=== PATIENT | female | born 1970 | race Caucasian/White ===

== ENCOUNTER 2022-05-29 10:12 | Inpatient (IN) | payer OTHER, SELFPAY ==
[2022-05-29] VITALS (39 sets, daily range): BP systolic 112–138; BP diastolic 49–92; PULSE 73–92; RESP 12–18; TEMP 36.4–37.7; O2SAT 97–100; BMI 30.4
[2022-05-29] MEDS: LACTATED RINGERS 1000 ML 1,000 ML 100 ML IV ×2 (10:40→12:06)
[2022-05-29] MEDS: SODIUM CHLORIDE 0.9 % (FLUSH) 10 ML SYRINGE IVF (10:40)
[2022-05-29 11:00] LABS: Hemoglobin* 11.3 gm/dL (12.0-16.0)
[2022-05-29] MEDS: CLINDAMYCIN 900 MG/50 ML-D5W IVPB (11:11)
[2022-05-29 11:19] LABS: Creatinine* 0.7 mg/dL (0.5-1.5); Est. Creatinine Clearance* 87.48; Estimated Glomerular Filt Rate 106 ml/min
[2022-05-29 11:25] LABS: Ur HCG Qualitative* Negative (Negative)
--- NOTE | 2022-05-29 11:25 | W.PM.NB ---
Nerve Block Nerve Block Time Seen by Provider: 11:13 Date Seen: 05/29/22 Type of block requested by surgeon for post-operative analgesia: TAP Side: bilateral Time out performed: Yes Verification of patient name: Yes Verification of date of : Yes Site marking: site marked Name of person performing procedure: Melvin Continuous monitoring Was continuous monitoring of O2 sat, B/P, secured entrance monitor, recorded every 15 minutes?: Yes Procedure Checklist: sterile prep, needles and gloves Ultrasound guided. Images saved: Yes Medications given in 5ml increments after negative aspiration: Marcaine %: 0.25 mL: 30 Needle gauge: 20 and Exparel mL: 10 Patient tolerated procedure well: Yes Additional comments: Needle noted adjacent to nerve Block Charges Block Charge (with Pro Fee): TAP Bilateral Use of Ultrasound Machine for Block: Yes- US Guidance/pain block
[2022-05-29] MEDS: BUPIVACAINE 0.5 %/EPI 1:200K 30 ML INJECTION (12:50)
--- NOTE | 2022-05-29 14:14 | W.ANESCHARGE ---
Anesthesia Charges Start Date/Time Anesthesia Start Date: 05/29/22 Anesthesia Start Time: 11:03 Stop Date/Time Anesthesia Stop Date: 05/29/22 Anesthesia Stop Time: 14:14
[2022-05-29] MEDS: HYDROmorphone 0.5 mg/0.5 ml inj IVP (14:25)
--- NOTE | 2022-05-29 14:34 | P.PCNOB_ITS ---
Procedure Type of Hysterectomy: Total Abdominal Pre-op/Post-op diagnoses: Pre-Op/Post-Op Diagnoses Operation Date: 05/29/22 11:50 <No data on this case meets the specified criteria> Procedure: Procedures Operation Date: 05/29/22 11:50 Actual Procedure Side Surgeon Diagnostic Laparoscopy and bilateral salpingectomy Open Total Abdominal Hysterectomy Bilateral Jovana Sorto MD Radiological Defense Officer: Sabrina Boyce Estimated blood loss (mL): 200 Anesthesia type: General Complications: none Fluid amount (mL): 1,800 Urine output (mL): 1,000 Weight of Uterus: 416 g Specimen: uterus, left tube and right tube Disposition: PACU Narrative: PREOPERATIVE DIAGNOSIS: 51-year-old with abnormal uterine bleeding - fibroids POSTOPERATIVE DIAGNOSIS: Same. NAME OF PROCEDURE: 1. Diagnostic laparoscopy 2. Laparoscopic bilateral salpingectomy 3. Conversion to total abdominal hysterectomy SURGEON: Jovana Sorto MD PERFECT BIND MACHINE OPERATOR: Sabrina Boyce MD. ANESTHESIA: General endotracheal, TAP block, and Local COMPLICATIONS: None ESTIMATED BLOOD LOSS: 200 mL URINE OUTPUT: 1000 mL clear urine at the end of the procedure IV FLUID: 1800 mL DRAINS: Aguero to gravity. FINDINGS: Exam under anesthesia: Mons normal, clitoris normal, urethral meatus normal. Labia minora and majora normal in appearance bilaterally. Perineum and anus normal appearance. Vaginal introitus normal appearance. Vaginal pink and well rugated with scant white discharge. Cervix pink and without lesion. Uterus sounded to 9 cm. Laparoscopy: Enlarged uterus that occupies most of the pelvic space. Minimal filmy adhesions of sigmoid colon to left sidewall. Filshie clip noted near the cornua of the left fallopian tube. The right fallopian tube appeared intact. However, after right salpingectomy, Essure coils were noted protruding from the right cornua. Normal bilateral ovaries. Normal-appearing liver. PROCEDURE IN DETAIL: Patient was taken to the operating room with IV running. She received clindamycin 900 mg and gentamicin 5mg/kg as preoperative prophylaxis. She was positioned in dorsal lithotomy position with her legs fully supported in Yellofin stirrups. General anesthesia was administered. She was prepped and draped in the usual sterile fashion. Pelvic exam under anesthesia was performed for the above-noted findings. Speculum was inserted. Cervix visualized and grasped along its anterior lip with a single-tooth tenaculum. Cervix was dilated with Hegar dilators to accommodate the VCare uterine manipulator. A medium-sized colpotomizer cup was selected. The tip of the uterine manipulator was inserted through the cervix into the uterine cavity and the balloon was inflated. The speculum was removed. The colpotomy cup was advanced, surrounding the cervix, and the proximal occluder was moved up along the shaft of the VCare and fixed in place. Aguero catheter was placed. Patient's legs were then placed in neutral position. Attention was turned to patient's abdomen. Infraumbilical area was infiltrated with a small amount of 0.5% Bupivacain. A 5 mm infraumbilical incision was made with a scalpel and carried down to the underlying layer of fascia with the hemostat. 5 mm camera was placed within the 5 mm Fios Kii trocar, and advanced under direct visualization through the anterior abdominal wall into the peritoneal cavity, while tenting up the anterior abdominal wall. The trocar was removed. The balloon was inflated, holding the port in place. Pneumoperitoneum was achieved. Survey of the abdomen and pelvis revealed the above-noted findings. Three additional port sites were created. The first was in the patient's left lower quadrant, just superomedial to the left ASIS. The second was a hand's breadth superior to and slightly medial to the first. The third was in the patient's right lower quadrant, just superomedial to the right ASIS. An 11 mm incision was made in the left lower quadrant, and a 5 mm incision was made at the other 2 sites, after assuring that large vessels were out of harm's way. A 11 mm Fios Kii port was inserted at the left lower quadrant site, and a 5 mm Fios Kii port at each of the other 2 sites, under direct visualization and without complication. The balloon on each of the four ports was inflated, holding each in place. Attention was first turned to the right fallopian tube, which was divided from the mesosalpinx, using the Powerseal device, proceeding laterally to medially, and the tube was amputated at the right uterine cornua. After removal of the fallopian tube, Essure coils were noted protruding from the right cornua. This was removed through the port site and sent to pathology. This procedure was repeated on the patient's left side, and the right fallopian tube was also amputated at the cornua and removed from the patient's abdomen. This was also sent to pathology for further analysis. The left round ligament was cauterized and transected with the Malena shaw. The utero-ovarian ligament was cauterized and transected, and the remnants of the right broad ligament were cauterized and transected between these two structures. The bladder flap was created on the patient's left side, moving laterally to medially. At this point, visualization was too obscured from the enlarged uterus to safely cauterize and transect the left uterine artery. There was minimal movement with the uterine manipulator despite multiple tries. Unable to safely to operate on right adnexa as well due to limited visualization. At this point, decision was made to convert from laparoscopic hysterectomy to an open abdominal hysterectomy. The fascia of the 11 mm LLQ port was closed with Luis Angel-Dheeraj laparoscopic closure device. Attention was then turned toward the open abdominal hysterectomy. A Pfannenstiel skin incision was made with a scalpel. This incision was carried down to the underlying layer of fascia with the Bovie. The fascia was incised in the midli ne and the incision extended laterally. The superior and inferior aspects of the fascial incision were grasped with Romaine clamps and the underlying rectus muscles dissected off sharply. The rectus muscles were in the midline. The underlying peritoneum was identified and entered bluntly. The peritoneal incision was extended superiorly and inferiorly with good visualization of the bladder. The patient was placed in some mild Trendelenburg positioning. The bowels were packed cephalad using a large moistened laparotomy sponge. The Robert O retractor was placed in the incision with care to make sure that all bowels were out of the way. This provided excellent visualization of the pelvis. [place] clamps were placed at the cornua bilaterally for traction. Both ureters were identified along their courses within the pelvic sidewall by palpation, patient body habitus made limited visualization. The right round ligament cauterized and ligated with the Powerseal. The anterior leaf of the broad ligament was opened to the midline from the right side. Down to the level of the cervix. The Powerseal was then used to cauterize and ligate towards the uterine arteries. The uterine vessels were skeletonized on the right side. The vessels were cauterized and transected. Excellent hemostasis was obtained. Attention was then turned to the left side. The anterior leaf of the broad ligament was opened from the left side to the midline durin the laparoscopic portion of this procedure. The bladder flap was then created bluntly. The bladder was further pushed caudally with a sponge stick. Again, the Powerseal was used to cauterize and ligate along the uterine body and down toward the left uterine vessels. Hemostasis was visualized. The left uterine vessels were ske letonized and then cauterized and transected. Subsequent pedicles were taken to reach the colpotomy cup. This was done There was bleeding noted near left uterine artery pedicle so a figure of eight was placed with 2-0 vicryl. After placement of the figure of eight, excellent hemostasis was obtained. At this point, bovie was moved along the circumference of the colpotomizer cup, until the uterus and cervix were freed from their attachments to the pelvis. The uterus with attached cervix was then passed off the field. The vaginal cuff was grasp with two Allis clamps. Excess bleeding was noted on the posterior vaginal cuff lowers the left side that was not amenable to bovie cautery. I placed continuous locking stitch with 0-vicryl along the later third of the posterior vaginal cuff towards the left vaginal angle. Afterwards, excellent hemostasis was obtained. The vaginal cuff was then closed with 0 vicryl continuous locking due to increased bleeding at the vaginal cuff. The abdomen and pelvis were then copiously irrigated and not active bleeding was identified. All laparotomy sponges and instruments were then removed. The subfascial tissues were carefully inspected and hemostasis assured. The fascia was re-approximated in a running fashion with 0 vicryl. The subcutaneous tissues were copiously irrigated and hemostasis assured. The subcutaneous adipose layer was re-approximated in 1 layers 4-0 vicryl in a running manner. The skin was closed in a subcuticular fashion with 4-0 Vicryl. A silver dressing was applied. The skin of each port site was closed in a subcuticular fashion with 4 0 Monocryl. Surgical glue was applied above this. The patient tolerated the procedure well. Sponge, lap, needle, instrument counts were reported as correct x2. After the drapes were removed, patient noted to have a 2 cm length superficial burn underneath her xyphoid, likely from laparoscopic light cord. loss control manager was notified to inspect the light cord in question for any malfunction. Bacitracin, 4x4 and Tegaderm was applied to the area. The patient was taken to recovery room awake and in stable condition. The uterus was weighed at the conclusion of the procedure, weight was 416 g in the operating room. PATHOLOGY SPECIMEN(S): Uterus, cervix, left fallopian tube, right fallopian tube.
[2022-05-29 15:35] LABS: Hemoglobin* 10.7 gm/dL (12.0-16.0)
[2022-05-29] MEDS: ONDANSETRON 2 MG/ML inj 4 MG IVP ×2 (15:42→21:59)
[2022-05-29] MEDS: levETIRAcetam 500 MG TABLET 1500 MG PO (16:21)
[2022-05-29] MEDS: lamoTRIgine 100 MG TABLET 300 MG PO (16:21)
[2022-05-29] MEDS: HYDROCODONE-ACETAMIN 5-325 MG 1 TAB PO ×2 (17:37→19:37)
[2022-05-29] MEDS: IBUPROFEN 600 MG TABLET PO ×2 (17:37→23:44)
--- NOTE | 2022-05-29 19:07 | PC.NURSE ---
shift note: Pt back from surgery at 1455, A&O, VSS on RA. Pt reporting pain at 6/10 but referring to the pain as tolerable and declined medication. Aqua-K pad given for comfort with pt reporting relief. PRN Zofran given for nausea with pt reporting relief, no emesis. Pt given PRN Rudyard and scheduled Ibuprofen around 1745, pt reported good relief, declined need for further pain medication. Surgical dressings C/D/I, abdominal binder in place. Aguero patent and draining clear, pale yellow urine. Pt tolerated pudding, jello, and water with no emesis. Pt resting in bed with call light within reach.
[2022-05-29] MEDS: lamoTRIgine 100 MG TABLET 150 MG PO (20:59)
[2022-05-29] MEDS: ZOLPIDEM 5 MG TABLET PO (21:00)
[2022-05-29] MEDS: OXYCODONE 5 MG TABLET PO (23:44)
[2022-05-29] MEDS: LACTATED RINGERS 1000 ML 1,000 ML 25 ML IV (23:44)
[2022-05-30 03:00] VITALS: BP 122/74; PULSE 79; RESP 20; TEMP 37; O2SAT 97
[2022-05-30] MEDS: HYDROCODONE-ACETAMIN 5-325 MG 1 TAB PO ×4 (04:42→22:08)
[2022-05-30] MEDS: IBUPROFEN 600 MG TABLET PO ×3 (06:04→19:44)
[2022-05-30] MEDS: lamoTRIgine 100 MG TABLET 300 MG PO ×3 (06:05→16:06)
--- NOTE | 2022-05-30 06:26 | PC.NURSE ---
END OF SHIFT NOTE: PT PLEASANT AND COOPERATIVE. DENIES CP, SOB, N/V. AMBULATES WITH SBA/A1. VSS ON RA; AFEBRILE. GILLESPIE PATENT. LR@100ML/HR TO RIGHT HAND IV. PT RATES ABDOMINAL PAIN 5-8/10 WITH RELIEF FROM SCHEDULED AND PRN PAIN MEDS (SEE eMAR), HEAT FROM AQUA-K PAD AND ABD BINDER. PT TOLERATING REGULAR DIET. WALKED VELOZ x1 (100FT). ABDOMINAL INCISION AND LAP SITES C/D/I.
[2022-05-30 07:00] VITALS: BP 137/81; PULSE 79; RESP 18; TEMP 37.3; O2SAT 96
--- NOTE | 2022-05-30 08:24 | P.GYNPN_ITS ---
FOOD PREPARATION SUPERVISOR - A/P Assessment and plan (1) Anemia: Status: Acute Plan Postoperative Review: - Admitted for: Surgery - Surgical procedure: NAME OF PROCEDURE: 1. Diagnostic laparoscopy 2. Laparoscopic bilateral salpingectomy 3. Conversion to total abdominal hysterectomy - Skin incision: 4 laparoscopic port sites. Pfannestiel - Closure: sutures - Estimated blood loss: 200 mL - Intraoperative Complications: none - Urine output: adequate - Preop H/H: 10.7 - Postop H/H: 9.7 Postoperative care: - Diet: Advance as tolerated - Fluid: Encourage oral intake - Activity: Encourage ambulation and incentive spirometry - Pain: [place], tylenol and Ibuprofen - DVT prophylaxis: SCDs and TEDs when not ambulating Dispo: Patient is POD#1. Need the following milestones: increase ambulation and urinate without schmidt. Anticipate discharge POD#2. Postoperative Procedures: Procedures Operation Date: 05/29/22 11:50 Actual Procedure Side Surgeon p Attempted Laparoscopic and converted to Total Abdominal Hysterectomy, Bilateral Salpingectomy, Cystoscopy Bilateral Jovana Nasima Sorto MD Postoperative day: 1 Time Spent With Patient Time: Total time spent is greater than 50% in coordination of care (as documented) at patient's floor/unit and/or counseling patient: Time with patient: less than 15 minutes FOOD PREPARATION SUPERVISOR- PN:Subj Post-Op Subjective Time Seen by Provider: 08:24 Date Seen: 05/30/22 Interval history: Overnight patient did well. Only complains of mild gas pain and fatigue. She took a walk around the unit at 4 am and tolerated it well. Her pain is well controlled on oral pain medications. She is tolerating a regular diet. She has passed flatus. She is ambulating without difficulty. She had great urine output. Schmidt will come out this AM. Patient denies chest pain, SOB, n/v, headache, or dizziness. Discussed with patient that there was a?2 cm length superficial burn underneath her xiphoid. She states that's where she had a mole removed and had some irritation before. She also state that her new detergent has been given her rashes on her face as well so she wonders if that could be. I discuss with her it's most likely a superficial burn from our light cord. Bacitracin should help. Denies denies any irritation from it currently. Post Operative Details: Post-operative day number #1: status post diagnostic laparoscopy, laparoscopic bilateral salpingectomy, and conversion to total abdominal hysterectomy. FOOD PREPARATION SUPERVISOR-PN: Obj Exam Physical Exam: Vital signs: Temp Pulse Resp BP Pulse Ox O2 Del Method 99.1 F 79 18 137/81 96 05/30/22 07:00 05/30/22 07:00 05/30/22 07:00 05/30/22 07:00 05/30/22 07:00 05/30/22 07:00 Narrative: VITAL SIGNS: See nursing notes in the medical record above. She is afebrile. GENERAL: Pleasant, fatigued woman in no acute distress. PSYCHIATRIC: Alert and oriented x3. Normal speech pattern and affect. HEART: Regular rate and rhythm. LUNGS: Clear to auscultation bilaterally. ABDOMEN: Soft, appropriately tender, and mildly distended with positive bowel sounds throughout. INCISION(S): Port sites (4): All clean, dry and intact. The skin adhesive gel is partially removed. No evidence of erythema, induration, skin separation or hernia. Pfannenstiel incision: covered with silver dressing. PELVIC: Deferred. EXTREMITIES: Without cyanosis, clubbing, or edema. SCDs on NEUROLOGIC: Grossly intact Urinary Catheter Management: Schmidt: Cath placed during this visit: yes Urethral indwelling: Yes Reason for continuing: surgical procedure Insertion date: 05/29/22 Insertion time: 11:05 FOOD PREPARATION SUPERVISOR - PN: Obj Data Labs Labs: Laboratory Results - last 24 hr 05/29/22 05/29/22 05/29/22 10:30 10:51 10:51 Hgb 11.3 L Creatinine 0.7 Estimated Creat Clear 87.48 Estimated GFR 106 Urine HCG, Qual Negative Blood Type Antibody Screen 05/29/22 05/29/22 10:51 15:27 Hgb 10.7 L Creatinine Estimated Creat Clear Estimated GFR Urine HCG, Qual Blood Type A Positive Antibody Screen NEGATIVE
[2022-05-30] MEDS: SIMETHICONE 80 MG TAB.CHEW 160 MG PO (09:39)
[2022-05-30] MEDS: DOCUSATE SODIUM 100 MG CAPSULE PO (09:39)
[2022-05-30] MEDS: ONDANSETRON 2 MG/ML inj 4 MG IVP ×2 (11:02→16:25)
[2022-05-30 11:29] LABS: Hemoglobin* 9.7 gm/dL (12.0-16.0)
[2022-05-30 15:00] VITALS: BP 126/84; PULSE 73; RESP 16; TEMP 37.4; O2SAT 99
[2022-05-30 15:20] VITALS: TEMP 37.4
[2022-05-30] MEDS: levETIRAcetam 500 MG TABLET 1500 MG PO (16:05)
[2022-05-30] MEDS: SODIUM CHLORIDE 0.9 % (FLUSH) 10 ML SYRINGE IVF (16:25)
--- NOTE | 2022-05-30 17:16 | PC.NURSE ---
End of shift-- Very pleasant and cooperative, alert and oriented patient. VSS and pt is afebrile. SPO2 maintained >90% on RA. Pain appears well managed with [place] and Motrin. Dressing to lower abdomen is dry and intact with old, dry drainage present. Pt also has 2x lap sites GEODETIC SURVEY DIRECTOR with steri strips and 1 small area of skin irritation on upper abdomen covered with a small dressing that is C/D/I. LS CTA. BS+ x4 and pt is passing flatus. She denied nausea, but did request Zofran to prevent it. She tolerated a regular diet, but ate only very small amounts today. Aguero drained approximately 1150ml of urine today and was DC'd. Pt has voided since. She has had a small amount of vaginal bleeding including 1x quarter sized clot. She ambulated in hallway with SBA and was up to BR independently and tolerated it well. Report to RITU Portillo.
[2022-05-30 19:00] VITALS: BP 117/83; PULSE 80; RESP 16; TEMP 37.4; O2SAT 96
[2022-05-30] MEDS: levETIRAcetam 500 MG TABLET PO (21:02)
[2022-05-30] MEDS: lamoTRIgine 100 MG TABLET 150 MG PO (21:02)
[2022-05-30 23:00] VITALS: BP 118/66; PULSE 84; RESP 16; TEMP 37.5; O2SAT 96
[2022-05-31] MEDS: IBUPROFEN 600 MG TABLET PO ×2 (02:00→06:03)
[2022-05-31 03:00] VITALS: BP 105/72; PULSE 80; RESP 16; TEMP 36.6; O2SAT 96
[2022-05-31] MEDS: HYDROCODONE-ACETAMIN 5-325 MG 1 TAB PO ×2 (04:03→10:11)
--- NOTE | 2022-05-31 05:50 | PC.NURSE ---
Shift note: Pt is doing well, able to ambulate to the BR independently. Pain has been between 3 and 6. No SOB, Cough, and n/v noted. Dressing appears clean and dry. Able to urinate many times after catheter removal. Vitally stable.
[2022-05-31] MEDS: levETIRAcetam 500 MG TABLET 1500 MG PO (06:03)
[2022-05-31] MEDS: lamoTRIgine 100 MG TABLET 300 MG PO (06:03)
[2022-05-31 07:45] VITALS: BP 123/74; PULSE 76; RESP 16; TEMP 36.8; O2SAT 97
--- NOTE | 2022-05-31 09:27 | P.DS_ITS ---
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 Indication for surgery: Severe menorrhagia with known uterine leiomyoma. Intraoperative findings were notable for: Exam under anesthesia: Mons normal, clitoris normal, urethral meatus normal. L abia minora and majora normal in appearance bilaterally. Perineum and anus normal appearance.? Vaginal introitus normal appearance.? Vaginal pink and well rugated with scant white discharge. Cervix pink and without lesion. Uterus sounded to 9 cm. Laparoscopy:? Enlarged uterus that occupies most of the pelvic space. Minimal filmy adhesions of sigmoid colon to left sidewall.? Filshie clip noted near the cornua of the left fallopian tube.? The right fallopian tube appeared intact.? However, after right salpingectomy, Essure coils were noted protruding from the right cornua.? Normal bilateral ovaries.? Normal-appearing liver. She had a diagnostic laparoscopy that was converted to total abdominal hysterectomy. Postoperative course has been uneventful. Vitals have been stable. She has remained afebrile. Today, on postoperative day 1, she reports the pain is well controlled. She has been able to ambulate Without difficulty. She is tolerating regular diet. She is passing flatus. Aguero catheter has been removed, and she is voiding without difficulty. 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 See nursing notes in the medical record above. She is afebrile. GENERAL:? Pleasant, fatigued woman in no acute distress. PSYCHIATRIC: Alert and oriented x3. Normal speech pattern and affect. HEART:? Regular rate and rhythm. LUNGS:? Clear to auscultation bilaterally. ABDOMEN:? Soft, appropriately tender, and soft positive bowel sounds throughout. INCISION(S): Port sites (4): All clean, dry and intact. The skin adhesive gel is partially removed. No evidence of erythema, induration, skin separation or hernia. Pfannenstiel incision: covered with silver dressing. Silver dressing intact. PELVIC:? Deferred. EXTREMITIES:? Without cyanosis, clubbing, or edema. SCDs on NEUROLOGIC:? 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 - DS: Data Data Completed and Pending Labs on day of discharge: Labs from last 24 hours 05/30/22 11:22 Hgb 9.7 L Procedures Procedures: Procedures Operation Date: 05/29/22 11:50 Actual Procedure Side Surgeon p Attempted Laparoscopic and converted to Total Abdominal Hysterectomy, Bilateral Salpingectomy, Cystoscopy Bilateral Jovana Sorto MD Complications: none Discharge Plan Discharge Disposition: Home, Self-Care Date of Admission: 05/29/22 10:12 Attending Provider on Discharge: Jovana Sorto Primary Care Provider: Jose Sosa Condition: Stable Anticipated Discharge Date/Time: 05/31/22 10:03 Discharge Medications: New acetaminophen 325 mg Tablet 650 mg PO Q4H PRN (Reason: minor pain) 30 Days Qty: 180 0RF docusate sodium 100 mg Capsule 100 mg PO BID PRN (Reason: Constipation) 30 Days Qty: 60 0RF ibuprofen 600 mg Tablet 600 mg PO Q6H 30 Days Qty: 120 0RF simethicone 80 mg Tablet,Chewable 160 mg PO Q4H PRN30 Days Qty: 180 0RF sennosides [Senna Lax] 8.6 mg tablet 8.6 mg PO DAILY Qty: 30 0RF ferrous sulfate 27 mg iron tablet 27 mg PO DAILY Qty: 30 0RF hydrocodone-acetaminophen 5-325 mg tablet 1 tab PO Q6H PRN (Reason: pain) Qty: 20 0RF Continued lamotrigine [Lamictal] 100 mg tablet 150 - 300 mg PO QID Rx Instructions: 300MG AM, NOON, SUPPER AND 150MG HS levetiracetam [Keppra] 500 mg tablet 500 - 1,500 mg PO TID Rx Instructions: 1500MG AM AND SUPPER, 500MG HS lorazepam 1 mg tablet 1 mg PO DAILY PRN Label Comments: TAKE ONE TABLET BY MOUTH NEEDED FOR SEIZURE AURA triamcinolone acetonide 0.5 % ointment 1 applic TOPICAL BID PRN Label Comments: APPLY TOPICALLY TO AFFECTED AREA(S) TWO TIMES DAILY. USE FOR UP TO 2 WEEKS. TAKE A WEEK OFF AND REPEAT. Discharge Orders: Discharge Order (Routine); Ordered 05/31/22 Ordered By: Jovana Sorto Patient Education: Iron Supplements (By mouth), Acetaminophen (By mouth), Hydrocodone/Acetaminophen (By mouth) (Vicodin, [place], Lortab), Ibuprofen (By mouth), Simethicone (By mouth), Laxative, Stool Softeners (By mouth) (Doculax, Colace, Colace Clear, DSS), Senna (By mouth), Hysterectomy (DC) Activity Level: Activity as Tolerated Discharge Diet: Regular Follow Up Appointments: Jose oSsa MD [Primary Care Provider] - Forms: [facility] Info Instructions Discharge Comments: Total Abdominal Hysterectomy POSTOPERATIVE INSTRUCTIONS ACTIVITY No heavy lifting/pushing/pulling for 4-6 weeks. Do not lift anything more than about 5-10 lbs (such as laundry, groceries, children, pets), vacuum, push heavy doors or grocery carts, etc. You may climb stairs as tolerated. Do not put anything in the vagina for 6 weeks after surgery unless otherwise ins tructed by your doctor (including tampons, douching, sexual intercourse, etc). No driving for about 2 weeks after surgery, while you are taking narcotic pain medication, or until you feel that you are ready. Practice checking your blind spot and stepping hard on the brake. Avoid sitting or lying in bed for more than 2 hours at a time while you are awake to reduce your risk of blood clots. You may return to work when directed by your physician. Please contact your doctor if you need any return to work letters or medical leave paperwork to be completed. WOUND CARE You will have one large incision on your abdomen. There will be dissolvable stitches under your skin that do not need to be removed. You will also have a silver dressing that comes off in 1 week. If the seal is broken on that silver dressing, it's ok to take it off early. Shower daily after surgery. Clean your incision with mild antibacterial soap and water. Pat your incision dry with a clean towel. No tub baths until wound is completely healed. Wash your hands frequently, especially before touching your incision, changing any dressings, after using the restroom, and before eating. PAIN MANAGEMENT Take your oral pain medication as needed. You should be taking Ibuprofen 600mg every 6 hours with 650 gram of Tylenol every 6 hours. You can take these together every six hours or alternate them every 3 hours. You should then take the [place] 5 as needed if you have breakthrough pain on top of the Tylenol and Ibuprofen. Some pain medications can cause constipation so you should take a stool softener (i.e. colace/senna) while you are on these medications. You may also take milk of magnesia or Miralax for constipation. WHAT TO EXPECT AT HOME Recovery from surgery is generally 4-6 weeks, but sometimes longer for more strenuous activity. It is normal to be very tired during this time. It is normal to have some drainage or a small amount of vaginal bleeding after surgery which may last up to 6 weeks. You will most likely experience gas pain, abdominal swelling, or shoulder pain for 24-72 hours after surgery. This is from the carbon dioxide gas put into your abdomen to better visualize your organs. A warm shower, heating pad, and/or walking may help. WHEN TO CALL YOUR DOCTOR: Fever (>100.4?F or 38.0?C) or chills. Incision problems such as redness, warmth, swelling, or foul smelling drainage. Severe nausea or persistent vomiting. Bright red vaginal bleeding (soaking >1 pad/hour) or foul smelling vaginal drainage. Severe pain not relieved with pain medication. Pain and swelling in your legs, especially if it is only on one side and not the other. Pain with urination, cloudy urine, or foul smelling urine. Or if you have any other problems or questions. CALL 911 OR GO TO THE EMERGENCY ROOM IF YOU HAVE: Any shortness of breath, difficulty breathing, or chest pain.
--- NOTE | 2022-06-09 10:24 | P.GYNHP_ITS ---
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 Indication for surgery: menorrhagia and pelvic pain likely secondary to fibroids TVUS on 04/09/2022: Heterogenously hypoechoic/isoechoic mass arising from the uterine fundus measuring 4.8 x 6.3 x 4.1 cm. The uterus measures 10.7x7.3x7.5 cm. Endometrium measures 6 millimeters. The ovaries are not visualized. Final impression: Large uterine fibroid measuring 6.3 cm. No changes since her last visit. She did see her PCP for preop clearance, Dr. Melly huntley. Recommendations include: Take scheduled seizure medication as close to on time schedule as possible.. Medications: 1. Lamictal - 300 mg TID QD + 150 mg at bedtime 2. Keppra - take 1500 mg morning and dinner, 500 mg at bedtime Past surgical hx 1. BTL 2010 No interval changes in her history. Review of Systems Status of ROS: Reports: 10 or more systems reviewed and unremarkable except as noted in History and below [facility] Medical History (Updated 05/31/22 @ 09:45 by Jovana Sorto MD) Asthma Seizure disorder Surgical History (Updated 04/15/22 @ 12:47 by Mayela Miller) History of surgery on wrist (2005) History of tubal ligation (2010) Family History (Updated 04/15/22 @ 12:49 by Mayela Miller) Mother Coronary artery disease Father High cholesterol Maternal Grandfather Coronary artery disease Stroke Maternal Grandmother Coronary artery disease Stroke Paternal Grandfather High cholesterol High blood pressure Diabetes Paternal Grandmother High cholesterol High blood pressure Diabetes Social History Smoking Status: Never smoker Do you use any of these nicotine containing products: None Second hand tobacco smoke exposure: No How often do you have six or more drinks on one occasion: Never AUDIT-C Alcohol total score: 0 Non-prescribed substance use: denies use service: No Meds Home Medications and Allergies Home Medications Medication Instructions Recorded Confirmed Type lamotrigine 100 mg tablet 150 - 300 mg PO QID 04/16/22 05/29/22 History (Lamictal) levetiracetam 500 mg tablet 500 - 1,500 mg PO TID 04/16/22 05/29/22 History (Keppra) lorazepam 1 mg tablet 1 mg PO DAILY PRN 05/27/22 05/29/22 History triamcinolone acetonide 0.5 % 1 applic topical BID PRN 05/27/22 05/29/22 History topical ointment Allergies Allergy/AdvReac Type Severity Reaction Status Date / Time penicillin V Allergy Unknown Unknown Verified 05/29/22 10:40 [employer] - Exam Physical Exam: Vital signs: Temp Pulse Resp BP Pulse Ox O2 Del Method 98.3 F 76 16 123/74 97 05/31/22 07:45 05/31/22 07:45 05/31/22 07:45 05/31/22 07:45 05/31/22 07:45 05/31/22 07:45 Narrative: Physical exam: General: No acute distress Psych: Alert and oriented x3, full affect Heart: Regular rate and rhythm, no murmur rub or gallop Lungs: Clear to auscultation bilaterally Abdomen: Soft, no tenderness, rebound, or guarding, no masses Skin: No lesions or rashes Lower extremities: No edema or erythema Pelvic exam: Deferred to OR Assessment and Plan Assessment and plan (1) Uterine fibroid: Status: Acute (2) Menorrhagia: Status: Acute (3) Anemia: Status: Acute Plan - Will proceed with scheduled surgery - Plan for inpatient admission after surgery
== END 2022-05-31 10:45 | disposition home or self-care (01) | DRG 742 ==
PROVIDERS: Admitting Provider Obstetrics & Gynecology; PCP Family Medicine; Visit Provider Obstetrics & Gynecology
PROC: 0UT94ZZ Resection of Uterus, Percutaneous Endoscopic Approach (ICD-10-PCS; principal; 2022-05-29 11:30)
DX: N92.0 Excessive and frequent menstruation with regular cycle (principal); D62 Acute posthemorrhagic anemia; D25.9 Leiomyoma of uterus, unspecified; J45.909 Unspecified asthma, uncomplicated; G40.909 Epilepsy, unspecified, not intractable, without status epilepticus; Z53.31 Laparoscopic surgical procedure converted to open procedure; T21.11XA Burn of first degree of chest wall, initial encounter; Y81.3 Surgical instruments, materials and general- and plastic-surgery devices (including sutures) associated with adverse incidents; Y92.234 Operating room of hospital as the place of occurrence of the external cause
CPT/HCPCS: 00840; 36415; 64488; 76942; 81025; 82565; 85018; 86850; 86900; 86901; 88307; A9270; C9290; J0131; J0330; J1100; J1170; J1580; J1885; J2250; J2405; J2704; J3010; J3475; J3490; J7120; S0077

== ENCOUNTER 2023-05-12 08:19 | Outpatient (CLI) | payer BC, SELFPAY | END 2023-05-12 08:20 | disposition home or self-care (01) | PROVIDERS: PCP Internal Medicine; Visit Provider Emergency Medicine | DX: R56.9 Unspecified convulsions (principal); R41.82 Altered mental status, unspecified | CPT/HCPCS: A0425; A0427 ==

== ENCOUNTER 2023-05-12 09:07 | Emergency (ER) | payer BC, SELFPAY ==
[2023-05-12] VITALS (17 sets, daily range): BP systolic 123–153; BP diastolic 82–105; PULSE 72–90; RESP 16–18; TEMP 36.8–37.4; O2SAT 94–99; BMI 28.2
--- NOTE | 2023-05-12 09:05 | ED.GENADULT ---
HPI - General Adult General Time Seen by Provider: 09:05 Date Seen: 05/12/23 Chief complaint: Seizure Stated complaint: seizures Source: patient Mode of arrival: EMS History of Present Illness HPI narrative: Tashia is a 52-year-old female, past medical history includes complex partial seizures, generalized anxiety disorder, presents emergency department via EMS with a seizure. According to family, including and daughter, father got up around 4:00 a.m., is going to let the dog out, spoke with the patient she explained that she was feeling too tired, he went and got his coffee. Daughter heard some noise in the bathroom, she went there and behind the bed her mom was having a seizure, she says it lasted around a minute, by the time father got there are it resolved, she was confused and postictal, once EMS arrived they did not give her any medications. Patient did have some diarrhea on Thursday otherwise he just came back from [facility], she had a good vacation. Patient has not had a seizure for over 9 years. Patient is currently on Lamictal and Briviact she has being seeing Dr. Paloma Herrmann ([facility], and since insurance changed, she saw her 2 months ago. Patient denies any pain at this time. Related Data Home Medications Medication Instructions Recorded Confirmed lorazepam 1 mg tablet 1 mg PO DAILY PRN 05/27/22 05/12/23 brivaracetam 100 mg tablet 100 mg PO BID 04/23/23 05/12/23 (Briviact) brivaracetam 50 mg tablet 50 mg PO BID 04/23/23 04/23/23 (Briviact) citalopram 10 mg tablet mg PO 04/23/23 04/23/23 citalopram 20 mg tablet 20 mg PO DAILY 04/23/23 04/23/23 lamotrigine 100 mg tablet 150 - 400 mg PO QID 04/23/23 05/12/23 (Lamictal) Previous Rx's Medication Instructions Recorded acetaminophen 325 mg tablet 650 mg (2 x 325 mg) PO Q4H PRN 05/31/22 minor pain 30 days #180 tabs brivaracetam 100 mg tablet 200 mg (2 x 100 mg) PO BID #60 tabs 05/12/23 (Briviact) Allergies Allergy/AdvReac Type Severity Reaction Status Date / Time penicillin V Allergy Unknown Unknown Verified 05/12/23 09:07 Review of Systems Status of ROS: Reports: 10 or more systems reviewed and unremarkable except as noted in History and below [facility] Surgical History (Updated 04/23/23 @ 14:45 by Macy Payton MD) History of bilateral salpingectomy ?Z90.79 - Acquired absence of other genital organ(s) (ICD-10) History of abdominal hysterectomy ?Z90.710 - Acquired absence of both cervix and uterus (ICD-10) History of tubal ligation (2010) ?Z98.51 - Tubal ligation status (ICD-10) Family History (Updated 04/15/22 @ 12:49 by Mayela Miller) Mother Coronary artery disease Father High cholesterol Maternal Grandfather Coronary artery disease Stroke Maternal Grandmother Coronary artery disease Stroke Paternal Grandfather High cholesterol High blood pressure Diabetes Paternal Grandmother High cholesterol High blood pressure Diabetes Social History (Updated 04/23/23 @ 16:32 by Samia Hammonds ~ CTA) What is your current living situation?: I presently have a place to live Problems where you live: no known problems In the past 12 months, utilities in danger of being shut off: no In past 12 months, lack of transportation kept you from medical appts, meetings, work, or getting things needed for daily living: no In the past 12 mos, have been you worried that your food would run out before you had money to buy more?: never true In the past 12 mos, the food you bought just didn't last and you didn't have money to buy more?: never true Smoking Status: Never smoker Do you use any of these nicotine containing products: None Second hand tobacco smoke exposure: No How often do you have six or more drinks on one occasion: Never AUDIT-C Alcohol total score: 0 Non-prescribed substance use: denies use How often does anyone, including family, friends and others, physically hurt you: never How often does anyone, including family, friends and others, insult or talk down to you: never How often does anyone, including family, friends and others, threaten you with harm: never How often does anyone, including family, friends and others, scream or curse at you: never Little interest or pleasure in doing things: not at all Feeling down, depressed, or hopeless: not at all service: No Exam Narrative: Exam Narrative: General: Patient has mildly postictal, no obvious distress HEENT: Head is atraumatic, tympanic membranes within normal limits bilaterally, pupils equal round reactive to light, extraocular muscles intact Tongue is atraumatic, dentition intact Neck: Nontender to palpation cervical spine, supple full range of motion Lungs: Clear to auscultation bilaterally Heart: Normal sinus rhythm S1-S2 Abdomen: Soft nontender, bowel sounds present Neuro: Mild confusion. Alert and awake. Muscle skeletal: +5 strength in lower extremities, +5 strength upper extremities Const: Vital Signs, click to edit/add: Vital Signs - 24 hr 05/12/23 08:57 05/12/23 09:48 05/12/23 09:49 Temperature 98.3 F Pulse Rate 83 81 Pulse Rate [Right Pulse Oximeter] 88 Respiratory Rate 18 16 Blood Pressure 140/95 H Blood Pressure [Ri ght Upper Arm] 138/105 H Pulse Oximetry 98 94 96 Oxygen Delivery Me thod Room Air 05/12/23 10:00 05/12/23 10:02 05/12/23 10:15 Temperature Pulse Rate 90 90 79 Pulse Rate [Right Pulse Oximeter] Respiratory Rate Blood Pressure 153/97 H Blood Pressure [Ri ght Upper Arm] Pulse Oximetry 97 97 95 Oxygen Delivery Me thod 05/12/23 10:43 05/12/23 10:45 05/12/23 11:00 Temperature Pulse Rate 90 89 78 Pulse Rate [Right Pulse Oximeter] Respiratory Rate Blood Pressure Blood Pressure [Ri ght Upper Arm] Pulse Oximetry 97 99 97 Oxygen Delivery Me thod 05/12/23 11:02 05/12/23 11:03 05/12/23 12:15 Temperature Pulse Rate 80 83 81 Pulse Rate [Right Pulse Oximeter] Respiratory Rate 16 16 Blood Pressure 133/82 123/91 H Blood Pressure [Ri ght Upper Arm] Pulse Oximetry 97 96 94 Oxygen Delivery Me thod 05/12/23 12:16 05/12/23 12:30 05/12/23 12:32 Temperature Pulse Rate 72 76 79 Pulse Rate [Right Pulse Oximeter] Respiratory Rate Blood Pressure 128/86 Blood Pressure [Ri ght Upper Arm] Pulse Oximetry 97 96 95 Oxygen Delivery Co thod Course Course ED Course: 9:10 AM: AIDET performed. vitals are normal. Workup will include IV peripheral, 0.9 normal saline bolus, will obtain CBC, lactate, CMP, magnesium, urinalysis, Lamictal level, Briviact level. To reach out to [facility] Neurology. differential includes but not limited to epilepsy, drug toxin ingestion, blood sugar abnormalities, cancer, syncope and electrolyte imbalances, CVA,. This includes a life-threatening complication of drug toxic ingestants or cancer. Suspect breakthrough seizure. Less likely CVA. Reevaluation(s) Time of Reevaluation #1: 10:53 Reevaluation #1: Spoke to patient's neurologist Dr. Bruno, her recommendations were to increase her Briavact to 200 mg bid and follow up with someone from the epilepsy clinic. workup showed a EKG with normal sinus rhythm, bpm 81, no ectopy or acute ST changes, troponin point of care, negative, CBC showed mildly elevated neutrophils but normal leukocytes, metabolic panel showed mildly elevated blood glucose 118, otherwise unremarkable, lactate within normal limit. urinalysis showed trace protein, and otherwise unremarkable. recommendations were to go ahead with further imaging, CT head without IV contrast, CT head and neck angiogram based on patient's continual aphasia, however patient has a history of mild aphasia post seizure per neurology. this was explained with patient and family they were in agreement, She also recommended additional 100 mg oral or IV Briavact here in the ED. Time of Reevaluation #2: 11:35 Reevaluation #2: CT head without IV contrast: IMPRESSION: 1. No intracranial hemorrhage or territorial infarction. 2. Mild microangiopathic changes and diffuse parenchymal volume loss. CTA head: IMPRESSION: Patent proximal intracranial vasculature. CTA neck MPRESSION: 1. Patent cervical vasculature. 2. 2.8cm heterogeneous right thyroid lesion. Further evaluation with ultrasound is recommended. Time of Reevaluation #3: 12:46 Reevaluation #3: MR Brain without contrast: IMPRESSION: 1. No acute infarction, mass effect, or intracranial hemorrhage. 2. Few punctate FLAIR hyperintensities in the supratentorial white matter are nonspecific, though typical for sequelae of minimal chronic microvascular ischemic changes or migraine headaches. Patient was updated on the imaging results, she did well during stay in emergency department, no recurrence of seizure activity, her mentation improved during her stay, she was given oral Briavact 100 mg since unable to give IV, plan would be to discharge, she will be taking her original Lamictal as prescribed, increase her Briviact to 200 mg b.i.d., patient needs to follow-up with primary care provider here at the [facility] to receive a referral to [facility]rology over the next few weeks, for ER follow-up and recheck, reasons to return were given. Vital Signs Vital signs: Initial Vital Signs Temperature 98.3 F 05/12/23 08:57 Temperature Source Temporal Artery Scan 05/12/23 08:57 Pulse Rate 88 05/12/23 08:57 Pulse Rhythm Regular 05/12/23 08:57 Respiratory Rate 18 05/12/23 08:57 Blood Pressure 138/105 H 05/12/23 08:57 Blood Pressure Mean 116 H 05/12/23 08:57 Blood Pressure Position Semi-Fowlers 05/12/23 08:57 Pulse Oximetry 98 05/12/23 08:57 Oxygen Delivery Method Room Air 05/12/23 08:57 Vital Signs Temperature 98.3 F 05/12/23 08:57 Pulse Rate 88 05/12/23 08:57 Respiratory Rate 18 05/12/23 08:57 Blood Pressure 138/105 H 05/12/23 08:57 Pulse Oximetry 98 05/12/23 08:57 Oxygen Delivery Method Room Air 05/12/23 08:57 Temperature 98.3 F 05/12/23 08:57 Pulse Rate 79 05/12/23 12:32 Respiratory Rate 16 05/12/23 12:15 Blood Pressure 128/86 05/12/23 12:32 Pulse Oximetry 95 05/12/23 12:32 Oxygen Delivery Method Room Air 05/12/23 08:57 Medications Administered Medications: Discontinued Medications Generic Name Dose Route Start Last Admin Trade Name Freq PRN Reason Stop Dose Admin Sodium Chloride 1,000 mls @ 1,000 mls/hr 05/12/23 09:27 05/12/23 09:42 0.9 % Sodium Chloride 1000 Ml IV 05/12/23 10:26 1,000 mls/hr .Q1H MADELYN Administration Lorazepam 1 mg 05/12/23 11:13 05/12/23 11:21 Lorazepam 1 Mg Tablet PO 05/12/23 11:14 1 mg ONCE ONE Administration Medical Decision Making Lab Data Labs: Lab Results 05/12/23 05/12/23 05/12/23 Range/Units 09:28 09:36 10:00 WBC 4.41 L (4.50-11.00) K/uL RBC 4.74 (4.00-5.20) m/uL Hgb 14.3 (12.0-16.0) gm/dL Hct 43.5 (33.0-51.0) % MCV 92 (80-100) fL MCH 30 (26-34) pg MCHC 33 (32-36) gm/dL RDW Coeff of Rebecca 12.6 (11.5-15.5) % Plt Count 217 (140-440) K/uL Neut % (Auto) 84.5 H (42.0-72.0) % Lymph % (Auto) 7.7 L (20-44) % [place] % (Auto) 7.3 (0.0-11.0) % Eos % (Auto) 0.5 (0.0-7.0) % Baso % (Auto) 0.0 (0.0-3.0) % Neut # (Auto) 3.70 (1.7-7.0) K/uL Lymph # (Auto) 0.30 L (0.90-2.90) K/uL [place] # (Auto) 0.30 (0.00-0.90) K/UL Eos # (Auto) 0.00 (0.00-0.50) K/uL Baso # (Auto) 0.00 (0.00-0.30) K/uL Abs Immat Gran (auto) 0.00 (0.00-0.30) K/uL Imm/Tot Granulo (auto) 0.0 % Sodium 137 (135-149) mmol/L Potassium 4.8 (3.6-5.1) mmol/L Chloride 104 (96-114) mmol/L Carbon Dioxide 27 (20-32) mmol/L Anion Gap 6 L (7-15) mEq/L BUN 11 (7-30) mg/dL Creatinine 0.7 (0.5-1.5) mg/dL Estimated Creat Clear 93.50 Estimated GFR 105 ml/min Glucose 118 H (60-115) mg/dL Lactate 0.8 (0.5-1.9) mmol/L Calcium 9.0 (8.4-10.6) mg/dL Magnesium 1.9 (1.5-2.6) mg/dL Total Bilirubin 0.5 (0.1-1.5) mg/dL AST 31 (12-35) U/L ALT 23 (4-35) U/L Alkaline Phosphatase 89 (40-150) U/L Total Protein 7.7 (6.0-8.3) g/dL Albumin 4.5 (3.3-5.0) g/dL Urine Color Yellow (Yellow) Urine Appearance Slightly Cloudy A (Clear) Urine pH 8.5 (5.0-8.5) Ur Specific Sawyer 1.015 (1.000-1.030) Urine Protein Trace A (Negative) Urine Glucose (UA) Negative (Negative) Urine Ketones Negative (Negative) Urine Blood Negative (Negative) Urine Nitrite Negative (Negative) Urine Bilirubin Negative (Negative) Urine Urobilinogen 0.2 (0.2-1.0) Ur Leukocyte Esterase Negative (Negative) Urine RBC 0-2 (0-2) Urine WBC 0-2 (0-5) Ur Squamous Epith Cells Moderate A (None-Few) Urine Bacteria None (None) POC Troponin I 0.01 (0.01-0.04) ng/ml Discharge Plan Discharge Clinical Impression: Thyroid lesion, Seizure, Complex partial seizure disorder Patient Disposition: Home, Self-Care Condition: Improved Instructions: Recurrent Seizures in Adults (ED) Additional Instructions: To follow-up with primary care provider here at [facility], to get a referral to see Neurology at [facility], To increase Briviact to 200 mg twice daily, return if worsening symptoms. Prescriptions: New Briviact 100 mg tablet 200 mg PO BID Qty: 60 0RF No Action Briviact 100 mg tablet 100 mg PO BID Briviact 50 mg tablet 50 mg PO BID citalopram 20 mg tablet 20 mg PO DAILY citalopram 10 mg tablet PO lamotrigine [Lamictal] 100 mg tablet 150 - 400 mg PO QID Rx Instructions: 300MG AM, 4 at NOON, 3 at SUPPER AND 150MG HS lorazepam 1 mg tablet 1 mg PO DAILY PRN Patient Comments: TAKE ONE TABLET BY MOUTH NEEDED FOR SEIZURE AURA acetaminophen 325 mg Tablet 650 mg PO Q4H PRN (Reason: minor pain) 30 Days Qty: 180 0RF Follow Up/Referrals: Jose Sosa MD [Staff Physician] - Stand Alone Forms: OROS Info Instructions
--- OUTSIDE RECORDS SUMMARY | 2023-05-12 09:32 | XMS_ITS | Continuity of Care Document ---
Author Name Unknown Organization [facility] Address [address] [place] [address] Phone Care Team Providers Care Street Car Inspector Name Role Phone Jimmy Sue MD Unavailable Unavailable Allergies, Adverse Reactions, Alerts Substance Reaction Status Criticality Penicillins Active No Information Medications Medication Instructions Dosage Effective Dates (start - stop) Status Comments LAMICTAL (unknown strength) Not Available - Active KEPPRA (unknown strength) Not Available - Active ZONEGRAN (unknown strength) Not Available - Active ACYCLOVIR (unknown strength) Not Available - Active Procedures Procedure Date Office/outpatient visit,[facility] [place] Advance Directives Directive Yes / No Effective Date File Name Resuscitation Not Answered N/A N/A Life Support Not Answered N/A N/A Intubation Not Answered N/A N/A Antibiotics Not Answered N/A N/A IV Fluid Support Not Answered N/A N/A Tube Feed Not Answered N/A N/A Other Directive N/A N/A WARNING:The information contained in this section is historical and is provided for information only and does not constitute a legal document or any assurance that the information is still accurate. Please verify the information with the horvath of the legal document before using it for clinical purposes. Encounters Encounter Description Practice Location Reason(s) For Visit Diagnoses Date Provider Providers Copied on Encounter [facility], [address] [place], [place] [address] [place] [address], [address], [place] tel:[phone] [facility] No Information Vikram Marquez. [facility], [address], [address], [place], [place], [id number] , [place]. tel:[phone] Office/outpat ient visit,new, mod [facility], [address], [place], [address], [place] tel:[phone] [facility] No Information Vikram Marquez. [facility], [address], [address], [place], [place], [id number] , [place]. [phone] Referring Provider: Patrick Pickard, [address], [place], [address]. tel:[phone] Family History Family Member Type Diagnosis Age At Onset Mother Problem (finding) low back problems Father Problem (finding) hypertension Mother Problem (finding) Heart disease Payers Payer name Insurance type Covered green party ID Authoriza tion(s) No Information Social History Type Description Quantity Date Captured Comments Alcohol Use Details Unknown Caffeine Use Details Unknown Tobacco Use Status No Information Smoking Status Never smoker Sex Female Vital Signs Date / Time: Height Weight BMI Pulse Rate Blood Pressure Temperature Respiratory Rate Body Surface Area Head Circumference Head Circ. Percentile Wt./Nish. Percentile BMI percentile Pulse Ox Inhaled Ox 9:17 AM 66.00 in 78.744 kg (173.60 lbs) 28.0 2 kg/m eter (2) 80 /min 121/76 mm[Hg] Chief Complaint And Reason For Visit No Information Reason For Referral Reason For Referral No Information History Of Present Illness Encounter Date Complaint History Of Prese nt Illness No Information Functional Status Date Functional Assessmen t No Information Instructions Date Instruction Additional Infor mation No Information Assessments Type Assessment Date No Information Patient Care Teams Name Effective Dates (start - stop) Status Members No Information
--- OUTSIDE RECORDS SUMMARY | 2023-05-12 09:32 | XMS_ITS | Patient Health Record ---
Author Name Unknown Organization [facility] Address [address] [place] [address] Care Team Providers Care Calender Wind Up Helper Name Role Phone Ina BAKER, Jose Primary Care Provider Paloma Mijares Unavailable [phone] ALLERGIES Allergen (clinical drug ingredient) Drug/Non Drug Allergy documented on EMR Reaction Allergy Type Onset Date Status Penicillin V-potassium Unknown Drug Allergy Active REASON FOR REFERRAL No Information MEDICATIONS Medication SIG (Take, Route, Frequency, Duration) Notes Start Date End Date Status LaMICtal 100 MG as directed Orally 3 tablets (300mg) in am, 4 tablets (400mg) at midday, 3 tablets (300mg) in pm, 1.5 tablets (150mg) at bedtime for 30 days DAW1. Please file until requested, thanks 08/21/2022 Active Fenofexadine prn Maame Active LORazepam 1 mg 1 tablet as needed buccally prn seizure/aura may repeat if auras continue at 5 minutes - Max dose in 24 hours is 2mg for 30 days Active Brivaracetam 100 MG 1 tablet (100mg) Orally Twice a day (take with 50mg tablet for total daily dose of 150mg BID) for 30 days 08/26/2022 Active Brivaracetam 50 MG 1 tablet (50mg) Orally Twice a day (take with 100mg tablet for total daily dose of 150mg BID) for 30 days 08/26/2022 Active SOCIAL HISTORY Sex Assigned At : Social History Observation Description Sex Assigned At Unknown Alcohol Question Answer Notes Did you have a drink contain ing alcohol in the past year? Yes How often did you have a dri nk containing alcohol in the past year? Two to four times a month (2 points) How many drinks did you have on a typical day when you were drinking in the past year? 1 or 2 (0 points) How often did you have six o r more drinks on one occasion in the past year? Never (0 points) Points 2 Interpretation Negative Tobacco Use Question Answer Notes Are you a: nonsmoker Additional Findings: Tobacco Non-User Current no n-smoker PROBLEMS Problem Type ICD Code Onset Dates Problem Status W/U Status Risk SNOMED Code Notes Problem Localization-rela eleni (focal) (partial) symptomatic epilepsy and epileptic syndromes with complex partial seizures, intractable, without status epilepticus (G40.219) Active confirmed Epilepsy characterized by intractable complex partial seizures (479117026) Problem Allergic rhinitis, unspecified (J30.9) Active confirmed Allergic rhinit is (41314168) Problem Other intervertebral disc displacement, 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) Active confirmed Displacement of lumbar intervertebral disc without myelopathy (67355376) Problem Other interceptor operator (current) drug therapy (Z79.899) Active confirmed Long-term current use of drug therapy (076981014) Problem Family history of ischemic heart disease and other diseases of the circulatory system (Z82.49) Active confirmed Family histo ry of ischemic heart disease (257734579) VITAL SIGNS Heart Rate 79 /min 08/21/2022 Blood pressure diastolic 83 mm Hg 08/21/2022 Height-cm 167.64 cm 11/26/2022 11/26/22: vitals deferred d/t televisit Height 66 in 11/26/2022 11/26/22: vitals deferred d/t televisit Blood pressure systolic 134 mm Hg 08/21/2022 Weight 82.3 kg 08/21/2022 BMI 29.28 kg/m2 08/21/2022 Encounters Encounter Location Date Provider Diagnosis [facility] [address] [place] [address] 08/21/2022 Paloma Herrmann Localization-related (focal) (partial) symptomatic epilepsy and epileptic syndromes with complex partial seizures, intractable, without status epilepticus G40.219 and Other interceptor operator (current) drug therapy Z79.899 [facility] [address] [place] [address] 11/26/2022 Paloma Herrmann Localization-related (focal) (partial) symptomatic epilepsy and epileptic syndromes with complex partial seizures, intractable, without status epilepticus G40.219 and Other shelter (current) drug therapy Z79.899 [facility] [address] [place] [address] 04/30/2023 Paloma Herrmann [facility] [address] [place] [address] 07/31/2022 Paloma Herrmann [facility] [address] [place] [address] 07/31/2022 Paloma Herrmann Localization-related (focal) (partial) symptomatic epilepsy and epileptic syndromes with complex partial seizures, intractable, without status epilepticus G40.219 [facility] [address] [place] [address] 08/21/2022 Paloma Herrmann [facility] [address] [place] [address] 09/02/2022 Paloma Herrmann [facility] [address] [place] [address] 02/05/2023 Paloma Herrmann Localization-related (focal) (partial) symptomatic epilepsy and epileptic syndromes with complex partial seizures, intractable, without status epilepticus G40.219 [facility] [address] [place] [address] 02/12/2023 Paloma Herrmann Other interceptor operator (current) drug therapy Z79.899 [facility] [address] [place] [address] 04/15/2023 Paloma Herrmann Localization-related (focal) (partial) symptomatic epilepsy and epileptic syndromes with complex partial seizures, intractable, without status epilepticus G40.219 [facility] [address] [place] [address] 08/25/2022 Paloma Herrmann Localization-related (focal) (partial) symptomatic epilepsy and epileptic syndromes with complex partial seizures, intractable, without status epilepticus G40.219 and Other interceptor operator (current) drug therapy Z79.899 [facility] [address] [place] [address] 09/04/2022 Paloma Herrmann [facility] [address] [place] [address] 03/25/2023 Paloma Herrmann Other interceptor operator (current) drug therapy Z79.899 ; Localization-related (focal) (partial) symptomatic epilepsy and epileptic syndromes with complex partial seizures, intractable, without status epilepticus G40.219 and Localization-related (focal) (partial) symptomatic epilepsy and epileptic syndromes with complex partial seizures, intractable, without status epilepticus G40.219 ASSESSMENTS Encounter Date Diagnosis Assessment Notes Treatment Notes Treatment Clinical Notes 07/31/2022 Localization-related (focal) (partial) symptomatic epilepsy and epileptic syndromes with complex partial seizures, intractable, without status epilepticus (ICD-10 - G40.219) 08/21/2022 Localization-related (focal) (partial) symptomatic epilepsy and epileptic syndromes with complex partial seizures, intractable, without status epilepticus (ICD-10 - G40.219) 08/21/2022 Other shelter (current) drug therapy (ICD-10 - Z79.899) 08/25/2022 Localization-related (focal) (partial) symptomatic epilepsy and epileptic syndromes with complex partial seizures, intractable, without status epilepticus (ICD-10 - G40.219) 08/25/2022 Other shelter (current) drug therapy (ICD-10 - Z79.899) 11/26/2022 Localization-related (focal) (partial) symptomatic epilepsy and epileptic syndromes with complex partial seizures, intractable, without status epilepticus (ICD-10 - G40.219) 11/26/2022 Other interceptor operator (current) drug therapy (ICD-10 - Z79.899) 02/05/2023 Localization-related (focal) (partial) symptomatic epilepsy and epileptic syndromes with complex partial seizures, intractable, without status epilepticus (ICD-10 - G40.219) 02/12/2023 Other interceptor operator (current) drug therapy (ICD-10 - Z79.899) 03/25/2023 Other shelter (current) drug therapy (ICD-10 - Z79.899) 04/15/2023 Localization-related (focal) (partial) symptomatic epilepsy and epileptic syndromes with complex partial seizures, intractable, without status epilepticus (ICD-10 - G40.219) 03/25/2023 Localization-related (focal) (partial) symptomatic epilepsy and epileptic syndromes with complex partial seizures, intractable, without status epilepticus (ICD-10 - G40.219) 03/25/2023 Localization-related (focal) (partial) symptomatic epilepsy and epileptic syndromes with complex partial seizures, intractable, without status epilepticus (ICD-10 - G40.219) PLAN OF TREATMENT Pending Test Test Name Order Date COMPREHENSIVE METABOLIC PANEL 09/27/2019 CBC (INCLUDES DIFF/PLT) 09/27/2019 LAMOTRIGINE 09/27/2019 LEVETIRACETAM 09/27/2019 Future Test Test Name Order Date DEXA Scan 08/25/2016 HEPATIC FUNCTION PANEL 11/26/2022 CBC (INCLUDES DIFF/PLT) 11/26/2022 LAMOTRIGINE 11/26/2022 Brivaracetam (Briviact) 11/26/2022 Insurance Providers Payer Name Payer Address Payer Phone Subscriber Number Group Number Insured Name Patient Relationship to Insured Coverage Start Date Coverage End Date [facility] [address] [facility] [place] [id number] TobyTashia riojas Self - patient is the insured MEDICAL (GENERAL) HISTORY Medical History History ICD Code Intractable Partial Epilepsy. Depression. L4-5 ruptured disc Surgical History Surgery Date(Month/Year) Tubal ligation 2010 [place] Unlisted Procedure Hand/Fingers- tend on reconnected 2003 Total hysterectomy 05/29/2022 Hospitalization History Reason Date(Month/Year) Total hysterectomy 05/29/2022
--- OUTSIDE RECORDS SUMMARY | 2023-05-12 09:32 | XMS_ITS | Clinical Summary ---
Author Name Unknown Organization [facility] Address [place], [place] [address] Care Team Providers Care Supervisor Inventory Merchandising Name Role Phone Unavailable Primary Care Provider Unavailabl e Allergies Active Allergy Reactions Criticality Noted Date Comments Penicillins *Unknown - Childhood Rxn 01/20/2007 Medications Medication Sig Dispensed Refills Start Date End Date Status LORazepam (ATIVAN) 1 mg tablet Take 1 Tablet by mouth. As needed for seizures or aura - Dr. Herrmann 0 08/13/2021 Active triamcinolone (ARISTOCORT) 0.5 % ointmentIndications: Dermatitis Apply topically to affected area(s) two times daily. Use for up to 2 weeks. Take a week off and repeat. 30 g 1 03/31/2022 Active lamoTRIgine (LAMICTAL) 100 mg tabletIndications:Lo calization-related (focal) (partial) symptomatic epilepsy and epileptic syndromes with complex partial seizures, intractable, without status epilepticus (HC) Take 300 mg in AM, 300 mg at noon, 300 mg in the PM, and 150 mg before bedtime 120 Tablet 0 05/26/2022 Active brivaracetam (BRIVIACT) 100 mg tablet Take 100 mg by mouth two times daily. Take with 50 mg tablet (total 150 mg) twice per day. Do not crush or chew. 0 Active brivaracetam (BRIVIACT) 50 mg tablet Take 50 mg by mouth two times daily. Take with 100 mg tablet (total 150 mg) twice per day. Do not crush or chew. 0 Active citalopram (CELEXA) 20 mg tabletIndications:An xious depression Take 1 Tablet (20 mg) by mouth once daily. 90 Tablet 3 01/20/2023 Active Active Problems Problem Noted Date Diagnosed Date Complex partial seizure disorder 03/05/2010 Overview: Followed by Dr. Bruno at [facility]. 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 01/20/2007 03/05/20 10 Encounters Date Type Department Care Team Description 04/13/2023 Medical Messaging [facility] [address] [place] [address] Jose Sosa MD Neurology Referral 03/16/2023 Refill [facility] [address] [place] [address] Jose Sosa MD Refill Request (Citalopram) from Last 3 Months Immunizations Name Administration Dates Next Due COVID-19 vaccine (Moderna 100mcg/0.5mL) PF, MDV 02/28/2021,08/15/2020,07/20/2020 Influenza Virus, Unspecified 01/17/2016 Influenza, IIV3 (Age 6-35 mos) 01/15/2009 Influenza, IIV3 (Age >=3 years) 12/22/19 14,02/01/2013,01/27/2012,2010,01/08/2010,03/30/2007,03/07/2005,1 05/08/2002 Influenza, IIV4 01/20/2023, 2,03/16/2021,2019,03/06/2019 Influenza, IIV4 (=>6mos) MDV 01/26/2018 Influenza,CCIIV4 PRESERV FREE 05/25/2017 Td (Age >=7 Years) 02/14/2004 Tdap 10/27/2019 Zoster (Shingrix-RZV, recombinant) 01/20/2023 Family History Medical History Relation Name Comments Other Father epileptic Heart Disease Mother at ag e 39; congenital heart disease, hypertrophic cardiomyopathy Relation Name Status Comments Father Mother Social History Tobacco Use Types Packs/Day Years Used Date Smoking Tobacco: Never Passive Smoke Exposure: Never Smokeless Tobacco: Never Tobacco Cessation:Counseling Given: Yes Alcohol Use Standard Drinks/Week Comments Yes 2 (1 standard drink = 0.6 oz pur e alcohol) PHQ-2 Answer Date Recorded PHQ-2 TOTAL SCORE 0 01/20/2023 Social Connections Answer Date Recorded Frequency of Communication with Friends and Fami ly Not on file 04/08/2023 Financial Resource Strain Answer Date R ecorded Difficulty of Paying Living Expenses 3 03/31/2022 Difficulty of Paying Living Expenses Not on file 03/31/2022 Food Insecurity Answer Date Recorded Worried About Running Out of Food in the Last Ye ar 1 03/31/2022 Transportation Needs Answer Date Record ed Lack of Transportation (Medical) 1 03/31/2022 Housing Stability Answer Date Recorded Unable to Pay for Housing in the Last Year 1 03/31/2022 Sex and Gender Information Value Date Recorded Sex Assigned at Female 10/25/2019 2:50 PM CDT Gender Identity Female 10/25/2019 2:50 PM CDT Sexual Orientation Straight 10/25/2019 2: 50 PM CDT Obstetrics History Para Term AB IAB SAB Ectopic Multiple Livin g Live Births 1 1 1 1 Date Outcome GA Total Labor Labor/2nd/3rd Weight Sex Delivery Anes PTL Sara A1 A5 Name Cl in Term Last Filed Vital Signs Vital Sign Reading Time Taken Comments Blood Pressure 107/76 01/20/2023 10:17 AM CDT Pulse 73 01/20/2023 10:17 AM CDT Temperature 36.8 ??C (98.3 ??F) 04/28/2022 2:11 PM CS T Respiratory Rate 16 11/07/2013 12:13 PM CDT Oxygen Saturation 99% 01/20/2023 10:17 AM CDT Inhaled Oxygen Concentration - - Weight 80.6 kg (177 lb 9.6 oz) 01/20/2023 10:08 AM CDT Height 167.6 cm (5' 5.98) 05/26/2022 2:14 PM CS T Body Mass Index 28.68 05/26/2022 2:14 PM 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 Plan of Treatment Health Maintenance Due Date Last Done Comments HIV for age 15-65 09/04/1987 Hepatitis C screening for age 18-79 1990 Colonoscopy through age 75 2017 COVID-19 vaccine series (2022- season) 2022 01/24/2022, 02/28/2021, 08/15/2020, Additional history exists Zoster (shingles) series for age 50+ (2 of 2) 03/17/2023 01/20/2023 Mammogram for age 45-75 04/02/2023 04/02/20 22, 03/27/2022, 11/18/2019 BMI (ht and wt on same day) for age 18+ 05/26/2023 05/26/2022, 04/28/2022, 03/31/2022, Additional history exists Depression screening for age 12+ 01/21/2024 01/20/2023, 08/21/2022, 03/31/2022, Additional history exists Lipids for age 45-75 11/17/2024 11/18/2019, 05/16/19 11 Pap test for age 21-65 04/16/2025 , 04/16/2022, 11/18/2019, Additional history exists Tetanus booster 10/26/2029 10/27/2019, 02/14/2004 Tdap Completed 10/27/2019 Influenza for age 50-64 Completed 01/21/20 23, 01/07/2022, 03/16/2021, Additional history exists Pneumococcal series for age 6-64 Aged Out No longer eligible based on patient's age to complete this topic
[2023-05-12] MEDS: 0.9 % SODIUM CHLORIDE 1000 ml 1,000 ML IV (09:42)
[2023-05-12 09:43] LABS: Eosinophils Percent Auto 0.5 % (0.0-7.0); Hematocrit 43.5 % (33.0-51.0); Hemoglobin* 14.3 gm/dL (12.0-16.0); Lymphocytes Percent Auto 7.7 % (20-44); Mean Corpuscular HGB Conc 33 gm/dL (32-36); Mean Corpuscular Hemoglobin 30 pg (26-34); Mean Corpuscular Volume 92 fL (80-100); Monocytes Percent Auto 7.3 % (0.0-11.0); Neutrophils Percent Auto 84.5 % (42.0-72.0); Platelet Count* 217 K/uL (140-440); RDW Coefficient of Variation % 12.6 % (11.5-15.5); Red Blood Count 4.74 m/uL (4.00-5.20); White Blood Count* 4.41 K/uL (4.50-11.00)
--- NOTE | 2023-05-12 09:45 | ED.NURSE ---
MD notified that patient is having a hard time finding her words. She can answer yes and no but unable to come up with more than a few words.
[2023-05-12 09:46] LABS: Lactate* 0.8 mmol/L (0.5-1.9)
[2023-05-12 09:47] LABS: Slide Review Reflex No
[2023-05-12 09:50] LABS: Troponin, Point-of-Care* 0.01 ng/ml (0.01-0.04)
[2023-05-12 10:03] LABS: Albumin* 4.5 g/dL (3.3-5.0); Chloride* 104 mmol/L (96-114); Sodium* 137 mmol/L (135-149)
[2023-05-12 10:04] LABS: Potassium* 4.8 mmol/L (3.6-5.1)
[2023-05-12 10:06] LABS: Alanine Aminotransferase* 23 U/L (4-35); Alkaline Phosphatase* 89 U/L (40-150); Anion Gap 6 mEq/L (7-15); Aspartate Amino Transferase* 31 U/L (12-35); Bilirubin Total* 0.5 mg/dL (0.1-1.5); Blood Urea Nitrogen* 11 mg/dL (7-30); Carbon Dioxide* 27 mmol/L (20-32); Creatinine* 0.7 mg/dL (0.5-1.5); Estimated Glomerular Filt Rate 105 ml/min; Glucose* 118 mg/dL (60-115); Total Protein* 7.7 g/dL (6.0-8.3)
[2023-05-12 10:07] LABS: Magnesium* 1.9 mg/dL (1.5-2.6)
[2023-05-12 10:19] LABS: Appearance Urine Slightly Cloudy (Clear); Bilirubin Urine Negative (Negative); Blood Urine Negative (Negative); Color Urine Yellow (Yellow); Glucose Urine Negative (Negative); Ketones Urine Negative (Negative); Leukocyte Esterase Urine Negative (Negative); Nitrite Urine Negative (Negative); Protein Urine Trace (Negative); Specific Gravity Urine 1.015 (1.000-1.030); Urobilinogen Urine 0.2 (0.2-1.0); pH Urine 8.5 (5.0-8.5)
--- NOTE | 2023-05-12 10:19 | CRLHL7_ITS ---
For Patients: As a result of the Century Cures Act, medical imaging exams and procedure reports are released immediately into your electronic medical record. You may view this report before your referring provider. If you have questions, please contact your health care provider. CT ANGIOGRAM NECK DATE: 05/12/2023 CLINICAL HISTORY: Patient with aphasia. TECHNIQUE: Standard helical CT image acquisition of the neck up to the skull base after bolus intravenous contrast enhancement. 2D and 3D MIP images for post-processing were performed and interpreted on an independent workstation and 3D images were permanently archived. COMPARISON: CT same day. FINDINGS: The origins of the great vessels from the aortic arch are patent. The origin of the right vertebral artery is patent. The origin of the left vertebral artery is patent. The common carotid arteries are patent. There is no stenosis at the origin of the right internal carotid artery. There is no stenosis at the origin of the left internal carotid artery. The rest of the cervical segments of the internal carotid arteries are patent up to the skull base. The ;eft vertebral artery is dominant. The cervical segments of the vertebral arteries are patent up to the skull base. The visualized lung apices are unremarkable. The thyroid gland demonstrates a 2.8cm heterogeneous lesion in its right lobe. The soft tissues of the neck are unremarkable. There are degenerative changes in the cervical spine. IMPRESSION: 1. Patent cervical vasculature. 2. 2.8cm heterogeneous right thyroid lesion. Further evaluation with ultrasound is recommended. Please note that all CT scans at this facility use dose modulation, iterative reconstruction, and/or weight-based dosing when appropriate to reduce radiation dose to as low as reasonably achievable. Dictated by: Kaitlynn Samano MD @ 05/12/2023 11:12:45 (Electronically Signed)
--- NOTE | 2023-05-12 10:19 | CRLHL7_ITS ---
For Patients: As a result of the Century Cures Act, medical imaging exams and procedure reports are released immediately into your electronic medical record. You may view this report before your referring provider. If you have questions, please contact your health care provider. CT ANGIOGRAM HEAD DATE: 05/12/2023 CLINICAL HISTORY: Patient with aphasia. TECHNIQUE: Standard helical CT image acquisition through the intracranial circulation following intravenous administration of contrast material with bolus tracking. 2D and 3D MIP images for post-processing were performed and interpreted on an independent workstation and 3D images were permanently archived. COMPARISON: CT same day. FINDINGS: There is no proximal intracranial large vessel occlusion. There is no intracranial aneurysm. The right internal carotid artery is normal. The right middle cerebral artery and its branches are normal. The right anterior cerebral artery and its branches are normal. The left internal carotid artery is normal. The left middle cerebral artery and its branches are normal. The left anterior cerebral artery and its branches are normal. The anterior communicating artery is well visualized and appears normal, demonstrating a fenestration. The right vertebral artery and PICA are normal. The left vertebral artery and PICA are normal. The left vertebral artery is dominant. The basilar artery is patent and appears normal. The right posterior cerebral artery is normal. The left posterior cerebral artery is normal. The visualized venous structures are patent. IMPRESSION: Patent proximal intracranial vasculature. Please note that all CT scans at this facility use dose modulation, iterative reconstruction, and/or weight-based dosing when appropriate to reduce radiation dose to as low as reasonably achievable. Dictated by: Kaitlynn Samano MD @ 05/12/2023 11:14:35 (Electronically Signed)
--- NOTE | 2023-05-12 10:19 | CRLHL7_ITS ---
For Patients: As a result of the Century Cures Act, medical imaging exams and procedure reports are released immediately into your electronic medical record. You may view this report before your referring provider. If you have questions, please contact your health care provider. CT HEAD DATE: 05/12/2023 CLINICAL HISTORY: Patient with aphasia. TECHNIQUE: Standard CT scanning of the head was performed. COMPARISON: None. FINDINGS: There is no intracranial hemorrhage. There is no territorial infarction. There are mild microangiopathic changes. There is diffuse parenchymal volume loss. There is no mass effect or midline shift. The calvarium is unremarkable. The orbits are unremarkable. The paranasal sinuses are unremarkable. The mastoid air cells are unremarkable. The soft tissues are unremarkable. IMPRESSION: 1. No intracranial hemorrhage or territorial infarction. 2. Mild microangiopathic changes and diffuse parenchymal volume loss. Please note that all CT scans at this facility use dose modulation, iterative reconstruction, and/or weight-based dosing when appropriate to reduce radiation dose to as low as reasonably achievable. Dictated by: Kaitlynn Samano MD @ 05/12/2023 11:01:21 (Electronically Signed)
[2023-05-12 10:27] LABS: RBC Urine 0-2 (0-2); Squamous Epithelial Cell Urine Moderate (None-Few); WBC Urine 0-2 (0-5)
--- NOTE | 2023-05-12 11:11 | PC.NURSE ---
requested patient to take her own Brivaracetam 100mg and to increase her daily dose to 200mg BID. Patient took 100mg of Brivaracetam from her home med supply per Dr. Nguyen request.
--- NOTE | 2023-05-12 11:12 | CRLHL7_ITS ---
For Patients: As a result of the Century Cures Act, medical imaging exams and procedure reports are released immediately into your electronic medical record. You may view this report before your referring provider. If you have questions, please contact your health care provider. INDICATION: Aphasia. Seizure. TECHNIQUE: Multiplanar multisequence noncontrast MR images of the brain. COMPARISON: CT brain 05/12/2023. FINDINGS: Prominence of the ventricles and sulci compatible with minimal diffuse cerebral volume loss. No mass effect or midline shift. Few punctate FLAIR hyperintensities in the supratentorial white matter, nonspecific. No intracranial hemorrhage or pathologic extra-axial fluid collection. No diffusion restriction to suggest acute infarction. The major arterial flow voids of the skullbase are preserved. The globes are symmetric. The paranasal sinuses are well aerated. The mastoid air cells are clear. IMPRESSION: 1. No acute infarction, mass effect, or intracranial hemorrhage. 2. Few punctate FLAIR hyperintensities in the supratentorial white matter are nonspecific, though typical for sequelae of minimal chronic microvascular ischemic changes or migraine headaches. Dictated by Varun Richardson MD @ 05/12/2023 12:38:21 PM (Electronically Signed)
[2023-05-12] MEDS: LORazepam 1 MG TABLET PO (11:21)
--- NOTE | 2023-05-12 11:22 | PC.NURSE ---
Patient due for her midday lamotrigine- 4 tabs given per MD recommendation.
[2023-05-14 02:57] LABS: Lamotrigine 15.5 ug/mL (3.0-15.0)
--- NOTE | 2023-05-14 10:30 | ED.NURSE ---
Spoke with [facility] regarding a prescribing question. 30 day supply of Briviact was authorized instead of 15 as was originally authorized.
== END 2023-05-12 13:17 | disposition home or self-care (01) ==
PROVIDERS: Emergency Provider Student in an Organized Health Care Education/Training Program; PCP Internal Medicine
DX: G40.209 Localization-related (focal) (partial) symptomatic epilepsy and epileptic syndromes with complex partial seizures, not intractable, without status epilepticus (principal); D34 Benign neoplasm of thyroid gland
CPT/HCPCS: 36415; 70450; 70496; 70498; 70551; 80053; 80175; 81003; 81015; 83605; 83735; 84484; 85025; 93005; 99282; 99285; A9270; J7030; Q9967

== ENCOUNTER 2023-07-07 14:50 | Outpatient (CLI) | payer BC, SELFPAY ==
--- NOTE | 2023-07-07 15:00 | MM_ITS ---
Patient: CLAUDIA CARROLL Facility:?[facility] Patient ID:?[id number] Site Patient ID:?[id number]. Site :?[id number] Study:?XRay-Breast Bilateral 3D W/CAD-07/07/2023 2:35:18 PM Ordering Physician:Macy Higgins Final Report: BILATERAL SCREENING MAMMOGRAM WITH COMPUTER-AIDED DETECTION AND TOMOSYNTHESIS TECHNIQUE: CC and MLO views were obtained. These mammographic images have been obtained using full-field digital technique. These mammographic images were interpreted with the benefit of computer-aided detection. Breast Tomosynthesis was used in this interpretation. COMPARISON FILM: 03/27/22, 10/29/19. FINDINGS: The breasts are heterogeneously dense, which may obscure small masses. IMPRESSION: There is no radiographic evidence for malignancy. ASSESSMENT: BI-RADS Category 2: Benign RECOMMENDATION: Routine screening mammogram in 1 year. A lay language report of this examination will be provided to the patient. Dionisio Storm M.D. Diagnostic Radiologist [email or web address] DSM/sp R& Transcribed: 6:05 p.m. SP/Dictated by: Dionisio Storm MD @ 07/17/2023 8:39:00 AM Signed by:?Dionisio Storm MD @07/17/2023 8:19:19 PM (Electronic Signature)
== END 2023-07-07 14:51 | disposition home or self-care (01) ==
LOC: MAMMO 14:50
PROVIDERS: PCP Internal Medicine; Visit Provider Internal Medicine
DX: Z12.31 Encounter for screening mammogram for malignant neoplasm of breast (principal); R92.2 Inconclusive mammogram
CPT/HCPCS: 77063; 77067

== ENCOUNTER 2023-08-17 22:46 | Outpatient (REF) | payer BC, SELFPAY ==
--- OUTSIDE RECORDS SUMMARY | 2023-08-17 22:49 | XMS_ITS | Clinical Summary ---
Author Name Unknown Organization [facility] Address [address] [place] [address] Care Team Providers Care Compilation Clerk Name Role Phone Unavailable Primary Care Provider Unavailabl e Source Comments Patient records contain information from all sites at [facility]. For routine questions regarding patient records, call [phone] during business hours, M-F 8:00 AM - 5:00 PM Central Time. Record requests for emergency care only can be directed to [phone] at any time.[facility] Allergies Active Allergy Reactions Criticality Noted Date Comments Penicillins Other (see comments) 1970 Happened as unsure of reaction Valproic Acid Rash 06/07/2023 Medications Medication Sig Dispensed Refills Start Date End Date Status citalopram (CeleXA) 20 mg tablet Take 20 mg by mouth daily. Active Briviact 100 mg tablet tabletIndications: Epilepsy Seizure Intractable Without Status Epilepticus (HCC) TAKE TWO TABLETS (200MG) BY MOUTH TWICE A DAY 120 tablet 2 06/17/2023 Active LORazepam (ATIVAN) 1 mg tabletIndications: Epilepsy Seizure Intractable Without Status Epilepticus (HCC) Take 1 tablet (1 mg total) by mouth as needed (BREAKTHROUGH SEIZURE GTC >5 minutes or focal seizure >10 minutes). 30 tablet 1 06/17/2023 Active perampaneL (FYCOMPA) 8 mg tabletIndications: Epilepsy Seizure Intractable Without Status Epilepticus (HCC) Take 1 tablet (8 mg total) by mouth at bedtime. 1 (one) tablet At Bedtime. Begin after completing 2 mg tablet prescription. 90 tablet 07/16/2023 01/12/2024 Active lamoTRIgine ER (LaMICtaL XR) 200 mg 24 hr tabletIndications: Epilepsy Seizure Intractable Without Status Epilepticus (HCC) Take 2 tablets (400 mg total) by mouth 2 (two) times a day. 120 tablet 1 07/16/2023 07/15/2024 Active Briviact 50 mg tabletIndications: Epilepsy Seizure Intractable Without Status Epilepticus (HCC) Take 1 tablet (50 mg total) by mouth 2 (two) times a day. 60 tablet 3 07/17/2023 Active Active Problems Problem Noted Date Diagnosed Date Epilepsy Seizure Intractable Without Status Epil epticus 06/05/2023 Adjustment Disorder With Anxious Mood 06/05/2023 Rhinitis Allergic 06/05/2023 Encounters Date Type Department Care Team Description 07/17/2023 Orders Only Department of Neurology in [place], [place] [address] [place] [phone] Megan Mcgrath M.B.B.S. 07/17/2023 Orders Only Department of Neurology in [place], [place] [address] [place] [phone] Megan Mcgrath M.B.B.S. Epilepsy Seizure Intractable Without Status Epilepticus (HCC) (Primary Dx) 07/17/2023 Clinical Communication Department of Neurology in [place], [place] [address] [place] [phone] Megan Mcgrath M.B.B.S. New Med Request (Tanwir) 07/16/2023 4:00 PM CDT Telemedicine Department of Neurology in [place], [place] [address] [place] [phone] Megan Mcgrath M.B.B.S. Epilepsy Seizure Intractable Without Status Epilepticus (HCC) (Primary Dx) 07/03/2023 Documentation Department of Neurology in [place], [place] [address] [place] [phone] Megan Mcgrath M.B.B.S. 06/25/2023 Documentation Department of Neurology in [place], [place] [address] [place] [phone] Dipika Rebollar M.D. 06/16/2023 Refill Department of Neurology in [place], [place] [address] [place] [phone] Megan Mcgrath M.B.B.S. Med Refill 06/05/2023 7:29 AM CROP PRODUCTION ADVISOR - 06/08/2023 12:39 PM CROP PRODUCTION ADVISOR Hospital Encounter [facility], [facility], Second floor [address] [place] [phone] Ab Calzada M.D. So, Elson, M.D. Epilepsy Seizure Intractable Without Status Epilepticus (HCC) (Primary Dx); Seizure Partial Complex (HCC) Discharge Disposition: Home or Self Care 06/04/2023 9:48 AM CROP PRODUCTION ADVISOR - 06/04/2023 11:59 PM CROP PRODUCTION ADVISOR Hospital Encounter Department of Radiology, [facility] in [place], [place] [address] [place] [phone] Megan Mcgrath M.B.B.S. Seizure Partial Complex (HCC) Discharge Disposition: Home or Self Care 06/03/2023 11:56 AM CROP PRODUCTION ADVISOR - 06/03/2023 11:59 PM CROP PRODUCTION ADVISOR Hospital Encounter Department of Laboratory Medicine and Pathology, [facility] in [place], [place] [address] [place] [phone] Megan Mcgrath M.B.B.S. Seizure Partial Complex (HCC) Discharge Disposition: Home or Self Care 06/03/2023 10:00 AM CROP PRODUCTION ADVISOR Virtual Visit Department of Neurology in [place], [place] [address] [place] [phone] Megan Mcgrath M.B.B.SAdy Epilepsy Seizure Generalized Convulsive (HCC) (Primary Dx); Seizure Partial Complex (HCC) 06/03/2023 Documentation Department of Neurology in [place], [place] [address] [place] [phone] Jaswant Verduzco M.D. 06/03/2023 Virtual Visit Department of Neurology in [place], [place] [address] [place] [phone] Jaswant Verduzco M.D. Seizure Partial Complex (HCC) (Primary Dx) 06/02/2023 1:31 PM CROP PRODUCTION ADVISOR - 06/02/2023 11:59 PM CROP PRODUCTION ADVISOR Hospital Encounter Department of Neurology in [place], [place] [address] [place] [phone] Megan Mcgrath M.B.BAdyS. Seizure Partial Complex (HCC) Discharge Disposition: Home or Self Care 05/27/2023 11:30 AM CROP PRODUCTION ADVISOR Clinical Communication Virtual Review in [place], [place] [address] [place] [phone] Pre-visit Intake from Last 3 Months Family History Medical History Relation Name Comments Seizures Father Levy Stewart Lung cancer Maternal Grandfather Christiano Abreu Genetic disease Maternal Grandmother Destiney Bustamante i Hypertrophic cardiomyopathy Genetic disease Mother Kristi Stewart Hypertr ophic cardiomyopathy Genetic disease Mother's Brother Christiano Abreu J r. Hypertrophic cardiomyopathy Genetic disease Mother's Sister Concepcion Melgar Hypertr ophic cardiomyopathy Relation Name Status Comments Father Levy Stewart Maternal Grandfather Christiano Abreu Maternal Grandmother Destiney Abreu Mother Kristi Stewart Mother's Brother Christiano Abreu Jr. Mother's Sister Concepcion Melgar Social History Tobacco Use Types Packs/Day Years Used Date Smoking Tobacco: Never Smokeless Tobacco: Never Alcohol Use Standard Drinks/Week Comments Not Currently 3 (1 standard drink = 0.6 oz pur e alcohol) Before quitting [facility] Utilities Answer Date Recorded In the past 12 months has [facility], gas, oil, or water Mobile Location, IP threatened to shut off services in your home? No 06/05/2023 Humiliation, Afraid, Rape, and Kick questionnair e Answer Date Recorded Within the last year, have y ou been afraid of your partner or ex-partner? No 06/05/2023 Within the last year, have y ou been humiliated or emotionally abused in other ways by your partner or ex-partner? No Within the last year, have y ou been kicked, hit, slapped, or otherwise physically hurt by your partner or ex-partner? No 06/05/2023 Within the last year, have y ou been raped or forced to have any kind of sexual activity by your partner or ex-partner? No 06/05/2023 Exercise Vital Sign Answer Date Recorde d On average, how many days pe r week do you engage in moderate to strenuous exercise (like a brisk walk)? 5 days 05/31/2023 On average, how many minutes do you engage in exercise at this level? 10 min 05/31/2023 Hunger Vital Sign Answer Date Recorded Within the past 12 months, y ou worried that your food would run out before you got the money to buy more. Never true 06/05/19 24 Within the past 12 months, t he food you bought just didn't last and you didn't have money to get more. Never true 06/05/2023 PRAPARE - Transportation Answer Date Re corded In the past 12 months, has l ack of transportation kept you from medical appointments or from getting medications? No 12/2023 In the past 12 months, has l ack of transportation kept you from meetings, work, or from getting things needed for daily living? No 06/05/2023 Nutrition Answer Date Recorded Nutrition: EVOO Fat Source Unknown 05/31 On average, how many serving s of fruits and vegetables do you eat per day (serving size is equal to 1 cup or approximately the size of a tennis ball)? 0-2 05/31/2023 Dental Answer Date Recorded Dental: Regular Dentist Yes 05/31/19 Employment Answer Date Recorded Employment status Employed and actively working without restrictions 05/31/2023 Housing Stability Answer Date Recorded What is your living situation today? I have a [facility] place to live 06/05/2023 Sex and Gender Information Value Date Recorded Sex Assigned at Female 05/24/2023 12:13 PM CROP PRODUCTION ADVISOR Gender Identity Female 05/24/2023 12:13 PM CROP PRODUCTION ADVISOR Sexual Orientation Straight 05/24/2023 12 :13 PM CROP PRODUCTION ADVISOR Last Filed Vital Signs Vital Sign Reading Time Taken Comments Blood Pressure 114/77 06/08/2023 12:10 PM CROP PRODUCTION ADVISOR Pulse 72 06/08/2023 12:10 PM CROP PRODUCTION ADVISOR Temperature 37 ??C (98.6 ??F) 06/08/2023 12: 10 PM CROP PRODUCTION ADVISOR Respiratory Rate 16 06/08/2023 12:1 0 PM CROP PRODUCTION ADVISOR Oxygen Saturation 98% 06/08/2023 12: 10 PM CROP PRODUCTION ADVISOR Inhaled Oxygen Concentration - - Weight 80.7 kg (177 lb 14.6 oz) 06/05/2023 7:45 AM CROP PRODUCTION ADVISOR Height 167.6 cm (5' 6) 06/05/2023 7:45 AM CROP PRODUCTION ADVISOR Body Mass Index 28.72 06/05/2023 7:45 AM CROP PRODUCTION ADVISOR Plan of Treatment Upcoming Encounters Date Type Department Care Team (Late st Contact Info) Description 09/02/2023 1:00 PM CDT Telemedicine Department of Neurology in [place], [place] [address] [place] [phone] Megan Mcgrath M.B.B.S. [address] [place] [phone] 11/03/2023 3:00 PM CDT Clinical Support Department of Neurology in [place], [place] [address] [place] [address] Megan Mcgrath M.B.B.S. [address] [place] [phone] Health Maintenance Due Date Last Done Comments CT Colonography 1972 Cologuard 1970 Colonoscopy 1970 Colorectal Cancer Screening 1972 FIT 1972 HIV Screening 1972 Hepatitis C Screening 1972 Hepatitis B Vaccines (1 of 3 - 19+ 3-dose series) 09/04/1991 Mammogram 11/17/2020 11/18/2019 Zoster Vaccines (2 of 2) 03/17/2023 01/20/2023 Depression Screening (Annual PHQ-2) 04/27/2023 Lipid (Cholesterol) Screening 11/17/2024 11/18/2019 Fasting Glucose for Diabetes Screening 06/05/2026 06/05/2023, 07/03/2020, 11/18/2019, Additional history exists DTaP,Tdap,and Td Vaccines (2 - Td or Tdap) 10/26/2029 10/27/2019 Influenza Vaccine Completed 01/20/2023, , 03/16/2021, Additional history exists COVID-19 Vaccine Completed 02/23/2023, , 02/28/2021, Additional history exists Pneumococcal vaccine (0-64 years) Aged Out No longer eligible based on patient's age to complete this topic Procedures Procedure Name Priority Date/Time Associated Diagnosis Comments EPILEPSY MONITORING UNIT (EMU) ADMISSION Routine 06/08/2023 10:37 AM CROP PRODUCTION ADVISOR Seizure Partial Complex (HCC) VIDEO EEG MONITORING Routine 06/08/2023 10:33 AM CROP PRODUCTION ADVISOR VIDEO EEG MONITORING Routine 06/07/2023 5:00 AM CROP PRODUCTION ADVISOR VIDEO EEG MONITORING Routine 06/06/2023 5:00 AM CROP PRODUCTION ADVISOR LAMOTRIGINE LEVEL, S Timed 06/05/2023 11:05 AM CROP PRODUCTION ADVISOR COMPREHENSIVE METABOLIC PANEL, S/P Timed 06/05/2023 11:05 AM CROP PRODUCTION ADVISOR CBC WITH DIFFERENTIAL, B Timed 06/05/2023 11:04 AM CROP PRODUCTION ADVISOR ECG Routine 06/05/2023 8:39 AM CROP PRODUCTION ADVISOR MR BRAIN WITHOUT AND WITH IV CONTRAST RAD - Routine (most inpatients and all outpatients) 06/04/2023 11:27 AM CROP PRODUCTION ADVISOR Seizure Partial Complex (HCC) LAMOTRIGINE LEVEL, S Routine 06/03/2023 12:02 PM CROP PRODUCTION ADVISOR Seizure Partial Complex (HCC) EEG ROUTINE - AWAKE AND SLEEP Routine 06/02/2023 4:07 PM CROP PRODUCTION ADVISOR Seizure Partial Complex (HCC) EXTI LIPID PANEL W REFLEX MEASURED LDL Routine 11/18/2019 11:53 AM CDT BI BREAST SCREENING BILATERAL WITH TOMOSYNTHESIS RAD - Routine (most inpatients and all outpatients) 11/18/2019 9:56 AM CDT from Last 3 Months or Most Recently Relevant to Health Maintenance Results * Epilepsy monitoring unit (EMU) admission (06/08/2023 10:37 AM CROP PRODUCTION ADVISOR) Narrative MMODAL - 06/11/2023 5:22 PM CROP PRODUCTION ADVISOR Ready for staff review EEG MONITORING UNIT FINAL EEG REPORT INTERPRETATION AND CLINICAL CORRELATE This computer-assisted prolonged video EEG recording demonstrated Generalized potentially epileptiform discharges which is most consistent with the presence of a generalized seizure disorder. An event of dyscognitive feeling with no definite ictal EEG correlate but with increasing frequency of interictal discharges. Two generalized clonic seizures occurred, each with a prolonged pre-ictal phase characterized by symptoms of a metallic taste, finger and facial tingling, and dyscognitive symptoms. The ictal phase of the first seizure was marked by a clinical accompaniment of a right head turn and right gaze deviation, followed by right hemibody Brenton's paralysis in the post-ictal phase. Conversely, the second seizure exhibited a left head turn and gaze deviation, with subsequent left hemibody Brenton's paralysis in the post-ictal phase. CLASSIFICATION Dysrhythmia grade 3, Generalized polyspike and spike and wave discharges Asleep - Activation of generalized polyspike and spike and wave discharges EKG Channel. Report: Computer-assisted prolonged video EEG monitoring since the beginning of the recording showed the following. BACKGROUND: ??The awake recording revealed 9 - 10 Hz alpha rhythm over posterior head regions bilaterally. The sleep recording contained appropriate features of N2 and N3 sleep. DISCHARGES AND SEIZURES INTERICTAL DISCHARGES: In wakefulness and sleep, there were ??anteriorly predominant generalized atypical spike and slow wave discharges as well as generalized polyspike discharges. They slowly increased in frequency becoming abundant at around 17:00 and continuous at 00:30 on 06/07/2023 leading up to the seizure described below. CLINICAL EVENTS: ??During the monitoring session, the patient had the following clinical events: On 06/06/2023 ??07:30 The patient reported having difficulties with room service, she reports that this is part of her typical symptoms. There was no definite ictal EEG correlate, however there was increase in the frequency of generalized epileptiform discharges. ?? On 06/07/2023 at 06:38 patient mentioned feeling foggy this was during the period of increase of ??frequency of generalized fragments of discharges. On 06/07/2023 at 12:53 patient had mouth movement and right hand/index finger pointing movement reported during sleep. The EEG did not show accompaniment and was consistent with a drowsy pattern. Seizure #01 Date: 06/07/2023 EEG on time - 00:37:41 Clinical on time - :47:22 Duration - electrographic: :09:55, ??clinical: 01:14 Pre-ictal symptoms: at around 17:00, the patient complained of tingling and numbness ??in her fingers and face, as well as a metallic taste. In addition to this, she started to complain of feeling light headed and spacey. She was asked a number of questions testing her orientation which she answered appropriately. This was done at 16:44 and 20:27. Electrographically, the interictal discharges ramped up and started to occur in bursts of 40 - 75 seconds with normal intervening background of 10 - 20 seconds. As it neared the onset of the seizure, the inter burst interval reduced. The bursts often consisted of a mix of generalized polyspike discharges, generalized paroxysmal fast activity and rare solitary anteriorly predominant generalized atypical spike and wave discharges. EEG description - electrographically, there is a mixture of generalized polyspike discharges and paroxysmal fast activity, as the seizure neared its clinical onset, the electrographic activity was characterized by anteriorly predominant generalized atypical spike and slow wave discharge occurring at a frequency of 1 - 5 Hz with less of the generalized polyspike discharges and paroxysmal fast activity, at clinical onset, there were generalized atypical spike, polyspike and slow wave discharges initially occurring at 1 Hz at with the highest amplitude in the left frontal head region, the frequency increased to 3 - 5 Hz as it neared the convulsive phase where it was obscured by muscle activity. There was generalized post-ictal EEG attenuation following the slowing. Semiology - ??the patient is lying in bed facing her right side, at the onset of the seizure, she turns into the bed jerking with her face now in her pillow and making high pitched sounds, staffs comes in and turns her on her back, she is reported to be drooling with a right gaze deviation. Her left leg was initially flexed (right leg is not properly seen), and then there was flexion of her left arm at the elbow with her right arm extended as the seizure neared its end. Post-ictal symptoms - the patient was obtunded immediately after the seizure. However 74 seconds after offset she was able to squeeze with her left hand and wiggle her left foot but was on able to do same on the contralateral side. ECG - there was increase in the HR from 75 to 94 bpm at the onset of the seizure, but the rest of the EKG was obscured by muscle activity. Seizure #02 Date: 06/07/2023 EEG on time - unclear ?? Clinical on time - 03:09:15 Duration - electrographic - unclear, clinical 01:30 Pre-ictal - as the patient recovered from the prior seizure, the EEG was electrographically similar to the pre-ictal phase of the first seizure. She was initially able to read and follow commands, as she was re-tested again due to the worsening discharges, whilst she was oriented to location and name, she was not oriented to time. Near the onset of the clinical seizure, she started to cry saying she felt very confused. EEG description - ??electrographically, there is a mixture of generalized polyspike discharges and paroxysmal fast activity, as the seizure neared its clinical onset, the electrographic activity was characterized by anteriorly predominant generalized atypical spike and slow wave discharge occurring at a frequency of 1 - 5 Hz with less of the generalized polyspike discharges and paroxysmal fast activity, at clinical onset, there were generalized atypical spike, polyspike and slow wave discharges initially occurring at 2.5 - 3 Hz at with the highest amplitude in the right frontal head region, then it slowed to 1 - 2 Hz and picked up again to 3 - 4 Hz as it neared the convulsive phase where it was obscured by muscle activity. Semiology - [facility] she then has versive head turn to the left, clonic left head and facial jerking, left gaze deviation with intermittent vocalization. Staff safely positions her in bed, and she reportedly starts to drool. Arm positioning is difficult to tell as she is surrounded by staff. Post-ictal symptoms - the patient is obtunded after the seizure and 2 mg IV lorazepam is administered. 137 seconds after the seizure, she is able to follow command in her right hemibody and not her left hemibody. ECG - Heart rate slowly increased following her last seizure to 120 - 130 bpm and didn't reduce until seizure offset. The EKG was unremarkable except for ictal tachycardia. Dr. Verduzco reviewed this study with Dr. Gurrola and agrees with the interpretation. Megan Quintero NEUROLOGY ORDERABLE S MMODAL NA * Video EEG monitoring (06/08/2023 10:33 AM CROP PRODUCTION ADVISOR) Narrative MMODAL - 06/11/2023 5:20 PM CROP PRODUCTION ADVISOR Ready for staff review EEG MONITORING UNIT DAILY EEG REPORT Report: Computer-assisted prolonged video EEG monitoring since the beginning of the recording showed the following. BACKGROUND: ??The awake recording revealed 9 - 10 Hz alpha rhythm over posterior head regions bilaterally. The sleep recording contained appropriate features of N2 and N3 sleep. DISCHARGES AND SEIZURES INTERICTAL DISCHARGES: In wakefulness and sleep, there were ??anteriorly predominant generalized atypical spike and slow wave discharges as well as generalized polyspike discharges. At times fragments of these discharges become near continuous during drowsiness. CLINICAL EVENTS: ??During the monitoring session, the patient had the following clinical events: On 06/07/2023 at 06:38 patient mentioned feeling foggy this was during the period of increase of ??frequency of generalized fragments of discharges. On 06/07/2023 at 12:53 patient had mouth movement and right hand/index finger pointing movement reported during sleep. The EEG did not show accompaniment and was consistent with a drowsy pattern. INTERPRETATION AND CLINICAL CORRELATE This computer-assisted prolonged video EEG recording demonstrated Generalized potentially epileptiform discharges which is most consistent with the presence of a generalized seizure disorder. An event of dyscognitive feeling with no definite ictal EEG correlate but with increasing frequency of interictal discharges. An event of right hand movement was without EEG correlation. Dr. Verduzco reviewed this study with Dr. Gurrola and agrees with the interpretation. Kelley Javed P.A.-C. NEUROLOGY ORDER SANA Performing Organization Address City/[facility]/ZIP Co de Phone Number MMODAL NA * Video EEG monitoring (06/07/2023 5:00 AM CROP PRODUCTION ADVISOR) Narrative MMODAL - 06/08/2023 6:34 PM CROP PRODUCTION ADVISOR EEG MONITORING UNIT DAILY EEG REPORT Report: Computer-assisted prolonged video EEG monitoring since the beginning of the recording showed the following. BACKGROUND: ??The awake recording revealed 9 - 10 Hz alpha rhythm over posterior head regions bilaterally. The sleep recording contained appropriate features of N2 and N3 sleep. DISCHARGES AND SEIZURES INTERICTAL DISCHARGES: In wakefulness and sleep, there were ??anteriorly predominant generalized atypical spike and slow wave discharges as well as generalized polyspike discharges. They slowly increased in frequency becoming abundant at around 17:00 and continuous at 00:30 on 06/07/2023 leading up to the seizure described below. CLINICAL EVENTS: ??During the monitoring session, the patient had the following clinical events: Clinical event 07:30 on 06/06/2022 The patient reported having difficulties with room service, she reports that this is part of her typical symptoms. There was no definite ictal EEG correlate, however there was increase in the frequency of generalized epileptiform discharges. ?? Seizure #01 Date: 06/07/2023 EEG on time - 00:37:41 Clinical on time - :47:22 Duration - electrographic: :09:55, ??clinical: 01:14 Pre-ictal symptoms: at around 17:00, the patient complained of tingling and numbness ??in her fingers and face, as well as a metallic taste. In addition to this, she started to complain of feeling light headed and spacey. She was asked a number of questions testing her orientation which she answered appropriately. This was done at 16:44 and 20:27. Electrographically, the interictal discharges ramped up and started to occur in bursts of 40 - 75 seconds with normal intervening background of 10 - 20 seconds. As it neared the onset of the seizure, the inter burst interval reduced. The bursts often consisted of a mix of generalized polyspike discharges, generalized paroxysmal fast activity and rare solitary anteriorly predominant generalized atypical spike and wave discharges. EEG description - electrographically, there is a mixture of generalized polyspike discharges and paroxysmal fast activity, as the seizure neared its clinical onset, the electrographic activity was characterized by anteriorly predominant generalized atypical spike and slow wave discharge occurring at a frequency of 1 - 5 Hz with less of the generalized polyspike discharges and paroxysmal fast activity. ??At clinical onset, there were generalized atypical spike, polyspike and slow wave discharges initially occurring at 1 Hz at with the highest amplitude in the left frontal head region, the frequency increased to 3 - 5 Hz as it neared the convulsive phase where it was obscured by muscle activity. There was generalized post-ictal EEG attenuation following the slowing. Semiology - ??the patient is lying in bed facing her right side, at the onset of the seizure, she turns into the bed rightward, jerking with her face now in her pillow and making high pitched sounds. ??Staff comes in and turns her on her back, she is reported to be drooling with a right gaze deviation. Her left leg was initially flexed (right leg is not properly seen), and then there was flexion of her left arm at the elbow with her right arm extended as the seizure neared its end. Post-ictal symptoms - the patient was obtunded immediately after the seizure. However 74 seconds after offset she was able to squeeze with her left hand and wiggle her left foot but was unable to do same on the right side. ECG - there was increase in the HR from 75 to 94 bpm at the onset of the seizure, but the rest of the EKG was obscured by muscle activity. Seizure #02 Date: 06/07/2023 EEG on time - unclear ?? Clinical on time - 03:09:15 Duration - electrographic - unclear, clinical 01:30 Pre-ictal - as the patient recovered from the prior seizure, the EEG was electrographically similar to the pre-ictal phase of the first seizure. She was initially able to read and follow commands, as she was re-tested again due to the worsening discharges. ??While she was oriented to location and name, she was not oriented to time. Near the onset of the clinical seizure, she started to cry saying she felt very confused. EEG description - ??electrographically, there is a mixture of generalized polyspike discharges and paroxysmal fast activity, as the seizure neared its clinical onset, the electrographic activity was characterized by anteriorly predominant generalized atypical spike and slow wave discharge occurring at a frequency of 1 - 5 Hz with less of the generalized polyspike discharges and paroxysmal fast activity, at clinical onset, there were generalized atypical spike, polyspike and slow wave discharges initially occurring at 2.5 - 3 Hz at with the highest amplitude in the right frontal head region, then it slowed to 1 - 2 Hz and picked up again to 3 - 4 Hz as it neared the convulsive phase where it was obscured by muscle activity. Semiology - ??the patient is sitting in bed in the stirrup, she then has versive head turn to the left, clonic left head and facial jerking, left gaze deviation with intermittent vocalization. Staff safely positions her in bed, and she reportedly starts to drool. Arm positioning is difficult to tell as she is surrounded by staff. Post-ictal symptoms - the patient is obtunded after the seizure and 2 mg IV lorazepam is administered. 137 seconds after the seizure, she is able to more her fingers of the right hand but did not squeeze her left hand to command. ECG - Heart rate slowly increased following her last seizure to 120 - 130 bpm and didn't reduce until seizure offset. INTERPRETATION AND CLINICAL CORRELATE This computer-assisted prolonged video EEG recording demonstrated Generalized potentially epileptiform discharges which is most consistent with the presence of a generalized seizure disorder. An event of dyscognitive feeling with no definite ictal EEG correlate but with increasing frequency of interictal discharges. Two generalized clonic seizures occurred, each with a prolonged pre-ictal phase characterized by symptoms of a metallic taste, finger and facial tingling, and dyscognitive symptoms and manifested on EEG by increasingly continuous generalized spike and wave activity. The ictal phase of the first seizure was marked by a clinical accompaniment of a right head turn and right gaze deviation, followed by weakness on the right. Conversely, the second seizure exhibited a left head turn and gaze deviation, inability to squeeze her left hand to command. The EKG was unremarkable except for ictal tachycardia. Dr. Calzada reviewed the study with Dr. Haile and agree with the documented findings. Kelley Javed P.A.-C. NEUROLOGY ORDER SANA MMODAL NA * Video EEG monitoring (06/06/2023 5:00 AM CROP PRODUCTION ADVISOR) Narrative MMODAL - 06/06/2023 3:12 PM CROP PRODUCTION ADVISOR EEG MONITORING UNIT DAILY EEG REPORT Report: Computer-assisted prolonged video EEG monitoring since the beginning of the recording showed the following. BACKGROUND: ??The awake recording revealed 9 - 10 Hz alpha rhythm over posterior head regions bilaterally. The sleep recording contained appropriate features of N2 and N3 sleep. DISCHARGES AND SEIZURES INTERICTAL DISCHARGES: In wakefulness, there were occasional anteriorly predominant generalized atypical spike and wave discharges as well as rare generalized polyspike discharges. In sleep, there was increased activation. CLINICAL EVENTS: ??During the monitoring session, the patient had no events. INTERPRETATION AND CLINICAL CORRELATE This computer-assisted prolonged video EEG recording demonstrated generalized potentially epileptiform discharges which is most consistent with the presence of a generalized seizure disorder. ??No symptoms were reported during this portion of the recording. The EKG was unremarkable. Dr. Calzada reviewed the study with Dr. Haile and agree with the documented findings. Kelley Javed P.A.-C. NEUROLOGY ORDER SANA Performing Organization Address [facility] de Phone Number MMODAL NA * Lamotrigine Level (06/05/2023 11:05 AM CROP PRODUCTION ADVISOR) Only the most recent of2 resultswithin the time period is included. Lamotrigine, S 23.3 3.0 - 15.0 mcg/mL 06/06/2023 11:49 AM CROP PRODUCTION ADVISOR [facility] Comment: ----ADDITIONAL INFORMATION---- This test was developed and its performance characteristics determined by [facility] in a manner consistent with CLIA requirements. This test has not been cleared or approved by the U.S. Food and Drug Administration. Blood (Blood, Venous) 06/05/2023 11:05 AM CROP PRODUCTION ADVISOR 06/06/2023 7:32 AM CROP PRODUCTION ADVISOR Kelley Javed P.A.-C. LAB BLOOD NON A DD-ON Performing Organization Address [facility] Co de Phone Number [facility] [address] [place] [address] [facility] [address] [place] [address] [place] [address] * Comprehensive Metabolic Panel (06/05/2023 11:05 AM CROP PRODUCTION ADVISOR) Potassium, S 5.2 3.6 - 5.2 mmol/L 06/05/2023 1:24 PM CROP PRODUCTION ADVISOR DTL Sodium, S 140 135 - 145 mmol/L 06/05/2023 1:24 PM CROP PRODUCTION ADVISOR DTL Chloride, S 105 98 - 107 mmol/L 06/05/2023 1:24 PM CROP PRODUCTION ADVISOR DTL Bicarbonate, S 25 22 - 29 mmol/L 06/05/2023 1:24 PM CROP PRODUCTION ADVISOR DTL Anion Gap 10 7 - 15 06/05/2023 1:24 PM CROP PRODUCTION ADVISOR DTL BUN (Blood Urea Nitrogen), S 17 6 - 21 mg/dL 06/05/2023 1:24 PM CROP PRODUCTION ADVISOR DTL Creatinine 0.85 0.59 - 1.04 mg/dL 06/05/2023 1:24 PM CROP PRODUCTION ADVISOR DTL Estimated GFR (eGFR) 83 >=60 mL/min/BS A 06/05/2023 1:24 PM CROP PRODUCTION ADVISOR DTL Comment: Estimated GFR calculated using the 2020 CKD_EPI creatinine equation. Calcium, Total, S 9.7 8.6 - 10.0 mg/dL 06/05/2023 1:24 PM CROP PRODUCTION ADVISOR DTL Glucose, S 84 70 - 140 mg/dL 06/05/2023 1:24 PM CROP PRODUCTION ADVISOR DTL Protein, Total, S 6.9 6.3 - 7.9 g/dL 06/05/2023 1:24 PM CROP PRODUCTION ADVISOR DTL Albumin, S 4.4 3.5 - 5.0 g/dL 06/05/2023 1:24 PM CROP PRODUCTION ADVISOR DTL Aspartate Aminotransferase (AST), S 24 8 - 43 U/L 06/05/2023 1:24 PM CROP PRODUCTION ADVISOR DTL Alkaline Phosphatase, S 100 35 - 104 U/L 06/05/2023 1:24 PM CROP PRODUCTION ADVISOR DTL Alanine Aminotransferase (ALT), S 38 7 - 45 U/L 06/05/2023 1:24 PM CROP PRODUCTION ADVISOR DTL Bilirubin, Total, S 0.2 0.0 - 1.2 mg/dL 06/05/2023 1:24 PM CROP PRODUCTION ADVISOR DTL Blood (Blood, Venous) 06/05/2023 11:05 AM CROP PRODUCTION ADVISOR 06/05/2023 12:02 PM CROP PRODUCTION ADVISOR Kelley Javed P.A.-C. LAB BLOOD ADD-O N [facility] [address] [place] [address], [facility] DTL [facility] [address] [place] [address] * CBC with Differential, Blood (06/05/2023 11:04 AM CROP PRODUCTION ADVISOR) Hemoglobin 13.5 11.6 - 15.0 g/dL 06/05/2023 11:56 AM CROP PRODUCTION ADVISOR DTL Hematocrit 40.0 35.5 - 44.9 % 06/05/2023 11:56 AM CROP PRODUCTION ADVISOR DTL Erythrocytes 4.45 3.92 - 5.13 x10(12)/L 06/05/2023 11:56 AM CROP PRODUCTION ADVISOR DTL MCV 89.9 78.2 - 97.9 fL 06/05/2023 11:56 AM CROP PRODUCTION ADVISOR DTL RBC Distrib Width 12.2 12.2 - 16.1 % 06/05/2023 11:56 AM CROP PRODUCTION ADVISOR DTL Platelet Count 261 157 - 371 x10(9)/L 06/05/2023 11:56 AM CROP PRODUCTION ADVISOR DTL Leukocytes 4.3 3.4 - 9.6 x10(9)/L 06/05/2023 11:56 AM CROP PRODUCTION ADVISOR DTL Neutrophils 2.57 1.56 - 6.45 x10(9)/L 06/05/2023 11:56 AM CROP PRODUCTION ADVISOR [facility] Lymphocytes 1.29 0.95 - 3.07 x10(9)/L 06/05/2023 11:56 AM CROP PRODUCTION ADVISOR DTL Monocytes 0.36 0.26 - 0.81 x10(9)/L 06/05/2023 11:56 AM CROP PRODUCTION ADVISOR DTL Eosinophils 0.10 0.03 - 0.48 x10(9)/L 06/05/2023 11:56 AM CROP PRODUCTION ADVISOR DTL Basophils <0.03 0.01 - 0.08 x10(9)/L 06/05/2023 11:56 AM CROP PRODUCTION ADVISOR DTL Blood (Blood, Venous) 06/05/2023 11:04 AM CROP PRODUCTION ADVISOR 06/05/2023 11:49 AM CROP PRODUCTION ADVISOR Kelley Javed P.A.-C. LAB BLOOD ADD-O N [facility] [address] [place] [address], [facility] DTL [facility] [address] [place] [address] [facility] [address] [place] [address] * ECG 12 Lead (06/05/2023 8:39 AM CROP PRODUCTION ADVISOR) Ventricular Rate ECG/Min 75 BPM MUSE MS Interval 134 ms MUSE QRSD Interval 84 ms MUSE QT Interval 384 ms MUSE QTC Interval 428 ms MUSE P [place] 50 degrees MUSE R [place] 60 degrees MUSE T Wave [place] 35 degrees MUSE 06/05/2023 8:39 AM CROP PRODUCTION ADVISOR 06/05/2023 8:46 AM CROP PRODUCTION ADVISOR Impressions MUSE - 06/05/2023 8:46 AM CROP PRODUCTION ADVISOR Normal sinus rhythm Nonspecific T wave abnormality No previous ECGs available Reviewed by PATRIZIA Moreira Narrative Procedure Note Federico Pool M.D. - 06/05/2023 IMPRESSION: Normal sinus rhythm Nonspecific T wave abnormality No previous ECGs available Reviewed by PATRIZIA Moreira Kelley Javed P.A.-C. ECG ORDERABLES MUSE NA * MR Brain without and with IV Contrast (06/04/2023 11:27 AM CROP PRODUCTION ADVISOR) Anatomical Region Laterality Modality Head, Brain, Neuroradiology RST LOS, Neuroradiology ARZ LOS, Neuroradiology FLA LOS N/A Magnetic Resonance Impressions 06/04/2023 3:01 PM CROP PRODUCTION ADVISOR While both of the hippocampal formations appear small, the right is slightly smaller and demonstrates increased T2 hyperintensity relative to the left suggesting mesial temporal sclerosis. Symmetric bilateral T1 signal. ??Symmetric mamillary bodies but the right fornix appears slightly smaller on the right. No convincing evidence of a malformation of cortical development or encephalocele. No restricted diffusion or abnormal enhancement. Mild generalized cerebral and cerebellar volume loss. Multiple scattered subcortical T2 hyperintensities have not definitely changed. While nonspecific these findings appear most suggestive of small vessel ischemic change. No definite interval change since the prior study although the lack of comparable coronal sequences limits comparison. Image post-processing for quantitative segmental volume reporting and assessment was performed on an independent computer gravity prospecting observer using NeuroQuant software. The clinical indication for performing the post-processing was epilepsy. ??Review of the principal quality engineer images demonstrates good segmentation of the hippocampi. Left hippocampal volume: ??3.85 Left hippocampal volume age-adjusted percentile: ??18.00 Right hippocampal volume: ??3.58 Right hippocampal volume age-adjusted percentile: ??3.00 Hippocampal asymmetry index: ??7.14 Asymmetry index percentile: ??95.00 Narrative 06/04/2023 3:01 PM CROP PRODUCTION ADVISOR EXAM: MR BRAIN WITHOUT AND WITH IV CONTRAST COMPARISON: Outside brain MRI 05/12/2023 Procedure Note Dionisio Rudolph M.D. - 06/04/2023 EXAM: MR BRAIN WITHOUT AND WITH IV CONTRAST COMPARISON: Outside brain MRI 05/12/2023 IMPRESSION: While both of the hippocampal formations appear small, the right isslightly smaller and demonstrates increased T2 hyperintensity relative tothe left suggesting mesial temporal sclerosis. Symmetric bilateral [id number]. Symmetric mamillary bodies but the right fornix appears slightly smaller on the right. No convincingevidence of a malformation of cortical development or encephalocele. No restricted diffusion or abnormal enhancement. Mild generalized cerebraland cerebellar volume loss. Multiple scattered subcortical [id number] have not definitely changed. While nonspecific thesefindings appear most suggestive of small vessel ischemic change. No definite interval change since the prior studyalthough the lack of comparable coronal sequences limits comparison. Image post-processing for quantitative segmental volume reporting andassessment was performed on an independent computer gravity prospecting observer usingNeTechnitrolQuant software. The clinical indication for performing thepost-processing was epilepsy. Review of the principal quality engineer images demonstrates good segmentation of the hippocampi. Left hippocampal volume: 3.85 Left hippocampal volume age-adjusted percentile: 18.00 Right hippocampal volume: 3.58 Right hippocampal volume age-adjusted percentile: 3.00 Hippocampal asymmetry index: 7.14 Asymmetry index percentile: 95.00 Megan Quintero IMG MRI PROCEDURES * EEG (06/02/2023 4:07 PM CROP PRODUCTION ADVISOR) Gale MMODAL - 06/03/2023 7:17 AM CROP PRODUCTION ADVISOR Images from the original result were not included. CLINICAL INTERPRETATION: The short-term video EEG showed the following. Generalized atypical spike and wave and fragmentary discharges, consistent with a generalized seizure disorder. ?? The sleep recording was unsuccessful. EEG CLASSIFICATION SPECIAL STUDY - Short-term video EEG. Dysrhythmia grade 3 generalized atypical spike and wave and fragmentary discharges (awake). Sleep - unsuccessful. EKG channel. EEG REPORT The short-term video EEG recording during wakefulness contains 9-10 Hz alpha activity over the posterior head regions. During wakefulness, occasional to frequent anteriorly predominant generalized atypical spike and wave and fragmentary discharges with shifting predominance were present. The interictal discharges occur as singlets and sometimes in 2.5-3 Hz bursts, lasting 1 second without clinical accompaniment. There was additional activation during hyperventilation but none with photic stimulation. Despite an extended recording, the patient did not fall asleep. The EKG channel was unremarkable. Dr. Jones has reviewed the EEG with Dr. Luong and agrees with the interpretation. Generalized atypical spike and wave discharges Megan Quintero NEUROLOGY ORDERABLE S MMODAL NA from Last 3 Months or Most Recently Relevant to Health Maintenance Advance Directives For more information, please contact: [phone] * Full Code (Latest Code Status on File) Date Activated Date Inactivated Comments 06/05/2023 8:32 AM 06/08/2023 2:49 PM Question Answer Comments Full Code: Discussed
--- OUTSIDE RECORDS SUMMARY | 2023-08-17 22:49 | XMS_ITS | Referral Summary ---
Author Name Unknown Organization [facility] Address [address] [place] [address] Care Team Providers Care Creel Clerk Name Role Phone Unavailable Primary Care Provider Unavailabl e Source Comments Patient records contain information from all sites at [facility]. For routine questions regarding patient records, call [phone] during business hours, M-F 8:00 AM - 5:00 PM Central Time. Record requests for emergency care only can be directed to [phone] at any time.[facility] Encounters Date Type Department Care Team Description 07/17/2023 Orders Only Department of Neurology in [place], [place] [address] [place] [address] Megan Mcgrath M.B.B.S. 07/17/2023 Orders Only Department of Neurology in [place], [place] [address] [place] [address] Megan Mcgrath M.B.B.S. Epilepsy Seizure Intractable Without Status Epilepticus (HCC) (Primary Dx) 07/17/2023 Clinical Communication Department of Neurology in [place], [place] [address] [place] [phone] Megan Mcgrath M.B.B.S. New Med Request (Ramila) 07/16/2023 4:00 PM CDT Telemedicine Department of Neurology in [place], [place] [address] [place] [address] eMgan Mcgrath M.B.B.S. Epilepsy Seizure Intractable Without Status Epilepticus (HCC) (Primary Dx) 07/03/2023 Documentation Department of Neurology in [place], [place] [address] [place] [phone] Megan Mcgrath M.B.B.S. 06/25/2023 Documentation Department of Neurology in [place], [place] [address] [place] [phone] Dipika Rebollar M.D. 06/16/2023 Refill Department of Neurology in [place], [place] [address] [place] [phone] Megan Mcgrath M.B.B.S. Med Refill 06/05/2023 7:29 AM MOTHERS HELPER - 06/08/2023 12:39 PM MOTHERS HELPER Hospital Encounter [facility], [facility], Second floor [address] [place] [phone] Ab Calzada M.D. So, Elson, M.D. Epilepsy Seizure Intractable Without Status Epilepticus (HCC) (Primary Dx); Seizure Partial Complex (HCC) Discharge Disposition: Home or Self Care 06/04/2023 9:48 AM MOTHERS HELPER - 06/04/2023 11:59 PM MOTHERS HELPER Hospital Encounter Department of Radiology, [place], [place] [address] [place] [phone] Megan Mcgrath M.B.B.SAdy Seizure Partial Complex (HCC) Discharge Disposition: Home or Self Care 06/03/2023 Documentation Department of Neurology in [place], [place] [address] [place] [phone] Jaswant Verduzco M.D. 06/03/2023 Virtual Visit Department of Neurology in [place], [place] [address] [place] [phone] Jaswant Verduzco M.D. Seizure Partial Complex (HCC) (Primary Dx) 06/03/2023 11:56 AM MOTHERS HELPER - 06/03/2023 11:59 PM MOTHERS HELPER Hospital Encounter Department of Laboratory Medicine and Pathology, [facility] in [place], [place] [address] [place] [phone] Megan Mcgrath M.B.B.S. Seizure Partial Complex (HCC) Discharge Disposition: Home or Self Care 06/03/2023 10:00 AM MOTHERS HELPER Virtual Visit Department of Neurology in [place], [place] [address] [place] [phone] Megan Mcgrath M.B.B.S. Epilepsy Seizure Generalized Convulsive (HCC) (Primary Dx); Seizure Partial Complex (HCC) 06/02/2023 1:31 PM MOTHERS HELPER - 06/02/2023 11:59 PM MOTHERS HELPER Hospital Encounter Department of Neurology in [place], [place] [address] [place] [phone] Megan Mcgrath M.B.B.S. Seizure Partial Complex (HCC) Discharge Disposition: Home or Self Care 05/27/2023 11:30 AM MOTHERS HELPER Clinical Communication Virtual Review in [place], [place] 200 [place] [address] Pre-visit Intake from Last 3 Months Allergies Active Allergy Reactions Criticality Noted Date [...] With Anxious Mood 06/05/2023 Rhinitis Allergic 06/05/2023 Social History Tobacco Use Types Packs/Day Years Used Date Smoking Tobacco: Never Smokeless Tobacco: Never Alcohol Use Standard Drinks/Week Comments Not Currently 3 (1 standard drink = 0.6 oz pur e alcohol) Before quitting [facility] [employer] Answer Date Recorded In the past 12 months has [facility] [employer], gas, oil, or water [employer] threatened to shut off services in your [...] your living situation today? I have a [facility] place to live 06/05/2023 Sex and Gender Information Value Date Recorded Sex Assigned at Female 05/24/2023 12:13 PM MOTHERS HELPER Gender Identity Female 05/24/2023 12:13 PM MOTHERS HELPER Sexual Orientation Straight 05/24/2023 12 :13 PM MOTHERS HELPER Last Filed Vital Signs Vital Sign Reading Time Taken Comments Blood Pressure 114/77 06/08/2023 12:10 PM MOTHERS HELPER Pulse 72 06/08/2023 12:10 PM MOTHERS HELPER Temperature 37 ??C (98.6 ??F) 06/08/2023 12: 10 PM MOTHERS HELPER Respiratory Rate 16 06/08/2023 12:1 0 PM MOTHERS HELPER Oxygen Saturation 98% 06/08/2023 12: 10 PM MOTHERS HELPER Inhaled Oxygen Concentration - - Weight 80.7 kg (177 lb 14.6 oz) 06/05/2023 7:45 AM MOTHERS HELPER Height 167.6 cm (5' 6) 06/05/2023 7:45 AM MOTHERS HELPER Body Mass Index 28.72 06/05/2023 7:45 AM MOTHERS HELPER Plan of Treatment Upcoming Encounters Date Type Department Care Team (Late st Contact Info) Description 09/02/2023 1:00 PM CDT Telemedicine Department of Neurology in [place], [place] [address] [place] [address] Megan Mcgrath M.B.B.S. [address] [place] [phone] 11/03/2023 3:00 PM CDT Clinical Support Department of Neurology in [place], [place] [address] [place] [address] Megan Mcgrath M.B.B.S. [address] [place] [address] Procedures Procedure Name Priority Date/Time Associated Diagnosis Comments EPILEPSY MONITORING UNIT (EMU) ADMISSION Routine 06/08/2023 10:37 AM MOTHERS HELPER Seizure Partial Complex (HCC) VIDEO EEG MONITORING Routine 06/08/2023 10:33 AM MOTHERS HELPER VIDEO EEG MONITORING Routine 06/07/2023 5:00 AM MOTHERS HELPER VIDEO EEG MONITORING Routine 06/06/2023 5:00 AM MOTHERS HELPER LAMOTRIGINE LEVEL, S Timed 06/05/2023 11:05 AM MOTHERS HELPER COMPREHENSIVE METABOLIC PANEL, S/P Timed 06/05/2023 11:05 AM MOTHERS HELPER CBC WITH DIFFERENTIAL, B Timed 06/05/2023 11:04 AM MOTHERS HELPER ECG Routine 06/05/2023 8:39 AM MOTHERS HELPER MR BRAIN WITHOUT AND WITH IV CONTRAST RAD - Routine (most inpatients and all outpatients) 06/04/2023 11:27 AM MOTHERS HELPER Seizure Partial Complex (HCC) LAMOTRIGINE LEVEL, S Routine 06/03/2023 12:02 PM MOTHERS HELPER Seizure Partial Complex (HCC) EEG ROUTINE - AWAKE AND SLEEP Routine 06/02/2023 4:07 PM MOTHERS HELPER Seizure Partial Complex (HCC) EXTI LIPID PANEL W REFLEX MEASURED LDL Routine 11/18/2019 11:53 AM CDT BI BREAST SCREENING BILATERAL WITH TOMOSYNTHESIS RAD - Routine (most inpatients and all outpatients) 11/18/2019 9:56 AM CDT from Last 3 Months or Most Recently Relevant to Health Maintenance Results * Epilepsy monitoring unit (EMU) admission (06/08/2023 10:37 AM MOTHERS HELPER) Narrative MMODAL - 06/11/2023 5:22 PM MOTHERS HELPER Ready for staff review EEG MONITORING UNIT [...] on time - :47:22 Duration - electrographic: :55, ??clinical: 01:14 Pre-ictal symptoms: at around 17:00, [...] the interpretation. Megan Quintero NEUROLOGY ORDERABLE S Performing Organization Address [facility] Co de Phone Number MMODAL NA * Video EEG monitoring (06/08/2023 10:33 AM MOTHERS HELPER) Narrative MMODAL - 06/11/2023 5:20 PM MOTHERS HELPER Ready for staff review EEG MONITORING UNIT [...] P.A.-C. NEUROLOGY ORDER SANA Performing Organization Address [facility] Co de Phone Number MMODAL NA * Video EEG monitoring (06/07/2023 5:00 AM MOTHERS HELPER) Gale GUEVARA - 06/08/2023 6:34 PM MOTHERS HELPER EEG MONITORING UNIT DAILY EEG REPORT Report: [...] time - 00:37:41 Clinical on time - 01:47:22 Duration - electrographic: :09:55, ??clinical: 01:14 Pre-ictal [...] * Video EEG monitoring (06/06/2023 5:00 AM MOTHERS HELPER) Narrative MMODAL - 06/06/2023 3:12 PM MOTHERS HELPER EEG MONITORING UNIT DAILY EEG REPORT Report: [...] P.A.-C. NEUROLOGY ORDER SANA Performing Organization Address [facility] de Phone Number MMODAL NA * Lamotrigine Level (06/05/2023 11:05 AM MOTHERS HELPER) Only the most recent of2 resultswithin the time period is included. Lamotrigine, S 23.3 3.0 - 15.0 mcg/mL 06/06/2023 11:49 AM MOTHERS HELPER [facility] Comment: ----ADDITIONAL INFORMATION---- This test was developed and its performance characteristics determined by [facility] in a manner consistent with CLIA requirements. This test has not been cleared or approved by the U.S. Food and Drug Administration. Blood (Blood, Venous) 06/05/2023 11:05 AM MOTHERS HELPER 06/06/2023 7:32 AM MOTHERS HELPER Kelley Javed P.A.-C. LAB BLOOD NON A DD-ON Performing Organization Address [facility] Co de Phone Number [facility] [address] [place] [address] [facility] [address] [place] [address] [place] [address] * Comprehensive Metabolic Panel (06/05/2023 11:05 AM MOTHERS HELPER) Pathologist [facility] Potassium, S 5.2 3.6 - 5.2 mmol/L 06/05/2023 1:24 PM MOTHERS HELPER DTL Sodium, S 140 135 - 145 mmol/L 06/05/2023 1:24 PM MOTHERS HELPER DTL Chloride, S 105 98 - 107 mmol/L 06/05/2023 1:24 PM MOTHERS HELPER DTL Bicarbonate, S 25 22 - 29 mmol/L 06/05/2023 1:24 PM MOTHERS HELPER DTL Anion Gap 10 7 - 15 06/05/2023 1:24 PM MOTHERS HELPER DTL BUN (Blood Urea Nitrogen), S 17 6 - 21 mg/dL 06/05/2023 1:24 PM MOTHERS HELPER DTL Creatinine 0.85 0.59 - 1.04 mg/dL 06/05/2023 1:24 PM MOTHERS HELPER DTL Estimated GFR (eGFR) 83 >=60 mL/min/BS A 06/05/2023 1:24 PM MOTHERS HELPER DTL Comment: Estimated GFR calculated using the 2020 CKD_EPI creatinine equation. Calcium, Total, S 9.7 8.6 - 10.0 mg/dL 06/05/2023 1:24 PM MOTHERS HELPER DTL Glucose, S 84 70 - 140 mg/dL 06/05/2023 1:24 PM MOTHERS HELPER DTL Protein, Total, S 6.9 6.3 - 7.9 g/dL 06/05/2023 1:24 PM MOTHERS HELPER DTL Albumin, S 4.4 3.5 - 5.0 g/dL 06/05/2023 1:24 PM MOTHERS HELPER DTL Aspartate Aminotransferase (AST), S 24 8 - 43 U/L 06/05/2023 1:24 PM MOTHERS HELPER DTL Alkaline Phosphatase, S 100 35 - 104 U/L 06/05/2023 1:24 PM MOTHERS HELPER DTL Alanine Aminotransferase (ALT), S 38 7 - 45 U/L 06/05/2023 1:24 PM MOTHERS HELPER DTL Bilirubin, Total, S 0.2 0.0 - 1.2 mg/dL 06/05/2023 1:24 PM MOTHERS HELPER DTL Blood (Blood, Venous) 06/05/2023 11:05 AM MOTHERS HELPER 06/05/2023 12:02 PM MOTHERS HELPER Kelley Javed P.A.-C. LAB BLOOD ADD-O N [facility] [address] [place] [address], [facility] [place] DTL [facility] [address] [place] [address] * CBC with Differential, Blood (06/05/2023 11:04 AM MOTHERS HELPER) Hemoglobin 13.5 11.6 - 15.0 g/dL 06/05/2023 11:56 AM MOTHERS HELPER DTL Hematocrit 40.0 35.5 - 44.9 % 06/05/2023 11:56 AM MOTHERS HELPER DTL Erythrocytes 4.45 3.92 - 5.13 x10(12)/L 06/05/2023 11:56 AM MOTHERS HELPER DTL MCV 89.9 78.2 - 97.9 fL 06/05/2023 11:56 AM MOTHERS HELPER DTL RBC Distrib Width 12.2 12.2 - 16.1 % 06/05/2023 11:56 AM MOTHERS HELPER DTL Platelet Count 261 157 - 371 x10(9)/L 06/05/2023 11:56 AM MOTHERS HELPER DTL Leukocytes 4.3 3.4 - 9.6 x10(9)/L 06/05/2023 11:56 AM MOTHERS HELPER DTL Neutrophils 2.57 1.56 - 6.45 x10(9)/L 06/05/2023 11:56 AM MOTHERS HELPER DHPM Lymphocytes 1.29 0.95 - 3.07 x10(9)/L 06/05/2023 11:56 AM MOTHERS HELPER DTL Monocytes 0.36 0.26 - 0.81 x10(9)/L 06/05/2023 11:56 AM MOTHERS HELPER DTL Eosinophils 0.10 0.03 - 0.48 x10(9)/L 06/05/2023 11:56 AM MOTHERS HELPER DTL Basophils <0.03 0.01 - 0.08 x10(9)/L 06/05/2023 11:56 AM MOTHERS HELPER DTL Blood (Blood, Venous) 06/05/2023 11:04 AM MOTHERS HELPER 06/05/2023 11:49 AM MOTHERS HELPER Kelley Javed P.A.-C. LAB BLOOD ADD-O N Performing Organization Address [facility] Co de Phone Number [facility] [address] [place] [address], [facility] [place] DTL [facility] [address] [place] [address] DHPM [facility] [address] [place] [address] * ECG 12 Lead (06/05/2023 8:39 AM MOTHERS HELPER) Ventricular Rate ECG/Min 75 BPM MUSE MT Interval 134 ms MUSE QRSD Interval 84 ms MUSE QT Interval 384 ms MUSE QTC Interval 428 ms MUSE P [place] 50 degrees MUSE R [place] 60 degrees MUSE T Wave [place] 35 degrees MUSE 06/05/2023 8:39 AM MOTHERS HELPER 06/05/2023 8:46 AM MOTHERS HELPER Impressions MUSE - 06/05/2023 8:46 AM MOTHERS HELPER Normal sinus rhythm Nonspecific T wave abnormality No previous ECGs available Reviewed by PATRIZIA Moreira Narrative Procedure Note Federico Pool M.D. - 06/05/2023 IMPRESSION: Normal sinus rhythm Nonspecific T wave abnormality No previous ECGs available Reviewed by PATRIZIA Moreira Kelley Javed P.A.-C. ECG ORDERABLES Performing Organization Address [facility] Co de Phone Number MUSE NA * MR Brain without and with IV Contrast (06/04/2023 11:27 AM MOTHERS HELPER) Anatomical Region Laterality Modality Head, Brain, Neuroradiology RST LOS, Neuroradiology ARZ LOS, Neuroradiology FLA LOS N/A Magnetic Resonance Impressions 06/04/2023 3:01 PM MOTHERS HELPER While both of the hippocampal formations appear [...] assessment was performed on an independent computer server engineer using [employer] software. The clinical indication for performing the post-processing was epilepsy. ??Review of the director quality assurance images demonstrates good segmentation of the hippocampi. Left hippocampal volume: ??3.85 Left hippocampal volume age-adjusted percentile: ??18.00 Right hippocampal volume: ??3.58 Right hippocampal volume age-adjusted percentile: ??3.00 Hippocampal asymmetry index: ??7.14 Asymmetry index percentile: ??95.00 Narrative 06/04/2023 3:01 PM MOTHERS HELPER EXAM: MR BRAIN WITHOUT AND WITH IV CONTRAST COMPARISON: Outside brain MRI 05/12/2023 Procedure Note Dionisio Rudolph M.D. - 06/04/2023 EXAM: MR BRAIN WITHOUT AND WITH IV CONTRAST COMPARISON: Outside brain MRI 05/12/2023 IMPRESSION: While both of the hippocampal formations appear small, the right isslightly smaller and demonstrates increased T2 hyperintensity relative tothe left suggesting mesial temporal sclerosis. Symmetric bilateral [id number]. Symmetric mamillary bodies but the right fornix appears slightly smaller on the right. No convincingevidence of a malformation of cortical development or encephalocele. No restricted diffusion or abnormal enhancement. Mild generalized cerebraland cerebellar volume loss. Multiple scattered subcortical [id number] have not definitely changed. While nonspecific thesefindings appear most suggestive of small vessel ischemic change. No definite interval change since the prior studyalthough the lack of comparable coronal sequences limits comparison. Image post-processing for quantitative segmental volume reporting andassessment was performed on an independent computer server engineer using[employer] software. The clinical indication for performing thepost-processing was epilepsy. Review of the director quality assurance images demonstrates good segmentation of the hippocampi. Left hippocampal volume: 3.85 Left hippocampal volume age-adjusted percentile: 18.00 Right hippocampal volume: 3.58 Right hippocampal volume age-adjusted percentile: 3.00 Hippocampal asymmetry index: 7.14 Asymmetry index percentile: 95.00 Megan Quintero IMG MRI PROCEDURES * EEG (06/02/2023 4:07 PM MOTHERS HELPER) Narrative MMODAL - 06/03/2023 7:17 AM MOTHERS HELPER Images from the original result were not [...] Advance Directives For more information, please contact: [phone] * Full Code (Latest Code Status on File) Date Activated Date Inactivated Comments 06/05/2023 8:32 AM 06/08/2023 2:49 PM Question Answer Comments Full Code: Discussed
--- OUTSIDE RECORDS SUMMARY | 2023-08-17 22:49 | XMS_ITS ---
Author Name Unknown Organization [facility] Address [address] [place] [address] Care Team Providers Care Energy Assistant Name Role Phone Unavailable Unavailable Unavailable Surgery Details Not on file Complications Check Surgery Details section. Procedure Estimated Blood Loss Check Surgery Details section. Procedure Findings Check Surgery Details section. Procedure Specimens Taken Check Surgery Details section.
--- OUTSIDE RECORDS SUMMARY | 2023-08-17 22:49 | XMS_ITS | Encounter Summary ---
Author Name Unknown Organization [facility] Address [address] [place] [address] Care Team Providers Care Tone Regulator Name Role Phone Unavailable Primary Care Provider Unavailabl e Encounter Details Date Type Department Care Team (Late st Contact Info) Description 07/17/2023 Orders Only Department of Neurology in [place], [place] [address] [place] [phone] Megan Mcgrath M.B.B.S. [address] [place] [address] Social History Tobacco Use Types Packs/Day Years Used Date Smoking Tobacco: Never Smokeless Tobacco: Never Alcohol Use Standard Drinks/Week Comments Not Currently 3 (1 standard drink = 0.6 oz pur e alcohol) Before quitting [facility] Utilities Answer Date Recorded In the past 12 months has [facility], gas, oil, or water [employer] threatened to shut off services in your [...] money to buy more. Never true 06/05/19 Within the past 12 months, t he [...] your living situation today? I have a [facility] place to live 06/05/2023 Sex and Gender Information Value Date Recorded Sex Assigned at Female 05/24/2023 12:13 PM DESKTOP PUBLISHING SPECIALIST Gender Identity Female 05/24/2023 12:13 PM DESKTOP PUBLISHING SPECIALIST Sexual Orientation Straight 05/24/2023 12 :13 PM DESKTOP PUBLISHING SPECIALIST documented as of this encounter Plan of Treatment Upcoming Encounters Date Type Department Care Team (Late st Contact Info) Description 09/02/2023 1:00 PM CDT Telemedicine Department of Neurology in [place], [place] [address] [place] [phone] Megan Mcgrath M.B.B.S. [address] [place] [address] 11/03/2023 3:00 PM CDT Clinical Support Department of Neurology in [place], [place] [address] [place] [phone] Megan Mcgrath M.B.BAdyS. [address] [place] [phone] documented as of this encounter Visit Diagnoses Not on filedocumented in this encounter
--- OUTSIDE RECORDS SUMMARY | 2023-08-17 22:50 | XMS_ITS | Encounter Summary ---
Author Name Unknown Organization [facility] Address [address] [place] [address] Care Team Providers Care Restrictive Preparation Operator Name Role Phone Unavailable Primary Care Provider Unavailabl e Reason for Referral * Outpatient (Routine) - Closed Specialty Diagnoses / Procedures Referred By Contac t Referred To Contact Neurology Diagnoses Seizure Partial Complex (HCC) Macy Payton M.D. [address] [place] [address] [facility] Referral ID Status Reason Start Date Expiration Date Visits Re quested Visits Authorized [id number] Closed 05/15/2023 11/13/2024 1 1 A HAND Encounter Details Date Type Department Care Team (Late st Contact Info) Description 05/15/2023 [facility] [address] [place] [address] Macy Payton M.D. [address] [place] [phone] Seizure Partial Complex (HCC) (Primary Dx) Social History Tobacco Use Types Packs/Day Years Used Date Smoking Tobacco: Never Nutrition Answer Date Recorded Nutrition: EVOO Fat Source Unknown 04/10 Nutrition: Servings of Fruits/Vegetables per Day Not on file 04/10/2023 Dental Answer Date Recorded Dental: Regular Dentist Unknown 04/10/20 23 Sex and Gender Information Value Date Recorded Sex Assigned at Female 05/24/2023 12:13 PM EXTRA HAND Gender Identity Female 05/24/2023 12:13 PM EXTRA HAND Sexual Orientation Straight 05/24/2023 12 :13 PM EXTRA HAND documented as of this encounter Plan of Treatment Upcoming Encounters Date Type Department Care Team (Late st Contact Info) Description 09/02/2023 1:00 PM CDT Telemedicine Department of Neurology in [place], [place] [address] [place] [phone] Megan Mcgrath M.B.B.S. [address] [place] [phone] 11/03/2023 3:00 PM CDT Clinical Support Department of Neurology in [place], [place] [address] [place] [address] Megan Mcgrath M.B.B.S. [address] [place] [phone] Scheduled Referrals Name Type Priority Associated Diagnoses Orde r Schedule Neurology Referral Outpatient Referral Routine Seizure Partial Complex (HCC) Expected: 05/15/2023 (Approximate), Expires: 08/13/2024 documented as of this encounter Visit Diagnoses Diagnosis Seizure Partial Complex (HCC)- Primary documented in this encounter
--- OUTSIDE RECORDS SUMMARY | 2023-08-17 22:50 | XMS_ITS | Encounter Summary ---
Author Name Unknown Organization [facility] Address [address] [place] [address] Care Team Providers Care Regional Sales Associate Name Role Phone Unavailable Primary Care Provider Unavailabl e Reason for Referral * MRI/CAT/PET Scan (Routine) - Closed Specialty Diagnoses / Procedures Referred By Conor jones Referred To Contact Radiology Diagnoses Seizure Partial Complex (HCC) Procedures MR Brain without and with IV Contrast Megan Mcgrath M.B.B.S. [address] [place] [address] [facility] Referral ID Status Reason Start Date Expiration Date Visits Re quested Visits Authorized [id number] Closed 06/03/2023 06/02/2024 1 1 H BURNER Reason for Visit * MRI/CAT/PET Scan (Routine) - Closed Specialty Diagnoses / Procedures Referred By Conor jones Referred To Contact Radiology Diagnoses Seizure Partial Complex (HCC) Procedures MR Brain without and with IV Contrast Megan Mcgrath M.B.B.S. [address] [place] [phone] [facility] Referral ID Status Reason Start Date Expiration Date Visits Re quested Visits Authorized [id number] Closed 06/03/2023 06/02/2024 1 1 Encounter Details Date Type Department Care Team (Latest Contact Info) Description 06/04/2023 9:48 AM TORCH BURNER - 06/04/2023 11:59 PM TORCH BURNER Hospital Encounter Department of Radiology, [facility] in [place], [place] [address] [place] [phone] Megan Mcgrath M.B.BAdyS. [address] [place] [address] Seizure Partial Complex (HCC) Discharge Disposition: Home or Self Care Social History Tobacco Use Types Packs/Day Years Used Date Smoking Tobacco: Never Smokeless Tobacco: Never Alcohol Use Standard Drinks/Week Comments Not Currently 3 (1 standard drink = 0.6 oz pur e alcohol) Before quitting [facility] Utilities Answer Date Recorded In the past 12 months has e [employer], gas, oil, or water [employer] threatened to shut off services in your [...] your living situation today? I have a [facility] place to live 06/05/2023 Sex and Gender Information Value Date Recorded Sex Assigned at Female 05/24/2023 12:13 PM TORCH BURNER Gender Identity Female 05/24/2023 12:13 PM TORCH BURNER Sexual Orientation Straight 05/24/2023 12 :13 PM TORCH BURNER documented as of this encounter Medications at Time of Discharge Medication Sig Dispensed Refills Start Date End Date citalopram (CeleXA) 20 mg tablet Take 20 mg by mouth daily. Briviact 100 mg tablet tablet Take 250 mg by mouth 2 (two) times a day. 06/17/2023 Briviact 50 mg tablet Take 250 mg by mouth 2 (two) times a day. 07/17/2023 lamoTRIgine (LaMICtaL) 100 mg tablet Take by mouth 4 (four) times a day. TAKE 3 TABLETS BY MOUTH IN THE AM, 4 TABLETS AT MIDDAY, 3 TABLETS IN THE EVENING, 2 TABLETS AT BEDTIME. 05/24/2002 06/08/2023 LORazepam (ATIVAN) 1 mg tablet Take by mouth as needed. 05/24/1995 06/17/2023 documented as of this encounter Plan of Treatment Upcoming Encounters Date Type Department Care Team (Late st Contact Info) Description 09/02/2023 1:00 PM CDT Telemedicine Department of Neurology in [place], [place] [address] [place] [address] Megan Mcgrath M.B.B.S. [address] [place] [address] 11/03/2023 3:00 PM CDT Clinical Support Department of Neurology in [place], [place] [address] [place] [phone] Megan Mcgrath M.B.BAdyS. [address] [place] [address] documented as of this encounter Procedures Procedure Name Priority Date/Time Associated Diagnosis Comments MR BRAIN WITHOUT AND WITH IV CONTRAST RAD - Routine (most inpatients and all outpatients) 06/04/2023 11:27 AM TORCH BURNER Seizure Partial Complex (HCC) documented in this encounter Results * MR Brain without and with IV Contrast (06/04/2023 11:27 AM TORCH BURNER) Anatomical Region Laterality Modality Head, Brain, Neuroradiology RST LOS, Neuroradiology ARZ LOS, Neuroradiology FLA LOS N/A Magnetic Resonance Impressions 06/04/2023 3:01 PM TORCH BURNER While both of the hippocampal formations appear [...] was performed on an independent computer server systems administrator using NeuroQuant software. The clinical indication for performing the post-processing was epilepsy. ??Review of the inspector quality assurance images demonstrates good segmentation of the hippocampi. Left hippocampal volume: ??3.85 Left hippocampal volume age-adjusted percentile: ??18.00 Right hippocampal volume: ??3.58 Right hippocampal volume age-adjusted percentile: ??3.00 Hippocampal asymmetry index: ??7.14 Asymmetry index percentile: ??95.00 Narrative 06/04/2023 3:01 PM TORCH BURNER EXAM: MR BRAIN WITHOUT AND WITH IV CONTRAST COMPARISON: Outside brain MRI 05/12/2023 Procedure Note Dionisio Rudolph M.D. - 06/04/2023 EXAM: MR BRAIN WITHOUT AND WITH IV CONTRAST COMPARISON: Outside brain MRI 05/12/2023 IMPRESSION: While both of the hippocampal formations appear small, the right isslightly smaller and demonstrates increased T2 hyperintensity relative tothe left suggesting mesial temporal sclerosis. Symmetric bilateral [id number]. Symmetric mamillary bodies but the right fornix appears slightly smaller on the right. No convincingevidence of a malformation of cortical development or encephalocele. No restricted diffusion or abnormal enhancement. Mild generalized cerebraland cerebellar volume loss. Multiple scattered subcortical [id number] have not definitely changed. While nonspecific thesefindings appear most suggestive of small vessel ischemic change. No definite interval change since the prior studyalthough the lack of comparable coronal sequences limits comparison. Image post-processing for quantitative segmental volume reporting andassessment was performed on an independent computer server systems administrator usingRetrace software. The clinical indication for performing thepost-processing was epilepsy. Review of the inspector quality assurance images demonstrates good segmentation of the hippocampi. Left hippocampal volume: 3.85 Left hippocampal volume age-adjusted percentile: 18.00 Right hippocampal volume: 3.58 Right hippocampal volume age-adjusted percentile: 3.00 Hippocampal asymmetry index: 7.14 Asymmetry index percentile: 95.00 Megan Quintero Amaya MRI PROCEDURES documented in this encounter Visit Diagnoses Diagnosis Seizure Partial Complex (HCC) documented in this encounter Administered Medications Inactive Administered Medications - up to 3 most recent administrations Medication Order MAR Action Action Date Dose Rate Site gadobutrol injection 0.01-30 mL (GADAVIST) 0.01-30 mL, intravenous, Once in imaging, contrast, Starting on Sarah 06/04/23 at 1009, For 1 dose, Imaging Protocol Orders, Dose per Radiant Medication Guidelines Intrathecal doses greater than 0.25 mL not recommended. Given 06/04/2023 11:30 AM TORCH BURNER 9 mL documented in this encounter
--- OUTSIDE RECORDS SUMMARY | 2023-08-17 22:50 | XMS_ITS | Encounter Summary ---
Author Name Unknown Organization [facility] Address [address] [place] [address] Care Team Providers Care Construction Cost Estimator Name Role Phone Unavailable Primary Care Provider Unavailabl e Reason for Referral * Outpatient (Routine) - Authorized Specialty Diagnoses / Procedures Referred By Contac t Referred To Contact Diagnoses Epilepsy Seizure Generalized Convulsive (HCC) Procedures ROMULO Epilepsy stimulator programming - Physician Other; Discuss neuromodulation options Megan Mcgrath M.B.B.S. [address] [place] [phone] [facility] Referral ID Status Reason Start Date Expiration Date V isits Requested Visits Authorized [id number] Authorized 07/03/2023 07/02/2024 1 1 ING TOOL OPERATOR Encounter Details Date Type Department Care Team (Late st Contact Info) Description 07/03/2023 Documentation Department of Neurology in [place], [place] [address] [place] [phone] Megan Mcgrath M.B.B.S. [address] [place] [phone] Social History Tobacco Use Types Packs/Day Years Used Date Smoking Tobacco: Never Smokeless Tobacco: Never Alcohol Use Standard Drinks/Week Comments Not Currently 3 (1 standard drink = 0.6 oz pur e alcohol) Before quitting [facility] Utilities Answer Date Recorded In the past 12 months has th e electric, gas, oil, or water [employer] threatened to shut off services in your [...] your living situation today? I have a [facility] place to live 06/05/2023 Sex and Gender Information Value Date Recorded Sex Assigned at Female 05/24/2023 12:13 PM FISHING TOOL OPERATOR Gender Identity Female 05/24/2023 12:13 PM FISHING TOOL OPERATOR Sexual Orientation Straight 05/24/2023 12 :13 PM FISHING TOOL OPERATOR documented as of this encounter Progress Notes * Megan Mcgrath M.B.B.S. - 07/03/2023 11:16 AM CST I called the patient this morning to discuss the surgery conference consensus and It was discussed as she was doing better with the reduced lamotrigine dose and the recent initiation of perampanel. If her medication change proves unsuccessful long-term, the options of vagus nerve stimulation and RNS/DBS of the central median nuclei were discussed. The chances of achieving seizure freedom are estimated to be between 7% to 10%. VNS was favored, given its relative non-invasiveness compared to CM neuromodulation. . She started Fycompa 6 mg this week. Yesterday there was a lot of stress going, she reported feelingfuzzy and happened for the first time after she was discharged from the EMU. She took a half of lorazepam because she still needed to work. She was able to move on with rest of her day. She describedthe episode as her fingers started to get numb but it really did not go numb, she was not able to concentrate. But none of it was as bad as it before. There were no grand mal seizure. The fuzzy feeling lasted for 2 hrs before taking lorazepam. We also discussed about the neuromodulation consult. She mentioned uptil yesterday she wouldn???t be in the favour of it, but after the fuzzy episode yesterday she would like to have the initial consult with neuromodulation team. I also discussed with her that she needs to keep me informed if anytime she starts to have these episodes more frequently. I have placed the consult to neuromodulation. We also discussed about further medication management. Currently she is on fycompa 6 mg BID and there was cost concern if we further increase fycompa to 8 mg tablet it will cost her more, and if anytime needed in furture she would like to have her briviact increased instead. We discussed about further decreasing Lamictal to 600 mg and repeat levels in a week. Plan for her: 1)Place the neuromodulation consult 2)Continue fycompa 6 mg 3)Decrease Lamictal 600 mg 4)Trough levels in a week ING TOOL OPERATOR documented in this encounter Plan of Treatment Upcoming Encounters Date Type Department Care Team (Late st Contact Info) Description 09/02/2023 1:00 PM CDT Telemedicine Department of Neurology in [place], [place] [address] [place] [phone] Megan Mcgrath M.B.B.S. [address] [place] [phone] 11/03/2023 3:00 PM CDT Clinical Support Department of Neurology in [place], [place] [address] [place] [address] Megan Mcgrath M.B.B.S. [address] [place] [phone] Scheduled Orders Name Type Priority Associated Diagnoses Orde r Schedule ROMULO Epilepsy stimulator programming - Physician Other; Discuss neuromodulation options Neurology Routine Epilepsy Seizure Generalized Convulsive (HCC) Expected: 07/03/2023 (Approximate), Expires: 10/02/2024 Lamotrigine Level Lab Routine Epilepsy Seizure Generalized Convulsive (HCC) Expected: 07/03/2023 (Approximate), Expires: 10/02/2024 Perampanel Lab Routine Epilepsy Seizure Generalized Convulsive (HCC) Expected: 07/03/2023 (Approximate), Expires: 10/02/2024 documented as of this encounter Visit Diagnoses Diagnosis Epilepsy Seizure Generalized Convulsive (HCC)- Primary documented in this encounter
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
--- OUTSIDE RECORDS SUMMARY | 2023-08-17 22:50 | XMS_ITS | Encounter Summary ---
Author Name Unknown Organization [facility] Address [address] [place] [address] Care Team Providers Care Oriental Rug Stretcher Name Role Phone Unavailable Primary Care Provider Unavailabl e Encounter Details Date Type Department Care Team (Late st Contact Info) Description 07/17/2023 Orders Only Department of Neurology in [place], [place] [address] [place] [phone] Megan Mcgrath M.B.B.S. 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 I have a [facility] place to live 06/05/2023 Sex and Gender Information Value Date Recorded Sex Assigned at Female 05/24/2023 12:13 PM SPORTS COMPLEX ATTENDANT Gender Identity Female 05/24/2023 12:13 PM SPORTS COMPLEX ATTENDANT Sexual Orientation Straight 05/24/2023 12 :13 PM SPORTS COMPLEX ATTENDANT documented as of this encounter Plan of Treatment Upcoming Encounters Date Type Department Care Team (Late st Contact Info) Description 09/02/2023 1:00 PM CDT Telemedicine Department of Neurology in [place], [place] [address] [place] [address] Megan Mcgrath M.B.B.S. [address] [place] [phone] 11/03/2023 3:00 PM CDT Clinical Support Department of Neurology in [place], [place] [address] [place] [phone] Megan Mcgrath M.B.B.S. 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
--- OUTSIDE RECORDS SUMMARY | 2023-08-17 22:50 | XMS_ITS | Encounter Summary ---
Author Name Unknown Organization [facility] Address [address] [place] [address] Care Team Providers Care Audio Video Repairer Name Role Phone Unavailable Primary Care Provider Unavailabl e Reason for Visit * Reason Comments Med Refill Encounter Details Date Type Department Care Team ([facility] st Contact Info) Description 06/16/2023 Refill Department of Neurology in [place], [place] [address] [place] [phone] Megan Mcgrath M.B.B.S. [address] [place] [phone] Med Refill Social History Tobacco Use Types Packs/Day Years Used Date Smoking Tobacco: Never Smokeless Tobacco: Never Alcohol Use Standard Drinks/Week Comments Not Currently 3 (1 standard drink = 0.6 oz pur e alcohol) Before quitting [facility] Utilities Answer Date Recorded In the past 12 months has [facility] [employer], gas, oil, or water [employer] threatened to shut off services in your [...] your living situation today? I have a [facility] place to live 06/05/2023 Sex and Gender Information Value Date Recorded Sex Assigned at Female 05/24/2023 12:13 PM DIAMOND DRILLER Gender Identity Female 05/24/2023 12:13 PM DIAMOND DRILLER Sexual Orientation Straight 05/24/2023 12 :13 PM DIAMOND DRILLER documented as of this encounter Plan of Treatment Upcoming Encounters Date Type Department Care Team (Late st Contact Info) Description 09/02/2023 1:00 PM CDT Telemedicine Department of Neurology in [place], [place] [address] [place] [phone] Megan Mcgrath M.B.B.S. [address] [place] [phone] 11/03/2023 3:00 PM CDT Clinical Support Department of Neurology in [place], [place] [address] [place] [phone] Megan Mcgrath M.B.B.S. 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
--- OUTSIDE RECORDS SUMMARY | 2023-08-17 22:50 | XMS_ITS | Encounter Summary ---
Author Name Unknown Organization [facility] Address [address] [place] [address] Care Team Providers Care Supervisor Color Making Name Role Phone Unavailable Primary Care Provider Unavailabl e Reason for Visit * Reason Onset Date Comments Pre-visit Intake 05/27/2023 Encounter Details Date Type Department Care Team (Latest Contact Info) Description 05/27/2023 11:30 AM DRAFTER MECHANICAL Clinical Communication Virtual Review in [place], [place] [address] [place] [phone] Pre-visit Intake Social History Tobacco Use Types Packs/Day Years Used Date Smoking Tobacco: Never Smokeless Tobacco: Never Alcohol Use Standard Drinks/Week Comments Not Currently 3 (1 standard drink = 0.6 oz pur e alcohol) Before quitting Nutrition Answer Date Recorded Nutrition: EVOO Fat Source Unknown 04/10 Nutrition: Servings of Fruits/Vegetables per Day Not on file 04/10/2023 Dental Answer Date Recorded Dental: Regular Dentist Unknown 04/10/20 23 Sex and Gender Information Value Date Recorded Sex Assigned at Female 05/24/2023 12:13 PM DRAFTER MECHANICAL Gender Identity Female 05/24/2023 12:13 PM DRAFTER MECHANICAL Sexual Orientation Straight 05/24/2023 12 :13 PM DRAFTER MECHANICAL documented as of this encounter Plan of Treatment Upcoming Encounters Date Type Department Care Team (Late st Contact Info) Description 09/02/2023 1:00 PM CDT Telemedicine Department of Neurology in [place], [place] [address] [place] [phone] Megan Mcgrath M.B.B.S. [address] [place] [phone] 11/03/2023 3:00 PM CDT Clinical Support Department of Neurology in [place], [place] [address] [place] [phone] Megan Mcgrath M.B.BAdyS. [address] [place] [phone] documented as of this encounter Visit Diagnoses Not on filedocumented in this encounter
--- OUTSIDE RECORDS SUMMARY | 2023-08-17 22:50 | XMS_ITS | Encounter Summary ---
Author Name Unknown Organization [facility] Address [address] [place] [id number] Care Team Providers Care Hamper Maker Machine Name Role Phone Unavailable Primary Care Provider Unavailabl e Reason for Referral * Outpatient (Routine) - Closed Specialty Diagnoses / Procedures Referred By Conor jones Referred To Contact Diagnoses Seizure Partial Complex (HCC) Procedures EEG Megan Mcgrath M.B.B.S. [address] [place] [phone] [facility] Referral ID Status Reason Start Date Expiration Date Visits Re quested Visits Authorized [id number] Closed 05/15/2023 05/14/2024 1 1 ING OPERATOR Reason for Visit * Outpatient (Routine) - Closed Specialty Diagnoses / Procedures Referred By Conor jones Referred To Contact Diagnoses Seizure Partial Complex (HCC) Procedures EEG Megan Mcgrath M.B.B.S. [address] [place] [phone] [facility] Referral ID Status Reason Start Date Expiration Date Visits Re quested Visits Authorized [id number] Closed 05/15/2023 05/14/2024 1 1 Encounter Details Date Type Department Care Team (Latest Contact Info) Description 06/02/2023 1:31 PM GINNING OPERATOR - 06/02/2023 11:59 PM GINNING OPERATOR Hospital Encounter Department of Neurology in [place], [place] [address] [place] [phone] Megan Mcgrath M.B.B.S. [address] [place] [phone] Seizure Partial Complex (HCC) Discharge Disposition: Home or Self Care Social History Tobacco Use Types Packs/Day Years Used Date Smoking Tobacco: Never Smokeless Tobacco: Never Alcohol Use Standard Drinks/Week Comments Not Currently 3 (1 standard drink = 0.6 oz pur e alcohol) Before quitting [facility] Utilities Answer Date Recorded In the past 12 months has e [employer], gas, oil, or water [employer] threatened to shut off services in your [...] your living situation today? I have a [facility] place to live 06/05/2023 Sex and Gender Information Value Date Recorded Sex Assigned at Female 05/24/2023 12:13 PM GINNING OPERATOR Gender Identity Female 05/24/2023 12:13 PM GINNING OPERATOR Sexual Orientation Straight 05/24/2023 12 :13 PM GINNING OPERATOR documented as of this encounter Medications at [...] PM CDT Telemedicine Department of Neurology in [place], [place] 200 [place] [phone] Megan Mcgrath M.B.B.S. [address] [place] [phone] 11/03/2023 3:00 PM CDT Clinical Support Department of Neurology in [place], [place] [address] [place] [phone] Megan Mcgrath M.B.B.S. [address] [place] [phone] documented as of this encounter Procedures Procedure Name Priority Date/Time Associated Diagnosis Comments EEG ROUTINE - AWAKE AND SLEEP Routine 06/02/2023 4:07 PM GINNING OPERATOR Seizure Partial Complex (HCC) documented in this encounter Results * EEG (06/02/2023 4:07 PM GINNING OPERATOR) Narrative MMODAL - 06/03/2023 7:17 AM GINNING OPERATOR Images from the original result were not [...] Megan Quintero NEUROLOGY ORDERABLE S MMODAL NA documented in this encounter Visit Diagnoses Diagnosis Seizure Partial Complex (HCC) documented in this encounter
--- OUTSIDE RECORDS SUMMARY | 2023-08-17 22:50 | XMS_ITS | Continuity of Care Document ---
Author Name Unknown Organization [facility] Address [address] [place] [address] Phone Care Team Providers Care Rv Detailer Name Role Phone Jimmy Sue MD Unavailable Unavailable Allergies, Adverse Reactions, Alerts Substance Reaction Status Criticality Penicillins Active No Information Medications Medication Instructions Dosage Effective Dates (start - stop) Status Comments LAMICTAL (unknown strength) Not Available - Active KEPPRA (unknown strength) Not Available - Active ZONEGRAN (unknown strength) Not Available - Active ACYCLOVIR (unknown strength) Not Available - Active Procedures Procedure Date Office/outpatient visit,[facility] [place] Advance Directives Directive Yes / [...] Date Provider Providers Copied on Encounter Z [facility], [address] [place], [place] [address] [place] [address], [address], [place] tel:[phone] [facility] No Information Vikram Marquez. [facility], [address], [address], [place], [place], [id number] , [place]. tel:[phone] Office/outpat ient visit,new, mod Z [facility], [address], [place], [address], [place] tel:[phone] [facility] - [facility] No Information Vikram Maruqez. [facility], [address], [address], [place], [place], [id number] , [place]. [phone] Referring Provider: Patrick Pickard, [address], [place], [address]. tel:[phone] Family History Family Member Type Diagnosis Age At Onset Mother Problem (finding) low back problems Father Problem (finding) hypertension Mother Problem (finding) Heart disease Payers Payer name Insurance type Covered alliance party ID Authoriza tion(s) No Information Social [...]
--- OUTSIDE RECORDS SUMMARY | 2023-08-17 22:50 | XMS_ITS | Clinical Summary ---
Author Name Unknown Organization [email or web address] Address [place], [place] [address] Care Team Providers Care Boil Off Machine Operator Cloth Name Role Phone Unavailable Primary Care Provider Unavailabl e Allergies Active Allergy Reactions Criticality Noted Date Comments Penicillins *Unknown - Childhood Rxn 01/20/2007 Medications Medication Sig Dispensed Refills Start Date End Date Status LORazepam (ATIVAN) 1 mg tablet Take 1 Tablet by mouth. As needed for seizures or aura - Dr. Herrmann 08/13/2021 Active triamcinolone (ARISTOCORT) 0.5 % ointmentIndications: [...] and 150 mg before bedtime 120 Tablet 05/26/2022 Active brivaracetam (BRIVIACT) 100 mg tablet Take 100 mg by mouth two times daily. Take with 50 mg tablet (total 150 mg) twice per day. Do not crush or chew. Active brivaracetam (BRIVIACT) 50 mg tablet Take 50 mg by mouth two times daily. Take with 100 mg tablet (total 150 mg) twice per day. Do not crush or chew. Active citalopram (CELEXA) 20 mg tabletIndications:An xious depression Take 1 Tablet (20 mg) by mouth once daily. 90 Tablet 3 01/20/2023 Active Active Problems Problem Noted Date Diagnosed Date Complex partial seizure disorder 03/05/2010 Overview: Followed by Dr. Bruno at [facility]. 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 01/20/2007 03/05/20 10 Immunizations Name Administration Dates Next Due COVID-19 [...] Ectopic Multiple Livin g Live Births 1 Date Outcome GA Total Labor Labor/2nd/3rd [...] Body Mass Index 28.68 05/26/2022 2:14 PM CARDING MACHINE FEEDER Plan of Treatment Health Maintenance Due Date Last Done Comments HIV for age 15-65 09/04/1987 Hepatitis C screening for age 18-79 1990 Colonoscopy through age 75 2017 COVID-19 vaccine series ( season) 2022 01/24/2022, 02/28/2021, 08/15/2020, Additional history exists Zoster (shingles) series for age 50+ (2 of 2) 03/17/2023 01/20/2023 Mammogram for age 45-75 04/02/2023 04/02/20 22, 03/27/2022, 11/18/2019 BMI (ht and wt on same day) for age 18+ 05/26/2023 05/26/2022, 04/28/2022, 03/31/2022, Additional history exists Influenza for age 50-64 12/27/2023 01/21/20 23, 01/07/2022, 03/16/2021, Additional history exists Depression screening for age 12+ 01/21/2024 01/20/2023, 08/21/2022, 03/31/2022, Additional history exists Lipids for age 45-75 11/17/2024 11/18/2019, 05/16/19 11 Pap test for age 21-65 04/16/2025 , 04/16/2022, 11/18/2019, Additional history exists Tetanus booster 10/26/2029 10/27/2019, 02/14/2004 Tdap Completed 10/27/2019 Pneumococcal series for age 6-64 Aged Out No longer eligible based on patient's age to complete this topic Procedures Procedure Name Priority Date/Time Associated Diagnosis Comments HPV THIN PREP Routine 04/16/2022 3:20 PM CARDING MACHINE FEEDER XR MAMMO ANA LAURA UNI ADDL VIEWS RIGHT [place] 04/02/2022 2:50 PM CARDING MACHINE FEEDER Abnormal mammogram LIPID PANEL W REFLEX MEASURED LDL Routine 11/18/2019 11:53 AM CDT Screening for lipid disorders from Last 3 Months or Most Recently Relevant to Health Maintenance Results * HPV HIGH RISK (04/16/2022 3:20 PM CARDING MACHINE FEEDER) TYPE 16 Negative Negative 05/19/2022 11:41 AM CARDING MACHINE FEEDER [facility] TYPE 18 Negative Negative 05/19/2022 11:41 AM CARDING MACHINE FEEDER [facility] OTHER HIGH RISK TYPES Negative Negative 05/19/2022 11:41 AM CARDING MACHINE FEEDER [facility] Tissue (Other) Client Collect / Unknown 04/16/2022 3:20 PM CARDING MACHINE FEEDER 05/16/2022 1:50 PM CARDING MACHINE FEEDER Narrative [facility] - 05/19/2022 11:41 AM CARDING MACHINE FEEDER HPV types 16, 18, 31, 33, 35, 39, 45, 51, 52, 56, 58, 59, 66 and 68 DNA were undetectable or below the pre-set threshold. Methodology: Gayatri Bigg 4800 HPV Test Jovana Sheree Sorto MD MICROBIOLOGY [facility] [address] [place] [address], [place] * XR MAMMO ANA LAURA UNI ADDL VIEWS RIGHT (04/02/2022 2:50 PM CARDING MACHINE FEEDER) Anatomical Region Laterality Modality BREASTS, Breast Right Mammograph y Impressions 04/02/2022 4:01 PM CARDING MACHINE FEEDER Normal dense fibroglandular tissue. No evidence of malignancy. Mild fibrocystic change. RECOMMENDATIONS: Annual BILATERAL screening mammography. Results and recommendations discussed with the patient. BI-RADS Category 2: Benign Dictated by: Dionisio Storm MD @04/02/2022 3:24:48 PM / CRL:katrin PATIENTS: You will also receive a letter with your examination results in an easy to read format. ??If you have questions about your results, please contact your referring provider. Narrative 04/02/2022 4:01 PM CARDING MACHINE FEEDER For Patients: As a result of the Cures Act, medical imaging exams and procedure reports are released immediately into your electronic medical record. ??You may view this report before your referring provider. ?? If you have questions, please contact your health care provider. ADDITIONAL VIEWS RIGHT DIGITAL MAMMOGRAM USING TOMOSYNTHESIS, 04/02/2022 RIGHT BREAST ULTRASOUND, 04/02/2022 CLINICAL HISTORY: RIGHT breast mass/asymmetry. COMPARISON: 03/27/2022, 11/18/2019. TECHNIQUE: Digital RIGHT mammogram in two projections. Tomosynthesis utilized. Real-time ultrasound imaging of RIGHT breast with imaging documentation. BREAST COMPOSITION: The breast is heterogeneously dense, which may obscure small masses. FINDINGS: 3D spot compression CC and MLO mammogram images submitted. No architectural distortion. Normal dense fibroglandular tissue. No adenopathy. No suspicious masses. Targeted ultrasound of the RIGHT breast performed at 9 o'clock 3 cm from the nipple and 5 o'clock 6 cm from the nipple corresponding with densities on the screening mammogram. In these locations normal dense tissue is present. No underlying lesion. Jose Sosa MD MAMMO * (ABNORMAL) LIPID PANEL W REFLEX MEASURED LDL [[id number]] (11/18/2019 11:53 AM CDT) CHOLESTEROL,TOTAL 266(H) 100 - 199 mg/dL 11/18/2019 9:27 PM CDT [facility] TRIGLYCERIDES 58 <150 mg/dL 11/18/2019 9:27 PM CDT [facility] HDL CHOLESTEROL 81 >40 mg/dL 0 9:27 PM CDT [facility] NON-HDL CHOLESTEROL 185(H) <145 mg/dl 11/18/2019 9:27 PM CDT [facility] CHOL/HDL RATIO 3.28 <4.50 11/18/2019 9:27 PM CDT [facility] LDL CHOLESTEROL 173(H) <=130 mg/dL 11/18/2019 9:27 PM CDT [facility] PROVIDER ORDERED STATUS RANDOM 11/18/2019 9:27 PM CDT [facility] Blood BLOOD SPECIMEN / Unknown Venipuncture / Unknown 11/18/2019 11:53 AM CDT 11/18/2019 11:53 AM CDT Jose Sosa MD CHEMISTRY [email or web address] [address] [place] [address], [place] from Last 3 Months or Most Recently Relevant to Health Maintenance
--- OUTSIDE RECORDS SUMMARY | 2023-08-17 22:50 | XMS_ITS | Encounter Summary ---
Author Name Unknown Organization [facility] Address [address] [place] [id number] Care Team Providers Care Division Merchandise Manager Name Role Phone Unavailable Primary Care Provider Unavailabl e Reason for Visit * Outpatient (Routine) - Closed Specialty Diagnoses / Procedures Referred By Conor t Referred To Contact Neurology Megan Mcgrath M.B.B.S. [address] [place] [phone] [facility] Referral ID Status Reason Start Date Expiration Date Visits Re quested Visits Authorized [id number] Closed 07/14/2023 01/12/2025 1 1 Encounter Details Date Type Department Care Team ([facility] st Contact Info) Description 07/16/2023 4:00 PM CDT Telemedicine Department of Neurology in [place], [place] [address] [place] [phone] Megan Mcgrath M.B.B.S. [address] [place] [phone] Epilepsy Seizure Intractable Without Status Epilepticus (HCC) (Primary Dx) Social History Tobacco Use Types Packs/Day Years Used Date Smoking Tobacco: Never Smokeless Tobacco: Never Alcohol Use Standard Drinks/Week Comments Not Currently 3 (1 standard drink = 0.6 oz pur e alcohol) Before quitting [facility] Utilities Answer Date Recorded In the past 12 months has [employer] electric, gas, oil, or water company threatened to shut off services in your [...] your living situation today? I have a [facility] place to live 06/05/2023 Sex and Gender Information Value Date Recorded Sex Assigned at Female 05/24/2023 12:13 PM [employer] Gender Identity Female 05/24/2023 12:13 PM [employer] Sexual Orientation Straight 05/24/2023 12 :13 PM [employer] documented as of this encounter Progress Notes * Megan Mcgrath M.B.B.S. - 07/16/2023 4:00 PM CDT CHIEF COMPLAINT / REASON FOR VISIT Tashia Plummer is a 52 y.o. left handed female from [facility] who presents for evaluation of seizure disorder. She would like to know what new options are available. [place] [facility] [place]. She feels like she is currently over medicated and under treated. She is here for follow up visit. Interval history 07/16/2023: On my prior telemedicine visit with the patient we discussed about the neuromodulation consult. Shementioned up til 07/02/2023 she wouldn???t be in the favour of it, but after the fuzzy episode yesterday she would like to have the initial consult with neuromodulation team. I also discussed with her that she needs to keep me informed if anytime she starts to have these episodes more frequently. We also discussed about further medication management. Currently she is on fycompa 6 mg BID. On ourprior conversation we discussed about further decreasing Lamictal to 600 mg and repeat levels in a week. However she did not feel goo don lamotrigine 600 mg dose so she self increased back to lamotrigine 800 mg. She didn't have any fuzzy episodes ever since she was back on 800. She reports she wakes up having a feeling that she needs to take her medication immediately and she doesn't like the feeling so she would like to further have her Fycompa increased 8 mg. We discussed about the rescue plan and she has been taking lorazepam 1 mg as her rescue medication and she took it last time when she had the fuzzy episode. She took a half of lorazepam because she still needed to work. She was able to move on with rest of her day. She described the episode as her fingers started to get numb but it really did not go numb, she was not able to concentrate. But noneof it was as bad as it before. There were no grand mal seizure. The fuzzy feeling lasted for 2 hrs before taking lorazepam. We discussed her EMU evaluation and described her the events she had in the EMU. She has neuropsychtesting scheduled next week. Bacground history of seizure: Her seizure onset was at the age of 18. She describes her first seizures as zoning out. These occured without warning and she was aware that they occured. At the worst they occured several times per day. She was well controlled for many years on Lamictal monotherapy. She had her first tonic clonic seizure on 09/08/09. She reported consuming an entire bottle of wine the night prior and being under a great deal of stress. She felt slow and confused prior to the seizure. Her came home to her daughter crying and found her walking around postictally. She was on generic lamotrigine at the time. She was then switched back to brand name medication. She has total 4 tonic clonic seizures (2009,2011,2012) with last one being 05/12/2023 when she was presented to ER. Dr Herrmann increased her Briviact 250 mg BID. She did not have any intermittent confusional episodes that she has preceding tonic clonic seizures other times without progressing to tonicclonic seizure. She did not have any tonic clonic seizures after 05/12/2023. She continues to have her semiology # 2 couple times of week, that could happen with or without pepper vu. Current Seizure Description HISTORY OF PRESENT ILLNESS Epilepsy Type: Focal and generalised Epilepsy Syndrome: No defined syndrome Etiology: Unknown Seizure Description: Semiology # 1 Staring mariya the space. Previously told that they were able to get her attention or snap her out of it and other times they not able to. She was told that she would repeat same thing over again and again ' lets see, let see' is one of the example mentioned by the patient. Not confused after these episodes. Onset: 18 Frequency: Once a month (Lately she has been alone and the only way she could tell if she had one of these episodes if she has time lapse while she is working on her computer) Duration: Very brief, few seconds Semiology # 2 Preceding auras metallic taste in mouth, she smells something sweet. She sometimes feels nauseous, tingling in her hand. She would be sitting and the leg would twitch (R>>L), sometimes hand would move in a motion. Right finger get numb. Not progressing to convulsions. Pepper vu sensation can happen every couple of weeks with these episodes or other times independently. Onset: relatively recent mid 40s, likely [id number] Frequency: Couple times a week Duration: They last all evening Semiology#3She would be looking at a computer, not fully understanding where she is looking at or what happening, how to turn on the fan that would last whole day. Daughter mentioned to her that she is acting weird. She would find herself sitting in the vargas crying. She doesn't know if she is having a small seizures or having auras of generalised seizures Frequency: did not have any episodes after Briviact was increased 05/12/2023 Semiology # 4 Semiology #3 progressing to tonic clonic seizures. For the most recent one the only thing she remembered she was not able to understand which door to look at, how to use a tooth brush and remembered waking up in the ambulance. Her daughter found her on the floor. There was no great description for the tonic clonic episode. She is confused for 24 hrs afterwards. Frequency: had total 4 episodes ( 2009), 2012, last one was 3 weeks ago (04/2023) Date of onset: 08/2009 Duration: unclear Risk factor: She had consuiion with LOC (Riding her bike), no febrile history of seizures. Father had epilepsy controlled with medications Medications: Lamotrigine 300/400/200/200 (sometimes has of it or early) Briviact 250 BID. She takeslorazepam as needed if she thinks confusions episode is prolonged and severe, last dose was taking yesterday after EEG. Prior medications: Divalproex (Depakote),Phenytoin (Dilantin),Gabapentin(Neurontin)Carbamazepine (Tegretol),Ethosuximide (Zarontin), Neurontin, Zonegran, keppra, diazepam Current medications: Celexea 20 mg, Lorezepam last took yesterday Description of side effects: excustaed Other treatments: None Prior workup: MRI Brain 10/11/2009: Coronal FLAIR sequence suggest increased signal within the left, greater thanright, hippocampus. Normal MR spectroscopy in both hippocampal regions. Findings could represent artifact versus subtle changes of mesial temporal sclerosis. No corresponding abnormality on the MR spectroscopy performed in the left and right hippocampal regions. 2. A few tiny foci of nonspecific gliosis in the subcortical cerebral white matter. Head MRI otherwise negative with no acute infarcts, mass lesions or hemorrhage. MRI BRAIN 05/2023 at [place]: While both of the hippocampal formations appear small, the right is slightly smaller and demonstrates increased T2 hyperintensity relative to the left suggesting mesial temporal sclerosis. Symmetric bilateral T1 signal. Symmetric mamillary bodies but the right fornix appears slightly smaller on the right. No convincing evidence of a malformation of cortical development or encephalocele. However reviewed during SEC conference and No epileptogenic lesional abnormality was identified. EEG 03/14/2005: This EEG is abnormal secondary to spike, spike slow wave with bifrontal focality leading to a seondary generalization with bursts between 5-10 seconds. With one burst, there may be a slowing of her response and with the other burst, potential several eye blinks and swallow. These abnormalities suggest a convulsive disorder. Frontal focality is noted although no laterality is noted. EMU at [place] 06/11/2023: INTERPRETATION AND CLINICAL CORRELATE This computer-assisted prolonged video EEG recording demonstrated Generalized potentially epileptiform discharges which is most consistent with the presence of a generalized seizure disorder. An event of dyscognitive feeling with no definite ictal EEG correlate but with increasing frequencyof interictal discharges. Two generalized clonic seizures occurred, [...] hemibody Brenton's paralysis in the post-ictal phase. Brain imaging (MRI, PET, KIZZY): None Co-morbidities: Anxiety Is the patient aware of driving and other safety concerns related to epilepsy: Driving If the patient is female and of child-bearing age, is she aware how epilepsy may affect contraceptive use and ?: non applicable Education history: College degree, BA. 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 REVIEW OF SYSTEMS: REVIEW OF SYSTEMS ROS negative except already mentioned. OBJECTIVE PHYSICAL EXAM ASSESSMENT / PLAN General: Well-appearing, no distress. 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 We discussed classification of her epilepsy type. 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 She has prior EEG with bifrontal epileptogenic abnormalities consistent with focal epilepsy and recent EEGs completed at [facility] for generalised atypical spike and wave consistent with generalised epilepsy. During her last EMU 05/2023 We recorded generalized EEG onset seizures, despite the fact that she had focal semiology into the seizure. After basically being in generalized subclinical status for hours, she had two bilateral clonic seizures (one with right head turn and post-ictal right hand paresis, the other with left head turn and probably post-ictal left hand paresis). The bulk of her interictal discharges were generalized, both atypical spike and waves, and also frequent brief bursts of polyspikes of less than a second. Therefore, she also has a atypical absence seizures, as in her history. Despite the fact that the above suggestions of focal semiology, which however occurred following generalized EEG seizure onset, and despite endorsing focal symptoms during review of system (smelling sweetness, metallic taste, Pepper Vu), we do not have evidence that focal epilepsy is the basis of herseizure burden. Besides, the above also suggest that she could have multifocal epilepsy. Her MRI of the brain did show slightly increased T2 at the right hippocampus. The size is also slightly small, but I think the difference in the size compared to the left side is not significant. Shetells me that she has not experienced a prolonged convulsive seizure or status epilepticus. Sometimes, prolonged primary generalized seizure episodes can result in hippocampal scarring. Her last convulsive seizure was on May 12. Prior to that, it was 9 years before. When the seizure occurred on April, it occurred in the setting of regularly taking the very high dose of lamotrigine at 1200 mg per day. Her serum concentration of lamotrigine is also high, at 24.5 micrograms/milliliter (reference range of 3-15). She was experiencing symptoms that are compatible with lamotrigine toxicity. Therefore, lamotrigine was reduced in the EMU. We discussed medications management and presurgical evaluation. Ever since her lamotrigine has beendecreased in the EMU to Lamotrigine 800 mg. She has been feeling a lot better. Fycompa was also started in the EMU. She didn't have any additional seizure since EMU discharge however had one episode of fuzzy feeling on July 01 and she took half dose of lorazepam (Rescue medication) for it and shewas about to carry out the rest od the day. We discussed about further decreasing lamotrigine to 600 mg however she was not feeling good on this dose we increased it back to lamotrigine 800 mg. Patient would like to have her Fycompa dose increased 8 mg as she doesn't like the feeling she wakes up in the morning. She should stay on the current high dose of Briviact of 250 mg twice a day. This was increased dose--increased when she had the seizure on April the . Her case was discussed during SEC on 06/29/2023. It was discussed If her medication change proves unsuccessful long-term, the options of vagus nerve stimulation and RNS/DBS of the central median nuclei were discussed. The chances of achieving seizure freedom are estimated to be between 7% to 10%. VNS was favored, given its relative non-invasiveness compared to CM neuromodulation. Neuromodulation order has been placed. We discussed about about driving and educated the patient about driving restriction per [place] law. Herlast episode was 05/12/2023 and she continues to drive. She was told that she is supposed to drive for three months, as she is putting her life and other people life in danger. She voiced the understanding of this. I will have to report if she continues to drive. She voiced the understanding of this. We previously discussed the risk of SUDEP in the patients with epilepsy and having tonic clonic seizures. She voiced in the understanding. Plan: I would like to see the patient in 3 months with the following prescheduled tests: . -Will increase Fycompa to 8 mg -Will follow up on lamotrigine level -Will continue lamotrigine 800 mg and Briviact 250 mg BID -She will be following with out neuromodulation colleagues. documented in this encounter Plan of Treatment Upcoming Encounters Date Type Department Care Team (Late st Contact Info) Description 09/02/2023 1:00 PM CDT Telemedicine Department of Neurology in [place], [place] [address] [place] [phone] Megan Mcgrath M.B.B.S. [address] [place] [phone] 11/03/2023 3:00 PM CDT Clinical Support Department of Neurology in [place], [place] [address] [place] [phone] Megan Mcgrath M.B.B.S. [address] [place] [phone] documented as of this encounter Visit Diagnoses Diagnosis Epilepsy Seizure Intractable Without Status Epilepticus (HCC)- Primary documented in this encounter
--- OUTSIDE RECORDS SUMMARY | 2023-08-17 22:50 | XMS_ITS | Encounter Summary ---
Author Name Unknown Organization [facility] Address [address] [place] [id number] Care Team Providers Care Edge Blacker Name Role Phone Unavailable Primary Care Provider Unavailabl e Encounter Details Date Type Department Care Team (Latest Contact Info) Description 06/03/2023 11:56 AM HIDE BUFFER - 06/03/2023 11:59 PM [facility] Hospital Encounter Department of Laboratory Medicine and Pathology, [facility] [place], [place] [address] [place] [phone] Megan Mcgrath M.B.B.S. [address] [place] [phone] Seizure Partial Complex (HCC) Discharge Disposition: Home or Self Care Social History Tobacco Use Types Packs/Day Years Used Date Smoking Tobacco: Never Smokeless Tobacco: Never Alcohol Use Standard Drinks/Week Comments Not Currently 3 (1 standard drink = 0.6 oz pur e alcohol) Before quitting [facility] Utilities Answer Date Recorded In the past 12 months has [employer], gas, oil, or water [employer] threatened to shut off services in your [...] your living situation today? I have a [facility] place to live 05/31/2023 Sex and Gender Information Value Date Recorded Sex Assigned at Female 05/24/2023 12:13 PM HIDE BUFFER Gender Identity Female 05/24/2023 12:13 PM HIDE BUFFER Sexual Orientation Straight 05/24/2023 12 :13 PM HIDE BUFFER documented as of this encounter Medications at [...] PM CDT Telemedicine Department of Neurology in [place], [place] [address] [place] [phone] Megan Mcgrath M.B.B.S. [address] [place] [phone] 11/03/2023 3:00 PM CDT Clinical Support Department of Neurology in [place], [place] [address] [place] [phone] Megan Mcgrath M.B.B.S. [address] [place] [phone] documented as of this encounter Procedures Procedure Name Priority Date/Time Associated Diagnosis Comments LAMOTRIGINE LEVEL, S Routine 06/03/2023 12:02 PM HIDE BUFFER Seizure Partial Complex (HCC) documented in this encounter Results * Lamotrigine Level (06/03/2023 12:02 PM HIDE BUFFER) Lamotrigine, S 24.5 3.0 - 15.0 mcg/mL 06/04/2023 3:08 PM HIDE BUFFER [facility] Comment: ----ADDITIONAL INFORMATION---- This test was developed and its performance characteristics determined by [facility] in a manner consistent with CLIA requirements. This test has not been cleared or approved by the U.S. Food and Drug Administration. Blood (Blood, Venous) 06/03/2023 12:02 PM HIDE BUFFER 06/04/2023 7:32 AM HIDE BUFFER Megan MccoySAdy LAB BLOOD NON ADD-O N [facility] [address] [place] [id number] [facility] [address] [place] [address] [place] [phone] documented in this encounter Visit Diagnoses Diagnosis Seizure Partial Complex (HCC) documented in this encounter
--- OUTSIDE RECORDS SUMMARY | 2023-08-17 22:50 | XMS_ITS | Encounter Summary ---
Author Name Unknown Organization [facility] Address [address] [place] [address] Care Team Providers Care First Officer And Flight Instructor Name Role Phone Unavailable Primary Care Provider Unavailabl e Reason for Referral * MRI/CAT/PET Scan (Routine) - Closed Specialty Diagnoses / Procedures Referred By Conor jones Referred To Contact Radiology Diagnoses Seizure Partial Complex (HCC) Procedures MR Brain without and with IV Contrast Megan Mcgrath M.B.B.S. [address] [place] [address] [facility] Referral ID Status Reason Start Date Expiration Date Visits Re quested Visits Authorized [id number] Closed 06/03/2023 06/02/2024 1 1 RICT ENGINEER * Outpatient (Routine) - Closed Specialty Diagnoses / Procedures Referred By Conor jones Referred To Contact Diagnoses Seizure Partial Complex (HCC) Procedures Epilepsy monitoring unit (EMU) admission Megan Mcgrath M.B.B.S. [address] [place] [phone] [facility] Referral ID Status Reason Start Date Expiration Date Visits Re quested Visits Authorized [id number] Closed 06/05/2023 06/02/2024 1 1 RICT ENGINEER Reason for Visit * Appointment Request (Routine) - Closed Specialty Diagnoses / Procedures Referred By Conor t Referred To Contact Neurology Diagnoses Other forms of epilepsy and recurrent seizures without mention of intractable epilepsy (CMS/HCC) Referral ID Status Reason Start Date Expiration Date Visits Re quested Visits Authorized [id number] Closed 04/10/2023 04/09/2024 1 1 Encounter Details Date Type Department Care Team (Late st Contact Info) Description 06/03/2023 10:00 AM DISTRICT ENGINEER Virtual Visit Department of Neurology in [place], [place] [address] [place] [phone] Megan Mcgrath M.B.B.S. [address] [place] [phone] Epilepsy Seizure Generalized Convulsive (HCC) (Primary Dx); Seizure Partial Complex (HCC) Social History Tobacco Use Types Packs/Day Years Used Date Smoking Tobacco: Never Smokeless Tobacco: Never Alcohol Use Standard Drinks/Week Comments Not Currently 3 (1 standard drink = 0.6 oz pur e alcohol) Before quitting [facility] Utilities Answer Date Recorded In the past 12 months has [employer], gas, oil, or water [employer] threatened to shut off services in your [...] your living situation today? I have a [facility] place to live 05/31/2023 Sex and Gender Information Value Date Recorded Sex Assigned at Female 05/24/2023 12:13 PM DISTRICT ENGINEER Gender Identity Female 05/24/2023 12:13 PM DISTRICT ENGINEER Sexual Orientation Straight 05/24/2023 12 :13 PM DISTRICT ENGINEER documented as of this encounter Last Filed Vital Signs Vital Sign Reading Time Taken Comments Blood Pressure - - Pulse - - Temperature 36.4 ??C (97.5 ??F) 06/03/2023 9:41 AM CS T Respiratory Rate - - Oxygen Saturation - - Inhaled Oxygen Concentration - - Weight 81.1 kg (178 lb 12.7 oz) 06/03/2023 9:41 AM DISTRICT ENGINEER Height 171 cm (5' 7.32) 06/03/2023 9:41 AM DISTRICT ENGINEER Body Mass Index 27.73 06/03/2023 9:41 AM DISTRICT ENGINEER documented in this encounter Consult Notes * Megan Mcgrath M.B.BAdyS. - 06/03/2023 10:00 AM CST SUBJECTIVE CHIEF COMPLAINT / REASON FOR VISIT Tashia Plummer is a 52 y.o. left handed female from [facility] who presents for evaluation of seizure disorder. She would like to know what new options are available. [place] [facility] with [place] Herr[place]. She feels like she is currently over medicated and under treated. [place] history of seizure: Her seizure onset [...] independently. Onset: relatively recent mid 40s, likely [id number] Frequency: Couple times a week Duration: They [...] afterwards. Frequency: had total 4 episodes ( , 2012, last one was 3 weeks ago [...] no acute infarcts, mass lesions or hemorrhage. EEG 03/14/2005: This EEG is abnormal secondary to spike, spike slow wave with bifrontal focality leading to a seondary generalization with bursts between 5-10 seconds. With one burst, there may be a slowing of her response and with the other burst, potential several eye blinks and swallow. These abnormalities suggest a convulsive disorder. Frontal focality is noted although no laterality is noted. Brain imaging (MRI, PET, KIZZY): None Co-morbidities: Anxiety Is the patient aware of driving and other safety concerns related to epilepsy: Driving If the patient is female and of child-bearing age, is she aware how epilepsy may affect contraceptive use and ?: non applicable Education history: College degree, BA. 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 REVIEW OF SYSTEMS: REVIEW OF SYSTEMS ROS negative except already mentioned. OBJECTIVE PHYSICAL EXAM ASSESSMENT / PLAN General: Well-appearing, no distress. Neurologic: Mental status: Alert, demonstrates orientation to self, time, and place. Naming was intact. Cranial nerves: Pupils equally round and reactive, extraocular movements in tact without nystagmus,symmetric facial movements and sensation, hearing in tact to conversation, symmetric palate, midline uvula, tongue protrudes midline, normal phonation, normal shrug and head turn. Motor: Tone is normal, no appreciated weakness. Sensory: Normal to small and large fiber modalities. Reflexes:Normal deep tendon reflexes non enhanced. Coordination: No tremor. normal coordination, normal pronation-supination of hand, normal iarock-ot-dfbf test. Gait: Non ataxic. #1 Seizure Partial Complex (HCC) #2 Epilepsy Seizure Generalized Convulsive (HCC) In summary, She has intractable epilepsy and she has 9 antiseizure medications. We discussed classification of her epilepsy type. 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 She has prior EEG with bifrontal epileptogenic abnormalities consistent with focal epilepsy and recent EEGs completed at [facility] for generalised atypical spike and wave consistent with generalised epilepsy. She has prior MRI done in 2009 which according to thenotes reported abnormal signal of left hippocampus more than the right however mentioned in the notes could be artifact or mesial temporal diagnosis. We concluded that she does have intractable epilepsy with the recent episodes of pepper vu, metallic taste in mouth likely focal epilepsy and EEG generalised epilepsy. We discussed medications management and presurgical evaluation. We dicussed she is hefty dose of lamotrigine and Briviact, previously failed multiple other medications she is refractory epilepsy. We discussed about side effect of lamotrigine and patient mentioned having diplopia and gait unsteadiness. We discussed it would be reasonable to have her levels repeated. She is not currently on any OCPs or estrogen, she has history of hysterotomy. We discussed that it would be reasonable to bring herto EMU to record all her semiologies and have better understanding of her epilepsy and for presurgical evaluation. Since her events are not two frequent we can have her medication weaned off in the EMU to trigger event. We will also obtain new MRI Brain with epilepsy protocol. We discussed about about driving and educated the patient about driving restriction per [place] law. Herlast episode was 05/12/20[address] she [address] to drive. She was told that she is supposed to drive for three months, as she is putting her life and other people life in danger. She voiced the understanding of this. I will have to report if she continues to drive. She voiced the understanding of this. We discussed the risk of SUDEP in the patients with epilepsy and having tonic clonic seizures. She voiced in the understanding. Plan: -EMU admission for presurgical evaluation including neuropsych testing -MRI Brain with epilepsy protocol (3T) -Will obtain random level for lamotrigine Staff: Dr Verduzco RICT ENGINEER documented in this encounter Plan of Treatment Upcoming Encounters Date Type Department Care Team (Late st Contact Info) Description 09/02/2023 1:00 PM CDT Telemedicine Department of Neurology in [place], [place] [address] [place] [phone] Megan Mcgrath M.B.B.S. [address] [place] [phone] 11/03/2023 3:00 PM CDT Clinical Support Department of Neurology in [place], [place] [address] [place] [phone] Megan Mcgrath M.B.B.S. [address] [place] [phone] documented as of this encounter Results * Epilepsy monitoring unit (EMU) admission (06/08/2023 10:37 AM DISTRICT ENGINEER) Narrative MMODAL - 06/11/2023 5:22 PM DISTRICT ENGINEER Ready for staff review EEG MONITORING UNIT [...] [place]rola and agrees with the interpretation. Megan Tanwir M.B.B.S. NEUROLOGY ORDERABLE S MMODAL NA * MR Brain without and with IV Contrast (06/04/2023 11:27 AM DISTRICT ENGINEER) Anatomical Region Laterality Modality Head, Brain, Neuroradiology RST LOS, Neuroradiology ARZ LOS, Neuroradiology FLA LOS N/A Magnetic Resonance Impressions 06/04/2023 3:01 PM DISTRICT ENGINEER While both of the hippocampal formations appear [...] assessment was performed on an independent computer medical observer using [employer] software. The clinical indication for performing the post-processing was epilepsy. ??Review of the quality control specialist images demonstrates good segmentation of the hippocampi. Left hippocampal volume: ??3.85 Left hippocampal volume age-adjusted percentile: ??18.00 Right hippocampal volume: ??3.58 Right hippocampal volume age-adjusted percentile: ??3.00 Hippocampal asymmetry index: ??7.14 Asymmetry index percentile: ??95.00 Narrative 06/04/2023 3:01 PM DISTRICT ENGINEER EXAM: MR BRAIN WITHOUT AND WITH IV CONTRAST COMPARISON: Outside brain MRI 05/12/2023 Procedure Note Dionisio Rudolph M.D. - 06/04/2023 EXAM: MR BRAIN WITHOUT AND WITH IV CONTRAST COMPARISON: Outside brain MRI 05/12/2023 IMPRESSION: While both of the hippocampal formations appear small, the right isslightly smaller and demonstrates increased T2 hyperintensity relative tothe left suggesting mesial temporal sclerosis. Symmetric bilateral [id number]. Symmetric mamillary bodies but the right fornix appears slightly smaller on the right. No convincingevidence of a malformation of cortical development or encephalocele. No restricted diffusion or abnormal enhancement. Mild generalized cerebraland cerebellar volume loss. Multiple scattered subcortical [id number] have not definitely changed. While nonspecific thesefindings appear most suggestive of small vessel ischemic change. No definite interval change since the prior studyalthough the lack of comparable coronal sequences limits comparison. Image post-processing for quantitative segmental volume reporting andassessment was performed on an independent computer medical observer [email or web address] software. The clinical indication for performing thepost-processing was epilepsy. Review of the quality control specialist images demonstrates good segmentation of the hippocampi. Left hippocampal volume: 3.85 Left hippocampal volume age-adjusted percentile: 18.00 Right hippocampal volume: 3.58 Right hippocampal volume age-adjusted percentile: 3.00 Hippocampal asymmetry index: 7.14 Asymmetry index percentile: 95.00 Megan MccoySAdy IMG MRI PROCEDURES * Lamotrigine Level (06/03/2023 12:02 PM DISTRICT ENGINEER) Lamotrigine, S 24.5 3.0 - 15.0 mcg/mL 06/04/2023 3:08 PM DISTRICT ENGINEER [facility] Comment: ----ADDITIONAL INFORMATION---- This test was developed and its performance characteristics determined by [facility] in a manner consistent with CLIA requirements. This test has not been cleared or approved by the U.S. Food and Drug Administration. Blood (Blood, Venous) 06/03/2023 12:02 PM DISTRICT ENGINEER 06/04/2023 7:32 AM DISTRICT ENGINEER Megan MccoySAdy LAB BLOOD NON ADD-O N [facility] [address] [place] [address] [facility] [address] [place] [address] 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
--- OUTSIDE RECORDS SUMMARY | 2023-08-17 22:50 | XMS_ITS | Encounter Summary ---
Author Name Unknown Organization [facility] Address [address] [place] [id number] Care Team Providers Care Shuttlecock Feather Trimmer Name Role Phone Unavailable Primary Care Provider Unavailabl e Reason for Referral * Outpatient (Routine) - Closed Specialty Diagnoses / Procedures Referred By Conor t Referred To Contact Diagnoses Seizure Partial Complex (HCC) Procedures EEG Megan Mcgrath M.B.B.S. [address] [place] [phone] [facility] Referral ID Status Reason Start Date Expiration Date Visits Re quested Visits Authorized [id number] Closed 05/15/2023 05/14/2024 1 1 T SET UP SPECIALIST Reason for Visit * Reason Onset Date Comments Pre-visit Testing Orders 05/15/2023 Encounter Details Date Type Department Care Team (Latest Contact Info) Description 05/15/2023 Clinical Communication Department of Neurology in [place], [place] [address] [place] [phone] Megan Mcgrath M.B.B.S. [address] [place] [phone] Pre-visit Testing Orders Social History Tobacco Use Types Packs/Day Years Used Date Smoking Tobacco: Never Nutrition Answer Date Recorded Nutrition: EVOO Fat Source Unknown 04/10 Nutrition: Servings of Fruits/Vegetables per Day Not on file 04/10/2023 Dental Answer Date Recorded Dental: Regular Dentist Unknown 04/10/20 23 Sex and Gender Information Value Date Recorded Sex Assigned at Female 05/24/2023 12:13 PM EVENT SET UP SPECIALIST Gender Identity Female 05/24/2023 12:13 PM EVENT SET UP SPECIALIST Sexual Orientation Straight 05/24/2023 12 :13 PM EVENT SET UP SPECIALIST documented as of this encounter Plan of Treatment Upcoming Encounters Date Type Department Care Team (Late st Contact Info) Description 09/02/2023 1:00 PM CDT Telemedicine Department of Neurology in [place], [place] [address] [place] [phone] Megan Mcgrath M.B.B.S. [address] [place] [phone] 11/03/2023 3:00 PM CDT Clinical Support Department of Neurology in [place], [place] [address] [place] [phone] Megan Mcgrath M.B.B.S. [address] [place] [address] documented as of this encounter Results * EEG (06/02/2023 4:07 PM EVENT SET UP SPECIALIST) Narrative MMODAL - 06/03/2023 7:17 AM EVENT SET UP SPECIALIST Images from the original result were not [...] Diagnoses Diagnosis Seizure Partial Complex (HCC)- Primary Seizure Partial Complex (HCC) documented in this encounter
--- OUTSIDE RECORDS SUMMARY | 2023-08-17 22:50 | XMS_ITS | Encounter Summary ---
Author Name Unknown Organization [facility] Address [address] [place] [address] Care Team Providers Care Pre Sales Network Engineer Name Role Phone Unavailable Primary Care Provider Unavailabl e Encounter Details Date Type Department Care Team (Late st Contact Info) Description 06/03/2023 Virtual Visit Department of Neurology in [place], [place] [address] [place] [phone] Jaswant Verduzco M.D. [address] [place] [phone] Seizure Partial Complex (HCC) (Primary Dx) Social History Tobacco Use Types Packs/Day Years Used Date Smoking Tobacco: Never Smokeless Tobacco: Never Alcohol Use Standard Drinks/Week Comments Not Currently 3 (1 standard drink = 0.6 oz pur e alcohol) Before quitting [facility] Utilities Answer Date Recorded In the past 12 months has [facility] [employer], gas, oil, or water [employer] threatened to shut off services in your [...] a [facility] place to live 06/05/2023 Sex and Gender Information Value Date Recorded Sex Assigned at Female 05/24/2023 12:13 PM CIRCUIT MANAGER Gender Identity Female 05/24/2023 12:13 PM CIRCUIT MANAGER Sexual Orientation Straight 05/24/2023 12 :13 PM CIRCUIT MANAGER documented as of this encounter Consult Notes * Jaswant Verduzco M.D. - 06/03/2023 11:51 AM CST Please see 06-04-23 note UIT MANAGER documented in this encounter Plan of Treatment Upcoming Encounters Date Type Department Care Team (Late st Contact Info) Description 09/02/2023 1:00 PM CDT Telemedicine Department of Neurology in [place], [place] [address] [place] [phone] Megan Mcgrath M.B.B.S. [address] [place] [phone] 11/03/2023 3:00 PM CDT Clinical Support Department of Neurology in [place], [place] [address] [place] [address] Megan Mcgrath M.B.B.S. [address] [place] [phone] documented as of this encounter Visit Diagnoses Diagnosis Seizure Partial Complex (HCC)- Primary documented in this encounter
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
--- OUTSIDE RECORDS SUMMARY | 2023-08-17 22:50 | XMS_ITS | Encounter Summary ---
Author Name Unknown Organization [facility] Address [address] [place] [id number] Care Team Providers Care Operations Support Professionals Name Role Phone Unavailable Primary Care Provider Unavailabl e Reason for Visit * Reason Onset Date Comments New Med Request 07/17/2023 Ramila Encounter Details Date Type Department Care Team (Latest Contact Info) Description 07/17/2023 Clinical Communication Department of Neurology in [place], [place] [address] [place] [phone] Megan Mcgrath M.B.B.S. [address] [place] [phone] New Med Request (Ramila) Social History Tobacco Use Types Packs/Day Years Used Date Smoking Tobacco: Never Smokeless Tobacco: Never Alcohol Use Standard Drinks/Week Comments Not Currently 3 (1 standard drink = 0.6 oz pur e alcohol) Before quitting [facility] Utilities Answer Date Recorded In the past 12 months has e Meet[employer], gas, oil, or water [employer] threatened to shut off services in your [...] your living situation today? 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 - 07/17/2023 10:31 AM CDT I called the pharmacy and made the changes! Thank you! documented in this encounter Plan of Treatment Upcoming Encounters Date Type Department Care Team (Late st Contact Info) Description 09/02/2023 1:00 PM CDT Telemedicine Department of Neurology in [place], [place] [address] [place] [phone] Megan Mcgrath M.B.B.S. [address] [place] [phone] 11/03/2023 3:00 PM CDT Clinical Support Department of Neurology in [place], [place] [address] [place] [phone] Megan Mcgrath M.B.B.S. 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
--- OUTSIDE RECORDS SUMMARY | 2023-08-17 22:50 | XMS_ITS | Encounter Summary ---
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 swallow. Theseabnormalities suggest a convulsive disorder. Frontal focality is noted although no laterality is noted. 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 Plummer is being admitted to Epilepsy Monitoring Unit for pre-surgical evaluation. PLAN The patient will not be sleep deprived Other provoking mechanisms used: Yes - photic stim The patient must wear a harness / or be supervised when ambulatory and has agreed with this plan. Home AED: Briviact 250 mg BID, Lamotrigine 300/400/300/200 EMU AED: Briviact 100 mg BID, Lamotrigine 300 mg TID -Neuropsych testing will be arranged as outpatient per inpatient team request -f/u labs to be obtained 06/05/23 with trough lamotrigine, CBC, CMP RESCUE PLAN Give 2 mg IV of Lorazepam if 2 GTCs in 12 hrs or 3 GTCs in 24 hrs, or a GTC greater than 5 minutes,or 6 partial seizures in 24 hours or a partial seizure greater than 10 minutes, always page on-callconsultant or fellow For status epilepticus - always page on-call operations consultant or fellow; Lorazepam 2-4 mg IV, max 8 mg Status epilepticus care process models: [email or web address] Post Ictal Testing: Motor and Language Code Status: Full Code discussed with patient. Kelley Javed P.A.-C. 06/05/2023 Inpatient admission for EEG monitoring is necessary to ensure close monitoring due to the potentialrisks of seizures including status epilepticus, accidental injury, and SUDEP. The risk of medication withdrawal was discussed with patient, including seizure clusters and prolonged seizures which mayneed emergent treatment. SS CONTROL OFFICER documented in this encounter Nursing Notes * Deloris Bauman R.N. - 06/08/2023 12:39 PM CST Patient discharged to home and self-care. IV was removed and discharge vitals were stable. AVS was reviewed with the patient. All education was completed and all questions were answered. Patient leftunit with transport at 1225, meeting to be picked up. Blood pressure 114/77, pulse 72, temperature 37 ??C, temperature source Oral, resp. rate 16, .6 cm, weight 80.7 kg, SpO2 98%. s Electronically signed by: Deloris Bauman R.N. 06/08/23 3:34 PM ACCESS CONTROL OFFICER SS CONTROL OFFICER * Deloris Bauman R.N. - 06/08/2023 11:59 AM CST Shift Goals: Clinical Goals for the Shift: pt will safely discharge Identify possible barriers to meeting goals/advancing plan of care: None End of Shift Summary: Goal met. Patient discharging. See discharge note for details. Problem: PAIN - ADULT Goal: PT VERBALIZES/DEMONSTRATES ADEQUATE COMFORT LEVEL OR BASELINE Outcome: Adequate for Discharge Problem: KNOWLEDGE DEFICIT Goal: Patient/family/caregiver demonstrates understanding of disease process, treatment plan, medications, and discharge instructions Outcome: Adequate for Discharge Problem: INFECTION - ADULT Goal: Absence of infection during hospitalization Outcome: Adequate for Discharge Problem: SKIN/TISSUE INTEGRITY Goal: Skin/Tissue integrity maintained or improved Outcome: Adequate for Discharge Goal: Oral and Nasal mucous membranes remain intact Outcome: Adequate for Discharge Problem: SAFETY ADULT Goal: Maintain a safe environment Outcome: Adequate for Discharge Problem: DISCHARGE PLANNING Goal: Patient discharge needs identified Outcome: Adequate for Discharge Problem: SAFETY ADULT - RISK FOR FALL AND OR FALL INJURY Goal: Patient remains free from fall/fall injury Outcome: Adequate for Discharge Problem: PAIN - ADULT Goal: PT VERBALIZES/DEMONSTRATES ADEQUATE COMFORT LEVEL OR BASELINE Outcome: Adequate for Discharge Problem: KNOWLEDGE DEFICIT Goal: Patient/family/caregiver demonstrates understanding of disease process, treatment plan, medications, and discharge instructions Outcome: Adequate for Discharge Problem: INFECTION - ADULT Goal: Absence of infection during hospitalization Outcome: Adequate for Discharge Problem: SKIN/TISSUE INTEGRITY Goal: Skin/Tissue integrity maintained or improved Outcome: Adequate for Discharge Goal: Oral and Nasal mucous membranes remain intact Outcome: Adequate for Discharge Problem: SAFETY ADULT Goal: Maintain a safe environment Outcome: Adequate for Discharge Problem: DISCHARGE PLANNING Goal: Patient discharge needs identified Outcome: Adequate for Discharge Problem: SAFETY ADULT - RISK FOR FALL AND OR FALL INJURY Goal: Patient remains free from fall/fall injury Outcome: Adequate for Discharge SS CONTROL OFFICER * Carie Carias R.N. - 06/08/2023 6:28 AM CST Shift Goals: Clinical Goals for the Shift: Patient will not have a spell Identify possible barriers to meeting goals/advancing plan of care: None End of Shift Summary: Goal met. Patient to discharge today. Electronically signed by: Carie Carias R.N. 06/08/23 6:29 AM ACCESS CONTROL OFFICER SS CONTROL OFFICER * Carie Carias R.N. - 06/07/2023 6:44 AM CST Shift Goals: Clinical Goals for the Shift: Patient will have a spell Identify possible barriers to meeting goals/advancing plan of care: None End of Shift Summary: Goal met. See previous notes for details. Electronically signed by: Carie Carias R.N. 06/07/23 6:45 AM ACCESS CONTROL OFFICER SS CONTROL OFFICER * Carie Carias R.N. - 06/07/2023 3:18 AM CST 06/07/23 0309 Seizure Activity Deviation Eyes left;Head left Motor Component Generalized Arm;Stiffening Motor Component Right Arm;Stiffening Motor Component Left Arm;Stiffening Duration 1 minute 30seconds Postictal Somnolence;Aphasic Interventions Oxygen;Suction;Medication;Notified MD;Padded siderails Tasking Unable to respond Epi techs ran into room as patient was having a seizure. Patient's head and eyes turned to the left. Arms stiffened. Patient was turn on side, oxygen and suction were applied. IV Ativan given. Awaiting other medications to be verified/sent up from pharmacy. Electronically signed by: Carie Carias R.N. 06/07/23 3:19 AM ACCESS CONTROL OFFICER SS CONTROL OFFICER * Carie Carias R.N. - 06/07/2023 2:17 AM CST 06/07/23 0147 Seizure Activity Deviation Eyes right Motor Component Generalized Arm;Stiffening Motor Component Right Arm;Stiffening (R arm flexion) Motor Component Left Arm;Stiffening (L arm extension) Duration 1 minute 14 seconds Postictal Aphasic Interventions Oxygen;Suction;Padded siderails Tasking Unable to respond Epi techs ran into room as patient was having a seizure. Patient's eyes deviated to the right, R arm flexion and L arm extension noted. Patient was turned to right side. Episode lasted 1 minute 14 seconds. Oxygen and suction were applied. Electronically signed by: Carie Carias R.N. 06/07/23 2:19 AM ACCESS CONTROL OFFICER SS CONTROL OFFICER * Starla Reyna R.N. - 06/06/2023 6:18 PM CST Shift Goals: Clinical Goals for the Shift: Patient will have a spell Identify possible barriers to meeting goals/advancing plan of care: none End of Shift Summary: Patient had many symptoms today including metallic taste in her mouth, tingling in her right hand and both cheeks, and brain fog. These symptoms have been ongoing since 1300. Epi techs and service notified. Electronically signed by: Starla Reyna R.N. 06/06/23 6:19 PM ACCESS CONTROL OFFICER Problem: PAIN - ADULT Goal: PT VERBALIZES/DEMONSTRATES ADEQUATE COMFORT LEVEL OR BASELINE Outcome: Progressing Problem: KNOWLEDGE DEFICIT Goal: Patient/family/caregiver demonstrates understanding of disease process, treatment plan, medications, and discharge instructions Outcome: Progressing Problem: INFECTION - ADULT Goal: Absence of infection during hospitalization Outcome: Progressing Problem: SKIN/TISSUE INTEGRITY Goal: Skin/Tissue integrity maintained or improved Outcome: Progressing Goal: Oral and Nasal mucous membranes remain intact Outcome: Progressing Problem: SAFETY ADULT Goal: Maintain a safe environment Outcome: Progressing Problem: DISCHARGE PLANNING Goal: Patient discharge needs identified Outcome: Progressing Problem: SAFETY ADULT - RISK FOR FALL AND OR FALL INJURY Goal: Patient remains free from fall/fall injury Outcome: Progressing SS CONTROL OFFICER documented in this encounter Miscellaneous Notes * Hospital Course - Denita Bazzi APRN, C.N.P., M.S. - 06/05/2023 10:39 AM CST The patient was admitted to the Epilepsy Monitoring Unit on 06/05/23 for a presurgical evaluation. EEG electrodes were applied, and continuous video EEG monitoring was initiated. In order to provoke seizures, antiseizure medications were reduced. We recorded EEG abnormalities compatible with a generalized seizure disorder. Please see the final EEG report for details. We recommend initiating the new medication Fycompa. This medication could increase mood issues but this does not often occur. Fycompa will need to be started slowly. Please follow the titration schedule provided to you. Please continue the current Brivaracetam prescription. The lamotrigine dose may be reduced to 800 mg per day from 1200 mg per day and will also be switched to the extended-release version. A new prescription has been written for Lamotrigine ER 400 mg twice daily. This may be started as soon as you are able to obtain the new prescription. Other antiseizure medications such as the Brivaracetam may be gradually reduced under direction of Dr. Mcgrath and Dr. Verduzco in the future. Follow up with Dr. Mcgrath has been ordered and will be scheduled in 3 months. Please watch the patient portal for updates to your appointments. In addition, VNS could be tried. VNS decreases seizure frequency by 10-15%. However, not everyone benefits at the same percentage. This is patient-specific. After consideration, please let Dr. Healyror Dr. Verduzco know whether you would like to proceed with neurosurgery consultation for this. SS CONTROL OFFICER documented in this encounter Plan of Treatment Upcoming Encounters Date Type Department Care Team (Late st Contact Info) Description 09/02/2023 1:00 PM CDT Telemedicine Department of Neurology in [place], [place] [address] [place] [address] Megan Mcgrath M.B.B.S. [address] [place] [address] 11/03/2023 3:00 PM CDT Clinical Support Department of Neurology in [place], [place] [address] [place] [address] Megan Mcgrath M.B.B.S. [address] [place] [phone] Scheduled Referrals Name Type Priority Associated Diagnoses Orde r Schedule Neurology office visit (clinic) Outpatient Referral Routine Expected: 09/06/2023 (Approximate), Expires: 09/05/2024 documented as of this encounter Procedures Procedure Name Priority Date/Time Associated Diagnosis Comments EPILEPSY MONITORING UNIT (EMU) ADMISSION Routine 06/08/2023 10:37 AM ACCESS CONTROL OFFICER Seizure Partial Complex (HCC) VIDEO EEG MONITORING Routine 06/08/2023 10:33 AM ACCESS CONTROL OFFICER VIDEO EEG MONITORING Routine 06/07/2023 5:00 AM ACCESS CONTROL OFFICER VIDEO EEG MONITORING Routine 06/06/2023 5:00 AM ACCESS CONTROL OFFICER LAMOTRIGINE LEVEL, S Timed 06/05/2023 11:05 AM ACCESS CONTROL OFFICER COMPREHENSIVE METABOLIC PANEL, S/P Timed 06/05/2023 11:05 AM ACCESS CONTROL OFFICER CBC WITH DIFFERENTIAL, B Timed 06/05/2023 11:04 AM ACCESS CONTROL OFFICER ECG Routine 06/05/2023 8:39 AM ACCESS CONTROL OFFICER documented in this encounter Results * Epilepsy monitoring unit (EMU) admission (06/08/2023 10:37 AM ACCESS CONTROL OFFICER) Narrative MMODAL - 06/11/2023 5:22 PM ACCESS CONTROL OFFICER Ready for staff review EEG MONITORING UNIT [...] * Video EEG monitoring (06/08/2023 10:33 AM ACCESS CONTROL OFFICER) Narrative MMODAL - 06/11/2023 5:20 PM ACCESS CONTROL OFFICER Ready for staff review EEG MONITORING UNIT [...] interpretation. Kelley Javed P.A.-C. NEUROLOGY ORDER SANA MMODAL NA * Video EEG monitoring (06/07/2023 5:00 AM ACCESS CONTROL OFFICER) Narrative MMODAL - 06/08/2023 6:34 PM ACCESS CONTROL OFFICER EEG MONITORING UNIT DAILY EEG REPORT Report: [...] on time - 01:47:22 Duration - electrographic: 01:09:55, ??clinical: 01:14 Pre-ictal symptoms: at around 17:00, [...] patient is sitting in bed in the [facility], she then has versive head turn to [...] P.A.-C. NEUROLOGY ORDER SANA Performing Organization Address [facility] de Phone Number MMODAL NA * Video EEG monitoring (06/06/2023 5:00 AM ACCESS CONTROL OFFICER) Narrative MMODAL - 06/06/2023 3:12 PM ACCESS CONTROL OFFICER EEG MONITORING UNIT DAILY EEG REPORT Report: [...] P.A.-C. NEUROLOGY ORDER SANA Performing Organization Address [facility] de Phone Number MMODAL NA * Lamotrigine Level (06/05/2023 11:05 AM ACCESS CONTROL OFFICER) Lamotrigine, S 23.3 3.0 - 15.0 mcg/mL 06/06/2023 11:49 AM ACCESS CONTROL OFFICER [facility] Comment: ----ADDITIONAL INFORMATION---- This test was developed and its performance characteristics determined by [facility] in a manner consistent with CLIA requirements. This test has not been cleared or approved by the U.S. Food and Drug Administration. Blood (Blood, Venous) 06/05/2023 11:05 AM ACCESS CONTROL OFFICER 06/06/2023 7:32 AM ACCESS CONTROL OFFICER Kelley Javed P.A.-C. LAB BLOOD NON A DD-ON [facility] [address] [place] [address] [facility] [address] [place] [address] [place] [address] * Comprehensive Metabolic Panel (06/05/2023 11:05 AM ACCESS CONTROL OFFICER) Potassium, S 5.2 3.6 - 5.2 mmol/L 06/05/2023 1:24 PM ACCESS CONTROL OFFICER DTL Sodium, S 140 135 - 145 mmol/L 06/05/2023 1:24 PM ACCESS CONTROL OFFICER DTL Chloride, S 105 98 - 107 mmol/L 06/05/2023 1:24 PM ACCESS CONTROL OFFICER DTL Bicarbonate, S 25 22 - 29 mmol/L 06/05/2023 1:24 PM ACCESS CONTROL OFFICER DTL Anion Gap 10 7 - 15 06/05/2023 1:24 PM ACCESS CONTROL OFFICER DTL BUN (Blood Urea Nitrogen), S 17 6 - 21 mg/dL 06/05/2023 1:24 PM ACCESS CONTROL OFFICER DTL Creatinine 0.85 0.59 - 1.04 mg/dL 06/05/2023 1:24 PM ACCESS CONTROL OFFICER DTL Estimated GFR (eGFR) 83 >=60 mL/min/BS A 06/05/2023 1:24 PM ACCESS CONTROL OFFICER DTL Comment: Estimated GFR calculated using the 2020 CKD_EPI creatinine equation. Calcium, Total, S 9.7 8.6 - 10.0 mg/dL 06/05/2023 1:24 PM ACCESS CONTROL OFFICER DTL Glucose, S 84 70 - 140 mg/dL 06/05/2023 1:24 PM ACCESS CONTROL OFFICER DTL Protein, Total, S 6.9 6.3 - 7.9 g/dL 06/05/2023 1:24 PM ACCESS CONTROL OFFICER DTL Albumin, S 4.4 3.5 - 5.0 g/dL 06/05/2023 1:24 PM ACCESS CONTROL OFFICER DTL Aspartate Aminotransferase (AST), S 24 8 - 43 U/L 06/05/2023 1:24 PM ACCESS CONTROL OFFICER DTL Alkaline Phosphatase, S 100 35 - 104 U/L 06/05/2023 1:24 PM ACCESS CONTROL OFFICER DTL Alanine Aminotransferase (ALT), S 38 7 - 45 U/L 06/05/2023 1:24 PM ACCESS CONTROL OFFICER DTL Bilirubin, Total, S 0.2 0.0 - 1.2 mg/dL 06/05/2023 1:24 PM ACCESS CONTROL OFFICER DTL Blood (Blood, Venous) 06/05/2023 11:05 AM ACCESS CONTROL OFFICER 06/05/2023 12:02 PM ACCESS CONTROL OFFICER Kelley Javed P.A.-C. LAB BLOOD ADD-O N [facility] [place] [address], [facility] DTL [facility] [address] [place] [address] * CBC with Differential, Blood (06/05/2023 11:04 AM ACCESS CONTROL OFFICER) Hemoglobin 13.5 11.6 - 15.0 g/dL 06/05/2023 11:56 AM ACCESS CONTROL OFFICER DTL Hematocrit 40.0 35.5 - 44.9 % 06/05/2023 11:56 AM ACCESS CONTROL OFFICER DTL Erythrocytes 4.45 3.92 - 5.13 x10(12)/L 06/05/2023 11:56 AM ACCESS CONTROL OFFICER DTL MCV 89.9 78.2 - 97.9 fL 06/05/2023 11:56 AM ACCESS CONTROL OFFICER DTL RBC Distrib Width 12.2 12.2 - 16.1 % 06/05/2023 11:56 AM ACCESS CONTROL OFFICER DTL Platelet Count 261 157 - 371 x10(9)/L 06/05/2023 11:56 AM ACCESS CONTROL OFFICER DTL Leukocytes 4.3 3.4 - 9.6 x10(9)/L 06/05/2023 11:56 AM ACCESS CONTROL OFFICER DTL Neutrophils 2.57 1.56 - 6.45 x10(9)/L 06/05/2023 11:56 AM ACCESS CONTROL OFFICER DHPM Lymphocytes 1.29 0.95 - 3.07 x10(9)/L 06/05/2023 11:56 AM ACCESS CONTROL OFFICER DTL Monocytes 0.36 0.26 - 0.81 x10(9)/L 06/05/2023 11:56 AM ACCESS CONTROL OFFICER DTL Eosinophils 0.10 0.03 - 0.48 x10(9)/L 06/05/2023 11:56 AM ACCESS CONTROL OFFICER DTL Basophils <0.03 0.01 - 0.08 x10(9)/L 06/05/2023 11:56 AM ACCESS CONTROL OFFICER DTL Blood (Blood, Venous) 06/05/2023 11:04 AM ACCESS CONTROL OFFICER 06/05/2023 11:49 AM ACCESS CONTROL OFFICER Kelley Javed P.A.-C. LAB BLOOD ADD-O N [facility] [address] [place] [address], [facility] DTL [facility] [address] [place] [address] DHPM [facility] [address] [place] [address] * ECG 12 Lead (06/05/2023 8:39 AM ACCESS CONTROL OFFICER) Ventricular Rate ECG/Min 75 BPM MUSE IN Interval 134 ms MUSE QRSD Interval 84 ms MUSE QT Interval 384 ms MUSE QTC Interval 428 ms MUSE P [place] 50 degrees MUSE R [place] 60 degrees MUSE T Wave [place] 35 degrees MUSE 06/05/2023 8:39 AM ACCESS CONTROL OFFICER 06/05/2023 8:46 AM ACCESS CONTROL OFFICER Impressions MUSE - 06/05/2023 8:46 AM ACCESS CONTROL OFFICER Normal sinus rhythm Nonspecific T wave abnormality No previous ECGs available Reviewed by PATRIZIA Moreira Narrative Procedure Note Federico Pool M.D. - 06/05/2023 IMPRESSION: Normal sinus rhythm Nonspecific T wave abnormality No previous ECGs available Reviewed by PATRIZIA Moreira Kelley T Tello Butcher ECG ORDERABLES MUSE NA documented in this encounter Visit Diagnoses Diagnosis Epilepsy Seizure Intractable Without Status Epilepticus (HCC)- Primary Seizure Partial Complex (HCC) Epilepsy Seizure Intractable Without Status Epilepticus (HCC) Adjustment Disorder With Anxious Mood Rhinitis Allergic documented in this encounter Admitting Diagnoses Diagnosis Epilepsy Seizure Intractable Without Status Epilepticus (HCC) documented in this encounter Administered Medications Inactive Administered Medications - up to 3 most recent administrations Medication Order MAR Action Action Date Dose Rate Site acetaminophen suppository 650 mg (TYLENOL) 650 mg, rectal, Every 4 hours PRN, mild pain or score 1-3 of 10, moderate pain or score 4-6 of 10, Administer for pain greater than comfort goal or oral temperature greater than 38 degrees Celsius., Starting on Thu06/05/23 at 0828, Per patient preference acetaminophen tablet 650 mg (TYLENOL) 650 mg, oral, Every 4 hours PRN, mild pain or score 1-3 of 10, moderate pain or score 4-6 of 10, Administer for pain greater than comfort goal or oral temperature greater than 38 degrees Celsius., Starting on Thu06/05/23 at 0828, Per patient preference Given 06/07/2023 8:25 PM ACCESS CONTROL OFFICER 650 mg acetaminophen tablet 650 mg (TYLENOL) 650 mg, gastric tube, Every 4 hours PRN, mild pain or score 1-3 of 10, moderate pain or score 4-6 of 10, Administer for pain greater than comfort goal or oral temperature greater than 38 degrees Celsius., Starting on Thu06/05/23 at 0828, Per patient preference brivaracetam injection 300 mg (BRIVIACT) 300 mg, intravenous, Once, On Thu06/07/23 at 0300, For 1 dose Given 06/07/2023 3:40 AM ACCESS CONTROL OFFICER 300 mg brivaracetam tablet 100 mg (BRIVIACT) 100 mg, oral, 2 times daily, First dose on Thu06/05/23 at 2100, Swallow whole. Do NOT crush, chew, or split tablet. Given 06/06/2023 8:04 AM ACCESS CONTROL OFFICER 100 mg Given 06/05/2023 8:10 PM ACCESS CONTROL OFFICER 100 mg brivaracetam tablet 250 mg (BRIVIACT) 250 mg, oral, 2 times daily, First dose on 06/07/23 at 0900, Swallow whole. Do NOT crush, chew, or split tablet. Given 06/08/2023 8:34 AM ACCESS CONTROL OFFICER 250 mg Given 06/07/2023 8:26 PM ACCESS CONTROL OFFICER 250 mg Given 06/07/2023 8:35 AM ACCESS CONTROL OFFICER 250 mg citalopram tablet 20 mg (CeleXA) 20 mg, oral, Daily, First dose on 06/06/23 at 0900 Given 06/08/2023 8:34 AM ACCESS CONTROL OFFICER 20 mg Given 06/07/2023 8:36 AM ACCESS CONTROL OFFICER 20 mg Given 06/06/2023 8:04 AM ACCESS CONTROL OFFICER 20 mg enoxaparin injection 40 mg (LOVENOX) 40 mg, subcutaneous, Every 24 hours scheduled, First dose on 06/06/23 at 0900 Given 06/08/2023 8:34 AM ACCESS CONTROL OFFICER 40 mg Left Upper Abdomen Given 06/07/2023 8:35 AM ACCESS CONTROL OFFICER 40 mg Ri ght Lower Abdomen Given 06/06/2023 8:04 AM ACCESS CONTROL OFFICER 40 mg Ri ght Lower Abdomen ibuprofen tablet 400 mg (MOTRIN) 400 mg, oral, Every 6 hours PRN, mild pain or score 1-3 of 10, moderate pain or score 4-6 of 10, Starting on Thu06/05/23 at 0828, Per patient preference lamoTRIgine tablet 200 mg (LaMICtaL) 200 mg, oral, 2 times daily, First dose (after last modification) on Thu06/06/23 at 2100 Given 06/06/2023 9:05 PM ACCESS CONTROL OFFICER 200 mg lamoTRIgine tablet 200 mg (LaMICtaL) 200 mg, oral, Daily at bedtime, First dose on Thu06/07/23 at 2100 Given 06/07/2023 8:26 PM ACCESS CONTROL OFFICER 200 mg lamoTRIgine tablet 300 mg (LaMICtaL) 300 mg, oral, 3 times daily, First dose on Thu06/05/23 at 1400 Given 06/06/2023 8:04 AM ACCESS CONTROL OFFICER 300 mg Given 06/05/2023 8:11 PM ACCESS CONTROL OFFICER 300 mg Given 06/05/2023 1:45 PM ACCESS CONTROL OFFICER 300 mg lamoTRIgine tablet 300 mg (LaMICtaL) 300 mg, oral, 2 times daily, First dose on Thu06/07/23 at 0300 Given 06/08/2023 8:34 AM ACCESS CONTROL OFFICER 300 mg Given 06/07/2023 5:05 PM ACCESS CONTROL OFFICER 300 mg Given 06/07/2023 3:40 AM ACCESS CONTROL OFFICER 300 mg lamoTRIgine tablet 400 mg (LaMICtaL) 400 mg, oral, Daily after lunch, First dose on 06/07/23 at 1300 Given 06/07/2023 12:14 PM ACCESS CONTROL OFFICER 400 mg LORazepam injection 2 mg (ATIVAN) 2 mg, intravenous, Once, On 06/07/23 at 0300, For 1 dose, Shortage on injection, use oral when possible For intravenous use, dilute with equal volume of 0.9% NS Given 06/07/2023 3:12 AM ACCESS CONTROL OFFICER 2 m g LORazepam injection 2 mg (ATIVAN) 2 mg, intravenous, Once, On 06/07/23 at 0715, For 1 dose, Shortage on injection, use oral when possible For intravenous use, dilute with equal volume of 0.9% NS Given 06/07/2023 7:38 AM ACCESS CONTROL OFFICER 2 m g sodium chloride 0.9 % injection 3 mL 3 mL, intravenous, Every 12 hours scheduled, First dose on Thu06/05/23 at 0900, Peripheral Intravenous Catheter and Rapid Infusion Catheter, when no infusion to maintain patency Given 06/08/2023 8:35 AM ACCESS CONTROL OFFICER 3 mL Given 06/07/2023 8:25 PM ACCESS CONTROL OFFICER 3 mL Given 06/07/2023 8:36 AM ACCESS CONTROL OFFICER 3 mL documented in this encounter Active and Recently Administered Medications Times are shown in ACCESS CONTROL OFFICER. Scheduled Medication Order 06/06/2023 06/07/2023 06/08/2023 brivaracetam injection 300 mg (BRIVIACT) (COMPLETED) 300 mg, intravenous, Once, On 06/07/23 at 0300, For 1 dose 0340 (Given - Provider: Carie Carias R.N.) brivaracetam tablet 100 mg (BRIVIACT) (CANCELED) 100 mg, oral, 2 times daily, First dose on Thu06/05/23 at 2100, Swallow whole. Do NOT crush, chew, or split tablet. 0804 (Given - Provider: Starla Reyna R.N.) brivaracetam tablet 250 mg (BRIVIACT) 250 mg, oral, 2 times daily, First dose on 06/07/23 at 0900, Swallow whole. Do NOT crush, chew, or split tablet. 0835 (Given - Provider: Starla Reyna R.N.)2025 (Given - Provider: Carie Carias R.N.) 0834 (Given - Provider: Leticia Quintana R.N.) citalopram tablet 20 mg (CeleXA) 20 mg, oral, Daily, First dose on 06/06/23 at 0900 0804 (Given - Provider: Starla Reyna R.N.) 0836 (Given - Provider: Starla Reyna R.N.) 0834 (Given - Provider: Leticia Quintana R.N.) enoxaparin injection 40 mg (LOVENOX) 40 mg, subcutaneous, Every 24 hours scheduled, First dose on 06/06/23 at 0900 0804 (Given - Provider: Starla Reyna R.N.) 0835 (Given - Provider: Starla Reyna R.N.) 0834 (Given - Provider: Leticia Quintana R.N.) lamoTRIgine tablet 200 mg (LaMICtaL) (CANCELED) 200 mg, oral, 2 times daily, First dose (after last modification) on 06/06/23 at 2100 210 (Given - Provider: Carie Carias R.N.) lamoTRIgine tablet 200 mg (LaMICtaL) 200 mg, oral, Daily at bedtime, First dose on 06/07/23 at 2100 2025 (Given - Provider: Carie Carias R.N.) lamoTRIgine tablet 300 mg (LaMICtaL) (CANCELED) 300 mg, oral, 3 times daily, First dose on Thu06/05/23 at 1400 0804 (Given - Provider: Starla Reyna R.N.) lamoTRIgine tablet 300 mg (LaMICtaL) 300 mg, oral, 2 times daily, First dose on 06/07/23 at 0300 0340 (Given - Provider: Carie Carias R.N.)1705 (Given - Provider: Starla Reyna R.N.) 0834 (Given - Provider: Leticia Quintana R.N.) lamoTRIgine tablet 400 mg (LaMICtaL) 400 mg, oral, Daily after lunch, First dose on Thu06/07/23 at 1300 1214 (Given - Provider: Starla Reyna R.N.) LORazepam injection 2 mg (ATIVAN) (COMPLETED) 2 mg, intravenous, Once, On Thu06/07/23 at 0300, For 1 dose, Shortage on injection, use oral when possible For intravenous use, dilute with equal volume of 0.9% NS 0312 (Given - Provider: Carie Carias R.N.) LORazepam injection 2 mg (ATIVAN) (COMPLETED) 2 mg, intravenous, Once, On 06/07/23 at 0715, For 1 dose, Shortage on injection, use oral when possible For intravenous use, dilute with equal volume of 0.9% NS 0738 (Given - Provider: Starla Reyna R.N.) sodium chloride 0.9 % injection 3 mL 3 mL, intravenous, Every 12 hours scheduled, First dose on Thu06/05/23 at 0900, Peripheral Intravenous Catheter and Rapid Infusion Catheter, when no infusion to maintain patency 0805 (Given - Provider: Starla Reyna R.N.)2105 (Given - Provider: Carie Carias R.N.) 0836 (Given - Provider: Starla Reyna R.N.)2024 (Given - Provider: Carie Carias R.N.) 0835 (Given - Provider: Leticia Quintana R.N.) PRN Medication Order 06/06/2023 06/07/2023 06/08/2023 acetaminophen suppository 650 mg (TYLENOL)(Linked Group 1) 650 mg, rectal, Every 4 hours PRN, mild pain or score 1-3 of 10, moderate pain or score 4-6 of 10, Administer for pain greater than comfort goal or oral temperature greater than 38 degrees Celsius., Starting on Thu06/05/23 at 0828, Per patient preference 2024 (See Alternative - Provider: Carie Carias R.N.) acetaminophen tablet 650 mg (TYLENOL)(Linked Group 1) 650 mg, oral, Every 4 hours PRN, mild pain or score 1-3 of 10, moderate pain or score 4-6 of 10, Administer for pain greater than comfort goal or oral temperature greater than 38 degrees Celsius., Starting on Thu06/05/23 at 0828, Per patient preference 2024 (Given - Provider: Bessy Carias R.N.) acetaminophen tablet 650 mg (TYLENOL)(Linked Group 1) 650 mg, gastric tube, Every 4 hours PRN, mild pain or score 1-3 of 10, moderate pain or score 4-6 of 10, Administer for pain greater than comfort goal or oral temperature greater than 38 degrees Celsius., Starting on Thu06/05/23 at 0828, Per patient preference 2024 (See Alternative - Provider: Carie Carias R.N.) calcium carbonate chewable tablet 400 mg of calcium (TUMS) 400 mg of calcium, oral, Every 4 hours PRN, indigestion, Starting on Thu06/05/23 at 0828, Doses listed are in mg of elemental calcium. Take with food. 500 mg calcium carbonate contains 200 mg of elemental calcium. diphenhydrAMINE capsule 25 mg (BENADRYL) 25 mg, oral, Every 6 hours PRN, itching, Starting on Thu06/05/23 at 0828, May repeat x 1 dosing interval. ibuprofen tablet 400 mg (MOTRIN)(Linked Group 1) 400 mg, oral, Every 6 hours PRN, mild pain or score 1-3 of 10, moderate pain or score 4-6 of 10, Starting on Thu06/05/23 at 0828, Per patient preference 2024 (See Alternative - Provider: Carie Carias R.N.) LORazepam injection 2 mg (ATIVAN) 2 mg, intravenous, Every 12 hours PRN, 2 GTC seizures within 12 hours or GTC seizure greater than 5 minutes or 6 partial seizures within 24 hours or partial seizures greater than 10 minutes, Starting on Thu06/05/23 at 0828, Notify service AFTER administration. Administer IV push at 1 mg/minute. Monitoring includes respiratory rate, blood pressure, continuous monitoring of heart rate and oxygen saturation (pulse oximetry) during lorazepam administration. Shortage on injection, use oral when possible For intravenous use, dilute with equal volume of 0.9% NS midazolam (PF) injection 10 mg (VERSED) 10 mg, intramuscular, Every 12 hours PRN, 2 GTC seizures within 12 hours or GTC seizure greater than 5 minutes or 6 partial seizures within 24 hours or partial seizures greater than 10 minutes, Starting on Thu06/05/23 at 0828, Please notify Service AFTER administration. (Administer only if no iv access) sennosides-docusate sodium 8.6-50 mg per tablet 2 tablet (SENOKOT-S) 2 tablet, oral, Bedtime PRN, constipation, Starting on Thu06/05/23 at 0828 sodium chloride 0.9 % injection 10 mL 10 mL, intravenous, As needed, line care, Starting on Thu06/05/23 at 0828, Peripheral Intravenous Catheter and Rapid Infusion Catheter, prior to blood sampling, post blood transfusion or post blood sampling sodium chloride 0.9 % injection 3 mL 3 mL, intravenous, As needed, line care, Starting on Thu06/05/23 at 0828, Prior to and following infusion and between multiple consecutive infusions: sodium chloride 0.9 % injection Linked Groups Order Group 1: acetaminophen tablet 650 mg (TYLENOL)Jump to med 650 mg, oral, Every 4 hours PRN, mild pain or score 1-3 of 10, moderate pain or score 4-6 of 10, Administer for pain greater than comfort goal or oral temperature greater than 38 degrees Celsius., Starting on Thu06/05/23 at 0828, Per patient preference Or acetaminophen tablet 650 mg (TYLENOL)Jump to med 650 mg, gastric tube, Every 4 hours PRN, mild pain or score 1-3 of 10, moderate pain or score 4-6 of 10, Administer for pain greater than comfort goal or oral temperature greater than 38 degrees Celsius., Starting on Thu06/05/23 at 0828, Per patient preference Or acetaminophen suppository 650 mg (TYLENOL)Jump to med 650 mg, rectal, Every 4 hours PRN, mild pain or score 1-3 of 10, moderate pain or score 4-6 of 10, Administer for pain greater than comfort goal or oral temperature greater than 38 degrees Celsius., Starting on Thu06/05/23 at 0828, Per patient preference Or ibuprofen tablet 400 mg (MOTRIN)Jump to med 400 mg, oral, Every 6 hours PRN, mild pain or score 1-3 of 10, moderate pain or score 4-6 of 10, Starting on Thu06/05/23 at 0828, Per patient preference documented in this encounter
[2023-08-20 00:43] LABS: Lamotrigine 13.7 ug/mL (3.0-15.0)
== END 2023-08-17 22:47 | disposition home or self-care (01) ==
LOC: NPINS 22:46
PROVIDERS: Psychiatry & Neurology Neurology; PCP Internal Medicine
DX: G40.919 Epilepsy, unspecified, intractable, without status epilepticus (principal); Z79.899 Other long term (current) drug therapy
CPT/HCPCS: 80175

== ENCOUNTER 2024-08-12 11:50 | Outpatient (CLI) | payer OTHER, SELFPAY ==
--- NOTE | 2024-08-12 12:59 | P.ANES_ITS ---
Anesthesia Charges Start Date/Time Anesthesia Start Date: 08/12/24 Anesthesia Start Time: 12:35 Stop Date/Time Anesthesia Stop Date: 08/12/24 Anesthesia Stop Time: 13:00 Coding CPT Codes CPT Codes: ANES LWR INTST SCR COLSC - 63622 ([id number]) P2 - PATIENT W/MILD SYST DISEASE, QK - NAPPER TENDER 2-4 CNCRNT ANES PROC, QX - REGISTERED NURSING PROFESSOR SVC W/ MD MED DIRECTION
--- NOTE | 2024-08-12 12:59 | W.ANESCHARGE ---
Anesthesia Charges Start Date/Time Anesthesia Start Date: 08/12/24 Anesthesia Start Time: 12:35 Stop Date/Time Anesthesia Stop Date: 08/12/24 Anesthesia Stop Time: 13:00 Coding CPT Codes CPT Codes: ANES LWR INTST SCR COLSC - 21415 ([id number]) P2 - PATIENT W/MILD SYST DISEASE, QK - CLAIM ATTORNEY 2-4 CNCRNT ANES PROC, QX - PUBLIC HEALTH DIRECTOR SVC W/ MD MED DIRECTION
--- NOTE | 2024-08-12 13:11 | P.ANES_ITS ---
Anesthesia Charges Start Date/Time Anesthesia Start Date: 08/12/24 Anesthesia Start Time: 12:35 Stop Date/Time Anesthesia Stop Date: 08/12/24 Anesthesia Stop Time: 13:00 Coding CPT Codes CPT Codes: GT LWR INTST SCR COLSC - 39849 ([id number]) QK - PREPARATION ROOM WORKER 2-4 CNCRNT GT PROC, QX - PEARL DIGGER SVC W/ MD MED DIRECTION, P2 - PATIENT W/MILD SYST DISEASE
--- NOTE | 2024-08-12 13:11 | W.ANESCHARGE ---
Anesthesia Charges Start Date/Time Anesthesia Start Date: 08/12/24 Anesthesia Start Time: 12:35 Stop Date/Time Anesthesia Stop Date: 08/12/24 Anesthesia Stop Time: 13:00 Coding CPT Codes CPT Codes: GT LWR INTST SCR COLSC - 83260 ([id number]) QK - SPINNING FRAME TENDER 2-4 CNCRNT GT PROC, QX - RESIDENTIAL PEST CONTROL TECHNICIAN SVC W/ MD MED DIRECTION, P2 - PATIENT W/MILD SYST DISEASE
== END 2024-08-12 11:51 | disposition home or self-care (01) ==
LOC: OP CLINIC 11:52
PROVIDERS: PCP Student in an Organized Health Care Education/Training Program; Visit Provider Internal Medicine Gastroenterology
DX: Z12.11 Encounter for screening for malignant neoplasm of colon (principal); K57.30 Diverticulosis of large intestine without perforation or abscess without bleeding
CPT/HCPCS: 00812; 45378; J2704